=== PATIENT | female | born 1945 | race Caucasian/White ===

== ENCOUNTER → 2019-05-31 09:07 | Outpatient (BNVA) | payer MEDICARE, OTHER, SELFPAY | PROVIDERS: Family Provider Family Medicine; PCP Family Medicine; Visit Provider Internal Medicine Cardiovascular Disease | DX: E87.6 Hypokalemia (principal) | CPT/HCPCS: 80048 ==

== ENCOUNTER 2019-06-04 06:57 | Day surgery (SDC) | payer MEDICARE, OTHER, SELFPAY ==
[2019-06-03 11:52] VITALS: BMI 38.4
[2019-06-04 08:01] VITALS: BP 136/84; PULSE 70; RESP 18; TEMP 36.6; O2SAT 93
[2019-06-04] MEDS: sodium chloride 0.9% 1,000 ML 30 ML IV (08:08)
[2019-06-04] MEDS: ondansetron 2 mg/ML SDV 2 mL 4 MG IVP (08:17)
--- NOTE | 2019-06-04 08:33 | ANES.PREANES ---
Pre-Anesthetic Assessment Pre-Anesthetic Assessment: Height/Weight: Height 1.63 m Weight 101.605 kg Temp Pulse Resp BP Pulse Ox 98 F 70 18 136/84 93 06/04/19 08:01 06/04/19 08:01 06/04/19 08:01 06/04/19 08:01 06/04/19 08:01 Preop Diagnosis: dysphagia Proposed Procedure: Operation Date: 06/04/19 08:00 Proposed Procedures p EGD(Not Applicable) - Dhiraj Driscoll MD Familial anesthetic complications: ONce couldn't breath when she woke up after a hernia (did not require ETT; only supplemental O2) Was Beta Laura taken within 24 hours: Yes Last intake: Intake Last Liquid Date 06/03/19 Last Liquid Time 23:30 Last Solid Date 06/02/19 Last Solid Time 18:00 Social: Social History: No alcohol and No tobacco Exam: Pre-Anes Outpt Exam: alert, oriented x 3, clear to auscultation bilaterally and regular rate & rhythm Airway: Submandibular: Other (receding chin) MP: 4 Dentition: Full Pulmonary: Pulmonary: SOB CV/HEM: CV/HEM: Afib, Angina (Stable), Arrythmia and HTN Comments: MItral and aortic valve replaced : : Chronic renal failuer Hepatic: Hepatic: None reported GI: GI: Hiatus hernia Metabolic: Metabolic: DM, Morbid obesity and Thyroid Musc/skel: Musc/skel: OA/DJD Neuropsych: Neuropsych: TIA Anesthetic Plan: ASA status: IV Anesthesia: MAC Risk of > 500 ml blood loss (7ml/kg in children): No Other Pertinent Information: Took warfarn yesterday Meds/Allergies Current Medications: Current Medications Generic Name Dose Route Start Last Admin Trade Name Freq PRN Reason Stop Dose Admin Sodium Chloride 1,000 mls @ 30 ml s/hr 06/04/19 06:30 06/04/19 08:08 Sodium Chloride 0.9% IV 06/05/19 06:29 30 mls/hr .Q24H JACE Administration Ondansetron HCl 4 mg 06/04/19 06:24 06/04/19 08:17 Zofran IVP 4 mg Q15M PRN Administration Nausea/Vomiting P ACU PHASE II PFSH Anesthesia PFSH: Medical History (Updated 06/03/19 @ 19:25 by Ada Mcnair MD) Atrial fibrillation (Acute) Valvular heart disease (Acute) Social History (Updated 05/29/19 @ 14:46 by Becca Winters LPN) Smoking and tobacco status: never smoked Second hand smoke exposure: No Data Anesthesia Cardiac Studies: No Data to Display
--- NOTE | 2019-06-04 08:33 | PM.HPUD ---
H&P update H&P Update: DATE OF SURGERY/PROCEDURE: 06/04/19 DATE H&P PERFORMED: 05/02/19 H&P UPDATE INFORMATION: H&P completed within last 30 days, No changes to prior documentation and H&P to be scanned into chart PLANNED PROCEDURE: Operation Date: 06/04/19 08:00 Proposed Procedures p EGD(Not Applicable) - Dhiraj Driscoll MD Full H&P Medications/Allergies: Current Medications: Current Medications Generic Name Dose Route Start Last Admin Trade Name Freq PRN Reason Stop Dose Admin Sodium Chloride 1,000 mls @ 30 ml s/hr 06/04/19 06:30 06/04/19 08:08 Sodium Chloride 0.9% IV 06/05/19 06:29 30 mls/hr .Q24H JACE Administration Ondansetron HCl 4 mg 06/04/19 06:24 06/04/19 08:17 Zofran IVP 4 mg Q15M PRN Administration Nausea/Vomiting P ACU PHASE II Perinent History: Medical/Surgical History: Medical History (Updated 06/03/19 @ 19:25 by Ada Mcnair MD) Atrial fibrillation (Acute) Valvular heart disease (Acute) Social History: Social History Smoking and tobacco status: never smoked Second hand smoke exposure: No
[2019-06-04 08:56] VITALS: BP 124/67; PULSE 69; RESP 16; TEMP 36.9; O2SAT 96
--- NOTE | 2019-06-04 08:57 | ANE.PACU ---
 Inpatient post-anesthesia follow up: Airway intact: Yes Vital signs: Temperature 98 F Pulse Rate [Apical ] 70 Respiratory Rate 18 Blood Pressure [Le ft Arm] 136/84 Pulse Oximetry 93 Oxygen Delivery Me thod Oxygen Flow Rate Fraction of Inspir ed Oxygen Hydration adequate: Yes Pain level: 2 Mental status: Baseline
[2019-06-04 08:58] LABS: Glucose Point of Care 135 mg/dL (70-110)
[2019-06-04 09:11] VITALS: BP 130/74; PULSE 69; RESP 18; O2SAT 97
== END 2019-06-04 09:18 | disposition home or self-care (01) ==
PROVIDERS: Family Provider Family Medicine; PCP Family Medicine; Visit Provider Surgery
PROC: 0DJ08ZZ Inspection of Upper Intestinal Tract, Via Natural or Artificial Opening Endoscopic (ICD-10-PCS; CPT 43235; principal; 2019-06-04 08:00)
DX: R11.2 Nausea with vomiting, unspecified (principal); K22.2 Esophageal obstruction; K25.9 Gastric ulcer, unspecified as acute or chronic, without hemorrhage or perforation; K29.30 Chronic superficial gastritis without bleeding; E11.9 Type 2 diabetes mellitus without complications; E66.01 Morbid (severe) obesity due to excess calories; Z68.38 Body mass index [BMI] 38.0-38.9, adult; M19.90 Unspecified osteoarthritis, unspecified site; I48.91 Unspecified atrial fibrillation; Z79.01 Long term (current) use of anticoagulants; E03.9 Hypothyroidism, unspecified; I11.0 Hypertensive heart disease with heart failure; I50.9 Heart failure, unspecified; Z86.73 Personal history of transient ischemic attack (TIA), and cerebral infarction without residual deficits; E78.00 Pure hypercholesterolemia, unspecified; Z82.49 Family history of ischemic heart disease and other diseases of the circulatory system
CPT/HCPCS: 36416; 43239; 82962; 88305; J2405; J2704; J7030

== ENCOUNTER 2019-06-06 20:19 | Inpatient (IN) | payer MEDICARE, OTHER, SELFPAY ==
[2019-06-06] VITALS (10 sets, daily range): BP systolic 100–115; BP diastolic 40–51; PULSE 34–59; RESP 18–22; TEMP 36.7; O2SAT 91–98; BMI 37.7
--- NOTE | 2019-06-06 20:35 | ECG_ITS ---
Measurements Intervals [place] Rate: 74 P: [place]: 0 QRS: 78 QRSD: 85 T: 80 QT: 278 QTc: 310 Sinus bradycardia with first-degree AV block, occasional PACs and occasional junctional premature beats NONSPECIFIC T-WAVE ABNORMALITY ABNORMAL RHYTHM ECG Compared to ECG 05/16/2019 09:58:09 Aberrant conduction of supraventricular beat(s) now present T-wave abnormality now present Sinus rhythm no longer present Electronically Signed On 06-07-2019 14:38:21 [employer] by Roque Driscoll M.D. [id number]
--- NOTE | 2019-06-06 20:35 | XR_ITS ---
WS: [id number] Portable AP upright chest, 06/06/2019 Clinical Data: CHEST PAIN Comparison: Portable chest, 05/14/2019. Findings: The heart is slightly enlarged. The pulmonary vascularity is not increased. No nodules, mas ses or effusions are seen. Midline sternotomy sutures are present in the patient is had cardiac valve replacement. Monitor leads are on the chest wall. No pneumonia or pneumothorax is seen. XR/XR chest 1V portable [id number] Impression: Cardiomegaly and mitral and aortic valve replacement.
--- NOTE | 2019-06-06 20:37 | ED_ITS ---
Entered by Candie Smith, acting as scribe for HPI - Chest Pain General: Chief Complaint: Chest Pain Stated Complaint: LOW HR Time Seen by Provider: 06/06/19 20:34 Source: patient and family Mode of arrival: ambulatory Limitations: no limitations History of Present Illness: HPI narrative: 73 yo female presents to ED with complaints of chest pain. The patient states sick and not feeling well for a while. She said last 2 days pain in shoulders and neck. She said she is short of breath and feels like she has ran miles. She said she has been shaky all over, especially her head, since about 05.31.19. complaint: chest pain and chest discomfort Onset (ago): day(s) (2) Timing of current episode: constant Onset: during rest Pain location: other (neck, shoulders) Pain radiation: back Severity: severe Quality: sharp Relieving factors: nothing Exacerbating factors: nothing Associated symptoms: Reports dyspnea; Deny abdominal pain, diaphoresis, fever(s), nausea, palpitations or vomiting Review of Systems General: Reports: other (negative unless marked) Const: Denies: fever, chills, body aches, fatigue, malaise or diaphoresis Eyes: Denies: change in vision or blurry vision ENMT: Denies: throat pain, painful swallowing, hoarseness, ear pain, ear discharge, Change in hearing or nasal discharge Card: Denies: palpitations, pre-syncope, shortness of breath on exertion or shortness of breath when lying down Resp: Reports: shortness of breath GI: Denies: abdominal pain, nausea, vomiting, vomiting blood, coffee grounds in vomit, diarrhea, constipation, cramping, blood in stool or black tarry stool : Denies: flank pain, painful urination, urinary frequency, urinary urgency, decreased urine ouput, urinary incontinence or blood in urine Musc: Denies: extremity pain, extremity swelling, joint pain, joint swelling, joint warmth or joint stiffness Skin/Breast: Denies: rash, skin tenderness or yellow skin Neuro: Denies: headache, numbness in extremities, weakness in extremities, changes in sensation, lack of coordination, difficulty walking, dizziness, vertigo or confusion Endo: Denies: excessive thirst, tired all the time, cold intolerance, excessive sweating, flushing or hot flashes Bin/Lymph: Denies: easy bruising, easy bleeding, petechiae or enlarged lymph nodes All/Imm: Denies: hives, throat swelling, tongue swelling, facial swelling or acute wheezing PFSH ED PFSH: Statuses (acute, chronic, etc) shown below reflect problem list status as previously entered and may not be historically accurate Medical History Atrial fibrillation (Acute) History of ablation and Maze procedure, on Betapace, follows with Dr. Mcnair Chronic anticoagulation (Acute) Chronic kidney disease, stage IV (severe) (Acute) Congestive heart failure (Acute) Chronic diastolic Diabetes mellitus type 2, noninsulin dependent (Acute) Hypercholesteremia (Acute) Hypertension (Acute) Hypothyroidism (Acute) Valvular heart disease (Acute) Bioprosthetic valve Surgical History H/O esophagogastroduodenoscopy (Acute) 06/17/2019: Gastric erosions, hiatal hernia History of hernia repair (Acute) History of hysterectomy (Acute) Hx of colonoscopy (Acute) Family History Other CAD (coronary artery disease) Social History Smoking and tobacco status: never smoked Second hand smoke exposure: No Alcohol intake: never Substance/Drug Use: never Household members: spouse Marital status: Physical Exam Const: COMMON NORMALS: no apparent distress, oriented x3, no limitations, healthy appearing and well nourished EXAM LIMITATIONS: no altered mental status GENERAL APPEARANCE: cooperative, well kempt and well developed ORIENTATION/CONSCIOUSNESS: Yes awake HENMT: COMMON NORMALS: normocephalic, head/scalp atraumatic, hearing grossly normal bilaterally, external ears normal, EAC's normal, external nose normal and moist oral mucous membranes HEAD & SCALP: normal to inspection, normocephalic and atraumatic FACE & SINUS: normal facial exam and face symmetric NOSE: external nose normal and nares normal EXTERNAL EAR: Yes external ears normal EXTERNAL AUDITORY CANAL: EAC's normal MOUTH: oral and palatal mucosa normal and tongue normal Eye: COMMON NORMALS: PERRL, EOMs intact bilaterally, conjunctivae normal and no scleral icterus GENERAL EYE: normal appearance of both eyes and normal light reflex CONJUNCTIVA: Yes conjunctivae normal SCLERA: sclerae normal CORNEA: Yes corneas normal PUPIL: Yes PERRL DIRECT OPHTHALMOSCOPY: Yes normal light reflex Neck/C-Spine: COMMON NORMALS: full ROM, no lymphadenopathy, supple, no meningeal signs and no JVD GENERAL: Yes normal visual inspection and Yes trachea midline CERVICAL SPINE: Yes cervical ROM normal Chest: COMMONS NORMALS: inspection of chest normal and palpation of chest normal Resp: COMMON NORMALS: normal respiratory effort, no retractions, no use of accessory muscles and clear to auscultation bilaterally EFFORT & INSPECTION: Yes able to speak in complete sentences AUSCULTATION: clear to auscultation bilaterally Cardio: COMMON NORMALS: no JVD, S1 normal heart sound and S2 normal heart sound RATE: bradycardic HEART SOUNDS: S1 normal and S2 normal GI: COMMON NORMALS: soft to palpation, non-tender, no hepatosplenomegaly and no masses INSPECTION: Yes normal to inspection PALPATION: Yes soft and Yes no hepatosplenomegaly : COMMON NORMALS: Yes no CVA tenderness BLADDER/KIDNEY EXAM: Yes no CVA tenderness Back/Pelvis: COMMON NORMALS: no CVA tenderness, thoracic and lumbar spine normal to inspection, no thoracic nor lumbar tenderness and thoraco-lumbar ROM normal Extremity: COMMON NORMALS: normal to inspection, full ROM, normal capillary refill, no joint enlargement, no clubbing, cyanosis or edema and no calf tenderness Neuro: COMMON NORMALS: oriented x3, CN's II-XII intact bilaterally, moves all extremities, no focal motor deficits and no sensory deficits noted MENINGEAL SIGNS: Yes no meningeal signs Psych: COMMON NORMALS: mental status grossly normal, thought process normal, cooperative, affect normal, speech normal and activity/motor behavior normal APPEARANCE: Yes well kempt SPEECH: Yes normal speech THOUGHT PROCESS: normal thought process Skin: COMMON NORMALS: no rashes or lesions noted, skin turgor normal, no jaundice, no petechiae and no mottling GENERAL SKIN EXAM: no rashes or lesions noted and turgor normal Course Vital Signs: Vital signs: Vital Signs Temperature 98.5 F 06/07/19 11:16 Pulse Rate 62 06/07/19 11:16 Respiratory Rate 20 H 06/07/19 11:16 Blood Pressure 115/55 06/07/19 11:16 Pulse Oximetry 93 06/07/19 11:16 MDM - Chest Pain MDM Narrative: Medical decision making narrative: 2054-Case reviewed with Dr. Driscoll, he recommends waiting for potassium creatinine, he says atropine can be tried but does not think it will be effective. He states as long as the patient's blood pressure remained stable he would continue to watch her and check her kidney function. 2299-the patient's potassium is down and her heart rate is better. Her blood pressure is always been stable. I have reviewed the case in full with Dr. Rubin who is agreeable to admission. Lab Data: Labs: Lab Results 06/06/19 06/06/19 06/06/19 Range/Units 20:40 20:40 20:40 WBC 9.4 (4.0-10.0) 10^3/ uL RBC 3.54 L (4.1-5.3) 10^6/u L Hgb 10.8 L (11.5-15.3) g/dL Hct 32.7 L (37.0-47.0) % MCV 92.4 (81-99) fL MCH 30.5 (28.0-34.0) pg MCHC 33.0 (30.0-36.0) g/dL RDW 14.3 (12.1-15.1) % Plt Count 246 (130-400) 10^3/c mm MPV 10.5 H (7.4-10.4) fL Neut % (Auto) 71.4 % Lymph % (Auto) 15.0 % [place] % (Auto) 10.4 % Eos % (Auto) 2.4 % Baso % (Auto) 0.4 % Neut # (Auto) 6.7 (1.8-7.7) 10^3/u L Lymph # (Auto) 1.4 (0.8-4.8) 10^3/u L [place] # (Auto) 1.0 H (0.2-0.9) 10^3/u L Eos # (Auto) 0.2 (0.0-0.8) 10^3/u L Baso # (Auto) 0.0 (0.0-0.1) 10^3/u L Nucleated RBC % (a uto) 0 % Nucleated RBCs # 0.0 /100WBC PT 29.40 H (10.5-13.3) SECO NDS INR 2.67 H (0.8-1.2) APTT 41.8 H (23.9-36.7) SECO NDS Sodium 128 L (136-145) mmol/L Potassium 6.2 H (3.5-5.1) mmol/L Chloride 91 L (98-107) mmol/L Carbon Dioxide 24 (22-29) mmol/L Anion Gap 19.2 H (5-19) BUN 42 H (8-23) mg/dL Creatinine 2.7 H (0.5-0.9) mg/dL Glucose 169 H (74-106) mg/dL Calcium 10.8 H (8.8-10.2) mg/Dl Magnesium (1.7-2.3) mg/dL Total Bilirubin 0.3 (0.15-1.2) mg/dL AST 21 (0-32) U/L ALT 21 (0-33) U/L Alkaline Phosphata se 134 H (35-105) IU/L Troponin T Baselin e (0-10) ng/mL Troponin T 120 Min kake (0-10) ng/mL Delta Troponin T (0-10) ABS# NT-Pro-B Natriuret Pep 1480 H (0-125) pg/mL Total Protein 7.8 (6.6-8.7) g/dL Albumin 4.4 (3.5-5.2) g/dL Globulin 3.4 (1.3-4.6) g/dL Urine Color (Yellow) Urine Appearance (CLEAR) Urine pH (5-7) Ur Specific Gravit y (1.005-1.030) Urine Protein (Negative) Urine Glucose (UA) (Normal) Urine Ketones (Negative) Urine Occult Blood (Negative) Urine Nitrate (Negative) Urine Bilirubin (NEGATIVE) Urine Urobilinogen (Negative) mg/dL Ur Leukocyte Akanksha ase (Negative) Urine Opiates Scre en (Negative) ng/mL Ur Barbiturates Sc reen (Negative) ng/mL Ur Phencyclidine S crn (Negative) ng/mL Ur Amphetamines Sc reen (Negative) ng/mL U Benzodiazepines Scrn (Negative) ng/mL Urine Cocaine Scre en (Negative) ng/mL U Marijuana (THC) Screen (Negative) ng/mL 06/06/19 06/06/19 06/06/19 Range/Units 20:40 20:40 21:15 WBC (4.0-10.0) 10^3/ uL RBC (4.1-5.3) 10^6/u L Hgb (11.5-15.3) g/dL Hct (37.0-47.0) % MCV (81-99) fL MCH (28.0-34.0) pg MCHC (30.0-36.0) g/dL RDW (12.1-15.1) % Plt Count (130-400) 10^3/c mm MPV (7.4-10.4) fL Neut % (Auto) % Lymph % (Auto) % [place] % (Auto) % Eos % (Auto) % Baso % (Auto) % Neut # (Auto) (1.8-7.7) 10^3/u L Lymph # (Auto) (0.8-4.8) 10^3/u L [place] # (Auto) (0.2-0.9) 10^3/u L Eos # (Auto) (0.0-0.8) 10^3/u L Baso # (Auto) (0.0-0.1) 10^3/u L Nucleated RBC % (a uto) % Nucleated RBCs # /100WBC PT (10.5-13.3) SECO NDS INR (0.8-1.2) APTT (23.9-36.7) SECO NDS Sodium (136-145) mmol/L Potassium (3.5-5.1) mmol/L Chloride (98-107) mmol/L Carbon Dioxide (22-29) mmol/L Anion Gap (5-19) BUN (8-23) mg/dL Creatinine (0.5-0.9) mg/dL Glucose (74-106) mg/dL Calcium (8.8-10.2) mg/Dl Magnesium 2.5 H (1.7-2.3) mg/dL Total Bilirubin (0.15-1.2) mg/dL AST (0-32) U/L ALT (0-33) U/L Alkaline Phosphata se (35-105) IU/L Troponin T Baselin e 18 H (0-10) ng/mL Troponin T 120 Min kake (0-10) ng/mL Delta Troponin T (0-10) ABS# NT-Pro-B Natriuret Pep (0-125) pg/mL Total Protein (6.6-8.7) g/dL Albumin (3.5-5.2) g/dL Globulin (1.3-4.6) g/dL Urine Color Yellow (Yellow) Urine Appearance Clear (CLEAR) Urine pH 7 (5-7) Ur Specific Gravit y 1.010 (1.005-1.030) Urine Protein Neg (Negative) Urine Glucose (UA) Norm (Normal) Urine Ketones Negative (Negative) Urine Occult Blood Neg (Negative) Urine Nitrate Negative (Negative) Urine Bilirubin Neg (NEGATIVE) Urine Urobilinogen Norm (Negative) mg/dL Ur Leukocyte Akanksha ase Negative (Negative) Urine Opiates Scre en (Negative) ng/mL Ur Barbiturates Sc reen (Negative) ng/mL Ur Phencyclidine S crn (Negative) ng/mL Ur Amphetamines Sc reen (Negative) ng/mL U Benzodiazepines Scrn (Negative) ng/mL Urine Cocaine Scre en (Negative) ng/mL U Marijuana (THC) Screen (Negative) ng/mL 06/06/19 06/06/19 Range/Units 21:15 22:30 WBC (4.0-10.0) 10^3/ uL RBC (4.1-5.3) 10^6/u L Hgb (11.5-15.3) g/dL Hct (37.0-47.0) % MCV (81-99) fL MCH (28.0-34.0) pg MCHC (30.0-36.0) g/dL RDW (12.1-15.1) % Plt Count (130-400) 10^3/c mm MPV (7.4-10.4) fL Neut % (Auto) % Lymph % (Auto) % [place] % (Auto) % Eos % (Auto) % Baso % (Auto) % Neut # (Auto) (1.8-7.7) 10^3/u L Lymph # (Auto) (0.8-4.8) 10^3/u L [place] # (Auto) (0.2-0.9) 10^3/u L Eos # (Auto) (0.0-0.8) 10^3/u L Baso # (Auto) (0.0-0.1) 10^3/u L Nucleated RBC % (a uto) % Nucleated RBCs # /100WBC PT (10.5-13.3) SECO NDS INR (0.8-1.2) APTT (23.9-36.7) SECO NDS Sodium 133 L (136-145) mmol/L Potassium 5.6 H (3.5-5.1) mmol/L Chloride 94 L (98-107) mmol/L Carbon Dioxide 30 H (22-29) mmol/L Anion Gap 14.6 (5-19) BUN 39 H (8-23) mg/dL Creatinine 2.3 H (0.5-0.9) mg/dL Glucose 276 H (74-106) mg/dL Calcium 9.9 (8.8-10.2) mg/Dl Magnesium (1.7-2.3) mg/dL Total Bilirubin (0.15-1.2) mg/dL AST (0-32) U/L ALT (0-33) U/L Alkaline Phosphata se (35-105) IU/L Troponin T Baselin e (0-10) ng/mL Troponin T 120 Min kake 13.84 H (0-10) ng/mL Delta Troponin T -4.16 L (0-10) ABS# NT-Pro-B Natriuret Pep (0-125) pg/mL Total Protein (6.6-8.7) g/dL Albumin (3.5-5.2) g/dL Globulin (1.3-4.6) g/dL Urine Color (Yellow) Urine Appearance (CLEAR) Urine pH (5-7) Ur Specific Gravit y (1.005-1.030) Urine Protein (Negative) Urine Glucose (UA) (Normal) Urine Ketones (Negative) Urine Occult Blood (Negative) Urine Nitrate (Negative) Urine Bilirubin (NEGATIVE) Urine Urobilinogen (Negative) mg/dL Ur Leukocyte Akanksha ase (Negative) Urine Opiates Scre en Negative (Negative) ng/mL Ur Barbiturates Sc reen Negative (Negative) ng/mL Ur Phencyclidine S crn Negative (Negative) ng/mL Ur Amphetamines Sc reen Negative (Negative) ng/mL U Benzodiazepines Scrn Positive H (Negative) ng/mL Urine Cocaine Scre en Negative (Negative) ng/mL U Marijuana (THC) Screen Negative (Negative) ng/mL Discharge Plan Discharge Patient Disposition: Admitted As Inpatient Admit Provider: Anastasiia Rubin Discharge Date/Time: 06/07/19 00:23 Coding Level of Care Code ED Roller Leveler for g Fwd The documentation recorded by the Luis bernal Valerie R, accurately reflects the service I personally performed and the decisions made by Mark ponce Eli N Jun 06, 2019 20:19
[2019-06-06 20:52] LABS: Basophils % 0.4 %; Eosinophils # 0.2 10^3/uL (0.0-0.8); Eosinophils % 2.4 %; Hematocrit 32.7 % (37.0-47.0); Hemoglobin 10.8 g/dL (11.5-15.3); Lymphocytes # 1.4 10^3/uL (0.8-4.8); Mean Corpuscular Hemoglobin 30.5 pg (28.0-34.0); Mean Corpuscular Volume 92.4 fL (81-99); Mean Platelet Volume 10.5 fL (7.4-10.4); Monocytes % 10.4 %; Neutrophils # 6.7 10^3/uL (1.8-7.7); Neutrophils % 71.4 %; Nucleated Red Blood Cells % 0 %; Platelet Count 246 10^3/cmm (130-400); Red Blood Count 3.54 10^6/uL (4.1-5.3); Red Cell Distribution Width 14.3 % (12.1-15.1); White Blood Count 9.4 10^3/uL (4.0-10.0)
[2019-06-06 21:02] LABS: INR 2.67 (0.8-1.2)
[2019-06-06 21:03] LABS: Partial Thromboplastin Time 41.8 SECONDS (23.9-36.7)
[2019-06-06 21:06] LABS: Magnesium 2.5 mg/dL (1.7-2.3)
[2019-06-06 21:07] LABS: Troponin(5th) Baseline 18 ng/mL (0-10)
[2019-06-06 21:15] LABS: Alanine Aminotransferase 21 U/L (0-33); Albumin Level 4.4 g/dL (3.5-5.2); Alkaline Phosphatase 134 IU/L (35-105); Anion Gap 19.2 (5-19); Aspartate Amino Transferase 21 U/L (0-32); Blood Urea Nitrogen 42 mg/dL (8-23); Calcium 10.8 mg/Dl (8.8-10.2); Carbon Dioxide 24 mmol/L (22-29); Chloride 91 mmol/L (98-107); Globulin 3.4 g/dL (1.3-4.6); Glucose 169 mg/dL (74-106); NT Pro B Type Natriuretic Pept 1480 pg/mL (0-125); Potassium 6.2 mmol/L (3.5-5.1); Sodium 128 mmol/L (136-145); Total Bilirubin 0.3 mg/dL (0.15-1.2); Total Protein 7.8 g/dL (6.6-8.7)
[2019-06-06] MEDS: atropine 0.1 mg/mL Syr 10 mL 2 MG IVP (21:18)
[2019-06-06] MEDS: sodium chloride 0.9% 1,000 ML 999 ML IV (21:19)
[2019-06-06 21:25] LABS: Add Urine Microscopic? NO
[2019-06-06 21:29] LABS: Bilirubin Urine Neg (NEGATIVE); Blood Urine Neg (Negative); Glucose Urine UA Norm (Normal); Ketones Urine Negative (Negative); Leukocyte Esterase Urine Negative (Negative); Nitrate Urine Negative (Negative); Protein Urine Neg (Negative); Urine Appearance Clear (CLEAR); Urine Color Yellow (Yellow); Urobilinogen Urine Norm (Negative); pH Urine 7 (5-7)
[2019-06-06 21:33] LABS: Amphetamines Screen Urine Negative (Negative); Barbiturates Screen Urine Negative (Negative); Benzodiazepines Screen Urine Positive (Negative); Cocaine Screen Urine Negative (Negative); Opiate Screen Urine Negative (Negative); PCP Screen Urine Negative (Negative); THC Screen Urine Negative (Negative)
[2019-06-06] MEDS: morphine 4 mg/mL SDV 1 mL 2 MG IVP (22:17)
[2019-06-06] MEDS: dextrose 50% syringe 50 mL IVP (22:22)
[2019-06-06] MEDS: insulin regular-human 100 units/1 mL 10 UNIT IVP (22:33)
[2019-06-06] MEDS: aspirin 81 mg Chew Tablet 324 MG PO (22:33)
--- NOTE | 2019-06-06 22:35 | ECG_ITS ---
Measurements Intervals [place] Rate: 66 P: 103 TN: 177 QRS: 79 QRSD: 89 T: 73 QT: 429 QTc: 451 SINUS RHYTHM WITH SINUS ARRHYTHMIA NONSPECIFIC T-WAVE ABNORMALITY Compared to ECG 05/16/2019 09:58:09 T-wave abnormality now present Electronically Signed On 06-07-2019 14:43:57 [employer] by Roque Driscoll M.D. [id number]
[2019-06-06] MEDS: sodium bicarbonate 1 mEq/mL SDV 50mL 150 MEQ XX (22:45)
[2019-06-06] MEDS: sodium chloride 0.9% 1,000 ML 150 ML IV (22:58)
[2019-06-06 23:03] LABS: Anion Gap 14.6 (5-19); Blood Urea Nitrogen 39 mg/dL (8-23); Calcium 9.9 mg/Dl (8.8-10.2); Carbon Dioxide 30 mmol/L (22-29); Chloride 94 mmol/L (98-107); Glucose 276 mg/dL (74-106); Potassium 5.6 mmol/L (3.5-5.1); Sodium 133 mmol/L (136-145); Troponin 5 2HR 13.84 ng/mL (0-10)
[2019-06-06 23:06] LABS: Troponin 5 2HR Delta -4.16 ABS# (0-10)
[2019-06-07] VITALS (10 sets, daily range): BP systolic 94–139; BP diastolic 39–67; PULSE 58–77; RESP 15–22; TEMP 36.3–36.9; O2SAT 92–98
--- NOTE | 2019-06-07 01:22 | PC.NURSE ---
0100: Admitted to room 105 from ED with complaints of Chest Pain and Bradycardia. Patient was admitted in April with diagnosis of Bradycardia. Patient states, They say it's my Potassium being too high that's causing this. Assessment completed. Oriented to room. Call light with in reach. Dr. Rubin at nurses' station. This nurse asked if patient could have water and Dr. Rubin stated yes. Water given to patient. Pillow and blanket given to spouse who is at bedside. Denies complaints at this time. Will monitor.
[2019-06-07] MEDS: sodium chloride 0.9% 1,000 ML 100 ML IV (02:13)
--- NOTE | 2019-06-07 02:35 | ECG_ITS ---
Measurements Intervals [place] Rate: 57 P: 87 MS: 185 QRS: 72 QRSD: 90 T: 55 QT: 478 QTc: 466 SINUS BRADYCARDIA PROLONGED QT INTERVAL Compared to ECG 05/16/2019 09:58:09 Prolonged QT interval now present Sinus rhythm no longer present [id number]
[2019-06-07 04:08] LABS: Troponin 5 6HR 12.85 ng/L (0-10)
--- NOTE | 2019-06-07 06:01 | PC.NURSE ---
Monitor continues to show SB with no ectopy noted. Patient and spouse have rested most of night. No s/s of distress noted. Will monitor.
[2019-06-07 06:12] LABS: Troponin 5 6HR Delta -5.15 ng/L (0-12)
--- NOTE | 2019-06-07 06:33 | P.HP_ITS ---
Providers/Chief Complaint Admitting Physician: Anastasiia Rubin MD Primary Care Provider: Pankaj Dela Cruz MD Chief Complaint: LOW HR History of Present Illness Mrs. Sexton is a 73-year-old female who presented to the emergency room with chief complaint of chest discomfort and general malaise. Symptoms have been progressively worsening over the last few days. She has had some palpitations and a feeling of being shaky all over. She has stayed fairly dizzy. She has been short of breath particularly with exertion. Chest pain is located in the upper chest and radiates into her shoulders and occasionally through to her back. Nothing seems to make it better or worse. It comes and goes in severity but to some degree has been constant for the last day or so prompting the ER visit. In the emergency room patient was found to be hyperkalemic with a potassium 6.2. She was also bradycardic into the 30s. She received usual treatment for hyperkalemia and heart rate has improved into the 60s. She is on potassium supplementation in addition to diuretic therapy with both Lasix and Aldactone. She is also on sotalol. Looks like she had a very similar admission in April. She is being admitted for further evaluation and treatment. The only new medications recently is the addition of Protonix and the addition of a medication for anxiety per her. Reading through some old notes, patient has historically had issues with hypokalemia that was very difficult to treat so the recurrent problems with hyperkalemia lately are new for her. Review of Systems Const: Reports: fatigue and malaise; Denies: fever or chills Eyes: Denies: change in vision or blurry vision ENMT: Denies: throat pain or nasal discharge Card: Reports: chest pain, palpitations, lightheadedness and shortness of breath on exertion Resp: Reports: shortness of breath GI: Denies: abdominal pain, nausea, vomiting, blood in stool or black tarry stool : Denies: urinary frequency or urinary urgency Musc: Denies: joint pain or joint swelling Skin/Breast: Denies: rash Neuro: Denies: headache, numbness in extremities or weakness in extremities Endo: Denies: flushing Bin/Lymph: Denies: easy bruising or easy bleeding Medications/Allergies Allergies Allergy/AdvReac Type Severity Reaction Status Date / Time adhesive tape Allergy ALGY-Rash Verified 06/06/19 21:03 Additional Medication Information Additional Medication Information: Home medications have to be further confirmed like to include sotalol, Lasix, Aldactone, potassium supplementation, among others PFSH Acute PFSH: Statuses (acute, chronic, etc) shown below reflect problem list status as previously entered and may not be historically accurate Medical History Atrial fibrillation (Acute) History of ablation and Maze procedure, on Betapace, follows with Dr. Mcnair Chronic anticoagulation (Acute) Chronic kidney disease, stage IV (severe) (Acute) Congestive heart failure (Acute) Chronic diastolic Diabetes mellitus type 2, noninsulin dependent (Acute) Hypercholesteremia (Acute) Hypertension (Acute) Hypothyroidism (Acute) Valvular heart disease (Acute) Bioprosthetic valve Surgical History H/O esophagogastroduodenoscopy (Acute) 06/17/2019: Gastric erosions, hiatal hernia History of hernia repair (Acute) History of hysterectomy (Acute) Hx of colonoscopy (Acute) Family History Other CAD (coronary artery disease) Social History Smoking and tobacco status: never smoked Second hand smoke exposure: No Alcohol intake: never Substance/Drug Use: never Household members: spouse Marital status: Vitals/I&O/Wt Last Vital Signs Temp 98 F 06/07/19 05:00 Pulse 60 06/07/19 05:00 Resp 15 06/07/19 05:00 BP 139/60 06/07/19 05:00 Pulse Ox 98 06/07/19 05:00 06/06/19 06/06/19 06/07/19 14:59 22:59 06:59 Intake Total 1000 / 1000 510 / 1510 Output Total 1000 / 1000 Balance 1000 / 1000 -490 / 510 Weight last 48 hrs Weight 101.605 kg Weight 96.615 kg Physical Exam Const: COMMON NORMALS: oriented x3 and alert GENERAL APPEARANCE: anxious and frail appearing HENMT: COMMON NORMALS: normocephalic, head/scalp atraumatic and moist oral mucous membranes Eye: COMMON NORMALS: PERRL and EOMs intact bilaterally Resp: COMMON NORMALS: no use of accessory muscles and clear to auscultation bilaterally Cardio: COMMON NORMALS: regular rhythm JUGULAR VENOUS DISTENTION: no JVD RATE: bradycardic PERIPHERAL PULSES: pulses 2+ throughout GI: COMMON NORMALS: normal to inspection, nondistended, normoactive bowel sounds, soft to palpation and non-tender Extremity: COMMON NORMALS: normal to inspection and no clubbing, cyanosis or edema Neuro: COMMON NORMALS: oriented x3 and moves all extremities Skin: NARRATIVE SKIN EXAM: Soft tissue fullness left buttock, scattered bruises and hypertrophic nails but no acute wounds or sores noted Urinary Catheter Management^: Bowman: Cath Placed During This Visit: no Data Other Data: Other data: Short CBC 06/06/19 Range/Units 20:40 WBC 9.4 (4.0-10.0) 10^3/ uL Hgb 10.8 L (11.5-15.3) g/dL Hct 32.7 L (37.0-47.0) % Plt Count 246 (130-400) 10^3/c mm BMP 06/06/19 06/06/19 20:40 22:30 Sodium 128 L 133 L Potassium 6.2 H 5.6 H Chloride 91 L 94 L Carbon Dioxide 24 30 H BUN 42 H 39 H Creatinine 2.7 H 2.3 H Glucose 169 H 276 H Calcium 10.8 H 9.9 Liver Function 06/06/19 Range/Units 20:40 Total Bilirubin 0.3 (0.15-1.2) mg/dL AST 21 (0-32) U/L ALT 21 (0-33) U/L Alkaline Phosphata se 134 H (35-105) IU/L Albumin 4.4 (3.5-5.2) g/dL Urine 06/06/19 Range/Units 21:15 Urine Color Yellow (Yellow) Urine Appearance Clear (CLEAR) Urine pH 7 (5-7) Ur Specific Gravit y 1.010 (1.005-1.030) Urine Protein Neg (Negative) Urine Glucose (UA) Norm (Normal) A&P Assessment and plan (1) Bradycardia: Seems to be related to hyperkalemia of which patient may be very sensitive to given this is the second admission in the last month with similar presentation Status: Acute Code(s): R00.1 - Bradycardia, unspecified (2) Hyperkalemia: Multifactorial from potassium supplementation, potassium sparing diuretics and chronic kidney disease Status: Acute Code(s): E87.5 - Hyperkalemia (3) Atrial fibrillation: Status: Acute Qualifiers: Atrial fibrillation type: longstanding persistent Qualified Code(s): I48.11 - Longstanding persistent atrial fibrillation Code(s): I48.91 - Unspecified atrial fibrillation (4) Chronic kidney disease, stage IV (severe): Status: Acute Code(s): N18.4 - Chronic kidney disease, stage 4 (severe) (5) Chronic anticoagulation: Status: Acute Code(s): Z79.01 - [facility]CI (current) use of anticoagulants (6) Diabetes mellitus type 2, noninsulin dependent: Status: Acute Code(s): E11.9 - Type 2 diabetes mellitus without complications Additional A&P Information Additional A&P Information: Observation admission for now IV fluids Serial lab Cardiology consultation Discussed resumption of potassium, Aldactone and sotalol with cardiology Telemetry monitoring Hold Coumadin today restart at a lower dose No medications otherwise do need to be further clarified and resumed as appropriate Corrective dose insulin Current supratherapeutic INR sufficient for DVT prophylaxis Supportive care otherwise Plans discussed with patient and she was given an opportunity to ask questions Attestations Medical Necessity Statement*: Currently anticipated stay less than 2 midnights in a patient with bradycardia related to hyperkalemia which appears to be in part due to medications and worsening renal function over time. Plans are as noted. Coding Level of Care Code Acute Publications Inspector for [facility] Diagnoses Bradycardia R00.1 Hyperkalemia E87.5 Atrial fibrillation I48.11 Atrial fibrillation type: longstanding persistent Chronic kidney disease, stage IV (severe) N18.4 Chronic anticoagulation Z79.01 Diabetes mellitus type 2, noninsulin dependent E11.9
--- NOTE | 2019-06-07 07:02 | ECG_ITS ---
Measurements Intervals [place] Rate: 57 P: 87 WV: 185 QRS: 72 QRSD: 90 T: 55 QT: 478 QTc: 466 SINUS BRADYCARDIA PROLONGED QT INTERVAL Compared to ECG 05/16/2019 09:58:09 Prolonged QT interval now present Sinus rhythm no longer present Electronically Signed On 06-07-2019 14:44:42 [employer] by Roque Driscoll M.D. [email or web address]
[2019-06-07 09:21] LABS: INR 2.72 (0.8-1.2)
[2019-06-07 09:30] LABS: Anion Gap 12.1 (5-19); Blood Urea Nitrogen 33 mg/dL (8-23); Carbon Dioxide 28 mmol/L (22-29); Chloride 96 mmol/L (98-107); Glucose 174 mg/dL (74-106); Potassium 4.1 mmol/L (3.5-5.1); Sodium 132 mmol/L (136-145)
[2019-06-07] MEDS: morphine 4 mg/mL SDV 1 mL 2 MG IVP (09:50)
--- NOTE | 2019-06-07 10:34 | P.CONIM_ITS ---
Providers/Reason For Consult Consulting Physican/Specialty*: Dr ROSIBEL Mcnair/cardiology Reason for Consult*: Patient with atrial fibrillation/bradycardia/hypokalemia Attending Physician: Osmin Fung MD Primary Care Provider: Pankaj Dela Cruz MD History of Present Illness History of Present Illness Lori Sexton is a 73 year old female with a longstanding history of chronic intermittent atrial fibrillation, status post endocardial ablation, epicardial ablation, maze procedure, multiple cardioversions, has been fairly stable with the higher dose of Betapace. She has been taking 160 mg p.o. twice daily. She is known to have chronic renal insufficiency and severe hypokalemia of unknown etiology. She is being followed by a bagger and stock handler helper. Because of the severe hypokalemia, she was placed on high dose of potassium and spironolactone. Patient is admitted to the hospital with complaints of generalized weakness and bradycardia. She had some medication changes recently because of the hypokalemia. He also was started on Protonix and Carafate after recent endoscopy for stomach ulcers. She has not been feeling well for the last 1 month or so. Her appetite has been poor. She denies any unusual chest pain or shortness of breath. Review of Systems Const: Reports: malaise and other (Anorexia, some feeling of weakness); Denies: fever, chills, fatigue or night sweats Eyes: Denies: change in vision, blurry vision or eye discomfort ENMT: Denies: bleeding gums, nose bleeds or other (Spinning Sensation, Trouble Swallowing) Card: Denies: syncope, pre-syncope, shortness of breath when lying down or leg pain with exertion Resp: Denies: productive cough, change in phlegm color or coughing up blood GI: Reports: other (Had some nausea and abdominal discomfort); Denies: vomiting, vomiting blood, bloating, blood in stool or black tarry stool : Reports: other (Known to have chronic kidney disease. She is being followed by nephrology); Denies: blood in urine Musc: Denies: neck pain, extremity pain, extremity swelling, redness, muscle cramps, muscle weakness or other (Neck Pain or Swollen Glands) Skin/Breast: Denies: rash, itching, redness, new lesion, changes in skin color, yellow skin, nail changes or breast mass/lump Neuro: Denies: headache, changes in sensation, lack of coordination, frequent falls, dizziness, vertigo, seizure-like activity or other (TIA, Numbness) Psych: Reports: other (Delusions, Disorientation, or Insomnia); Denies: visual hallucinations, auditory hallucinations or tactile hallucinations Endo: Denies: excessive urination, excessive thirst or other (Abnormal Hair Loss) Bin/Lymph: Denies: easy bruising All/Imm: Denies: hives Meds/Allergies Home Medications and Allergies Home Medications Medication Instructions Recorded Confirmed Type furosemide 40 mg tablet 40 mg PO BID 05/29/19 06/03/19 History levothyroxine 75 mcg capsule 75 mcg PO ONCE 05/29/19 06/04/19 History magnesium 250 mg tablet 250 mg PO BID tab 05/29/19 06/03/19 History montelukast 10 mg tablet 10 mg PO ONCE 05/29/19 06/03/19 History pioglitazone 30 mg tablet 30 mg PO ONCE 05/29/19 06/03/19 History potassium chloride 20 mEq 20 meq PO BID 05/29/19 06/03/19 History tablet,extended release sotalol 160 mg tablet 160 mg PO BID 05/29/19 06/03/19 History spironolactone 50 mg tablet 50 mg PO BID 05/29/19 06/04/19 History warfarin 4 mg tablet See Rx Instructions .ROUTE .COMPLEX 05/29/19 06/04/19 History warfarin 5 mg tablet See Rx Instructions .ROUTE .COMPLEX 05/29/19 06/04/19 History Allergies Allergy/AdvReac Type Severity Reaction Status Date / Time adhesive tape Allergy ALGY-Rash Verified 06/06/19 21:03 Current Medications Current Medications Generic Name Dose Route Start Last Admin Trade Name Freq PRN Reason Stop Dose Admin Sodium Chloride 1,000 mls @ 100 mls/hr 06/07/19 01:53 06/07/19 08:00 Sodium Chloride 0.9% IV 75 mls/hr .Q10H JACE Infusion Morphine Sulfate 2 mg 06/07/19 01:53 06/07/19 09:50 Morphine IVP 2 mg Q4H PRN Administration SEVERE PAIN PFSH Acute PFSH: Statuses (acute, chronic, etc) shown below reflect problem list status as previously entered and may not be historically accurate Medical History Atrial fibrillation (Acute) History of ablation and Maze procedure, on Betapace, follows with Dr. Mcnair Chronic anticoagulation (Acute) Chronic kidney disease, stage IV (severe) (Acute) Congestive heart failure (Acute) Chronic diastolic Diabetes mellitus type 2, noninsulin dependent (Acute) Hypercholesteremia (Acute) Hypertension (Acute) Hypothyroidism (Acute) Valvular heart disease (Acute) Bioprosthetic valve Surgical History H/O esophagogastroduodenoscopy (Acute) 06/17/2019: Gastric erosions, hiatal hernia History of hernia repair (Acute) History of hysterectomy (Acute) Hx of colonoscopy (Acute) Family History Other CAD (coronary artery disease) Social History Smoking and tobacco status: never smoked Second hand smoke exposure: No Alcohol intake: never Substance/Drug Use: never Household members: spouse Marital status: Vitals/I&O/Wt Last Vital Signs Temp 97.6 F 06/07/19 08:00 Pulse 58 L 06/07/19 08:00 Resp 17 06/07/19 09:50 BP 108/53 06/07/19 08:00 Pulse Ox 96 06/07/19 08:00 06/06/19 06/07/19 06/07/19 22:59 06:59 14:59 Intake Total 1000 / 1000 510 / 1510 818.333 / 818.333 Output Total 1000 / 1000 Balance 1000 / 1000 -490 / 510 818.333 / 818.333 Weight last 48 hrs Weight 224 lb Weight 213 lb Physical Exam Const: COMMON NORMALS: oriented x3, alert and well nourished GENERAL APPEARANCE: cooperative, well developed and well hydrated; not in distress HENMT: MOUTH: lip normal; no other (ulcers or bleeding) TEETH & GINGIVA: no other (bleeding observed and inflammation present) Eye: COMMON NORMALS: conjunctivae normal CONJUNCTIVA: Yes conjunctivae normal SCLERA: sclerae normal Neck/C-Spine: COMMON NORMALS: thyroid normal THYROID: thyroid normal CAROTIDS: Yes normal carotid upstroke (and runoff) Chest: COMMONS NORMALS: inspection of chest normal Resp: COMMON NORMALS: clear to auscultation bilaterally EFFORT & INSPECTION: Yes symmetric chest movement and No uses accessory muscles AUSCULTATION: clear to auscultation bilaterally, no crackles and no wheezes Cardio: COMMON NORMALS: regular rate, regular rhythm, S1 normal heart sound and S2 normal heart sound PALPATION: no heave, no palpable S3 and no thrill RATE: regular rate RHYTHM: regular rhythm HEART SOUNDS: S1 normal, S2 normal and murmur (Short systolic murmur in the left sternal border. No diastolic murmurs. No pericardial rub.) BRUITS: no abdominal aortic bruits PERIPHERAL PULSES: femoral pulses present positive bilateral (Normal), posterior tibial pulses present positive bilateral (Normal) and dorsalis pedis pulses present positive bilateral (Normal) GI: AUSCULTATION: Yes normoactive bowel sounds and No abdominal bruit PALPATION: No tender, No hepatomegaly, No splenomegaly and No mass Back/Pelvis: GENERAL BACK: No swelling and No other (joint deformities) THORACIC SPINE/UPPER BACK: No kyphosis present LUMBAR SPINE/LOWER BACK: No lumbar scoliosis present Extremity: COMMON NORMALS: negative for no clubbing, cyanosis or edema and negative for no pedal edema GENERAL: No cyanosis Neuro: COMMON NORMALS: oriented x3; negative for no focal motor deficits SENSORIUM/ORIENTATION: Yes alert MOTOR EXAM: No tremor Psych: MOOD & AFFECT: Yes other (Normal mood and affect) Skin: COMMON NORMALS: skin turgor normal; negative for no petechiae GENERAL SKIN EXAM: turgor normal, skin not dry and no erythema RASHES: rash noted NAILS: normal, no clubbing, not discolored and no other (cyanosis) Urinary Catheter Management^: Bowman: Cath Placed During This Visit: no Data Labs: Other Labs: Laboratory Tests 05/31/19 06/06/19 06/06/19 12:30 20:40 22:30 Sodium Potassium 3.4 L 6.2 H 5.6 H 06/07/19 08:47 Sodium 132 L Potassium 4.1 The telemetry shows regular rhythm, appears to be sinus with a rate of 60 bpm At the time of admission, the EKG showed sinus bradycardia with a rate of around 34 bpm. She had occasional PVCs. No acute ST-T changes. The chest x-ray revealed borderline cardiac silhouette with no lung infiltrate. A&P Assessment and plan (1) Hyperkalemia: Patient apparently has been having severe hypokalemia prior to this. We had a difficult time in maintaining her potassium level. One time, she was taking almost 200 mEq of potassium a day. Nephrology started her on spironolactone 50 mg p.o. twice daily. Following this, she was admitted to the hospital with hyperkalemia. Subsequently her dose of potassium was cut back. As an outpatient, her potassium dose was gradually increased because of the hypokalemia. Most recently, she was taking 100 mg of potassium. We may need to be more careful with her potassium dose adjustment. Today her potassium level is 4.1. She may be started on potassium 20 mEq p.o. twice daily, starting this evening. We will be closely watching her levels. She may continue the other medications as it is. Status: Acute Code(s): E87.5 - Hyperkalemia (2) Bradycardia: Patient was bradycardic at the time of admission with a potassium of 6.2. According to the , her heart rate was around 38 at home. But it seems to be staying in the 50s and 60s here in the hospital now. Since potassium level is normal, it may be appropriate to put her back on the previous dose of the Betapace Status: Acute Code(s): R00.1 - Bradycardia, unspecified (3) Chronic kidney disease, stage IV (severe): Her kidney function seems to be stable. May continue on the current measures. She is being followed by the nephrology. Status: Acute Code(s): N18.4 - Chronic kidney disease, stage 4 (severe) (4) Atrial fibrillation: Since the patient is heart rhythm has been remaining stable, in normal sinus for the last several years, with the current dose of Betapace, I may continue the same dose. Status: Acute Qualifiers: Atrial fibrillation type: longstanding persistent Qualified Code(s): I48.11 - Longstanding persistent atrial fibrillation Code(s): I48.91 - Unspecified atrial fibrillation (5) Valvular heart disease: Since the valve function appears to be appropriate, I patient may continue on the current management. She has mild pulmonary hypertension by echocardiogram. The most recent PA pressure was 40 mmHg in July 2018 by the echocardiogram. Status: Acute Code(s): I38 - Endocarditis, valve unspecified Consult Attestations Medical Necessity Statement: Patient needs to be closely monitored for the next 24 hours with the rhythm and the potassium levels. If she continues to remain stable, may be discharged home tomorrow. Coding Level of Care Code Acute Light Industrial Supervisor for [facility] Fwd Diagnoses Hyperkalemia E87.5 Bradycardia R00.1 Chronic kidney disease, stage IV (severe) N18.4 Atrial fibrillation I48.11 Atrial fibrillation type: longstanding persistent Valvular heart disease I38
[2019-06-07 11:26] LABS: Glucose Point of Care 125 mg/dL (70-110)
[2019-06-07] MEDS: FUROsemide 40 mg Tablet PO (15:38)
--- NOTE | 2019-06-07 16:13 | PC.CHAP ---
Pastoral Care Encounter/Spiritual Assessment Type of Contact [] Declined adjunct psychology instructor visit [x] Patient/Family/Request visit [] Outpatient visit [] Follow-up visit [] Physician referral [] Code/Alert [] Routine visit [] Staff referral [] Actively dying [] Patient sleeping [] Family support [] [] Out of room [] Palliative care [] [] Receiving care in room [] Pre-surgical visit [] Trauma [] Long length of stay [] ICU visit [] Other: Relational/Emotional Strength [x] Patient feels connected with others/family/visitors/staff [] Distress [] Loneliness/isolation [] Abandonment Spirituality of Patient [x] Person of Danielle [x] Attends Hindu of their Danielle [x] Believes in Prayer [x] Reads Bible or Nondenominational materials [] There are Spiritual issues to be addressed Bulk Plant Supervisor Interventions [x] Prayer [x] Active listening [x] Non-anxious presence [x] Spiritual/emotional support [x] Crisis/trauma care [x] Spiritual counseling [] Bereavement support [] Provided bereavement packet [] Provided Bible/devotional materials [] Provided toy/stuffed animal, coloring book to patient or family member [x] Completed spiritual assessment [] Provided Communion [] Anointing/[place] [] Salvation [] Other: Impact on Illness or Injury [] Angry [] Fearful [] Anxious [] Often cries [] Exhaustion [] Unable to work [] Unable to attend yarsanism [] Unable to walk/stand [] Unable to read [] Unable to drive [] Unable to eat/drink [] Unable to sleep [] Unable to be with family [x] Other: In hospital often. Summary Patient was awake when Bulk Plant Supervisor enter room. Patient was tried and had just sent her home to get rest. Patient is hopeful of going home tomorrow, but is somewhat concerned about the weather. Patient did express that she is tried of being in and out of the hospital, and is praying the doctors can find out what is going on. Patient is not fearful of , just of been sick. Time spent with patient 15 min
--- NOTE | 2019-06-07 16:18 | PC.CHAP ---
Pastoral Care Encounter/Spiritual Assessment Type of Contact [] Declined apprentice lineman third step visit [] Patient/Family/Request visit [] Outpatient visit [] Follow-up visit [] Physician referral [] Code/Alert [] Routine visit [] Staff referral [] Actively dying [] Patient sleeping [] Family support [] [] Out of room [] Palliative care [] [x] Receiving care in room [] Pre-surgical visit [] Trauma [] Long length of stay [x] ICU visit [] Other: Relational/Emotional Strength [] Patient feels connected with others/family/visitors/staff [] Distress [] Loneliness/isolation [] Abandonment Spirituality of Patient [] Person of Danielle [] Attends Mosque of their Danielle [] Believes in Prayer [] Reads Bible or Pentecostal materials [] There are Spiritual issues to be addressed Research Contracts Supervisor Interventions [] Prayer [] Active listening [] Non-anxious presence [] Spiritual/emotional support [] Crisis/trauma care [] Spiritual counseling [] Bereavement support [] Provided bereavement packet [] Provided Bible/devotional materials [] Provided toy/stuffed animal, coloring book to patient or family member [] Completed spiritual assessment [] Provided Communion [] Anointing/[place] [] Salvation [] Other: Impact on Illness or Injury [] Angry [] Fearful [] Anxious [] Often cries [] Exhaustion [] Unable to work [] Unable to attend temple [] Unable to walk/stand [] Unable to read [] Unable to drive [] Unable to eat/drink [] Unable to sleep [] Unable to be with family [] Other: Summary patient was being seen by Doctor Time spent with patient
[2019-06-07 16:20] LABS: Glucose Point of Care 134 mg/dL (70-110)
[2019-06-07] MEDS: spironolactone 25 mg Tablet 50 MG PO (17:04)
--- NOTE | 2019-06-07 19:49 | P.PN_ITS ---
Subjective Subjective: Interval history: Morning patient states that she is doing a bit better, denies chest pain, palpitations, nausea, vomiting, lightheadedness, dizziness, no fevers, no chills Vitals/I&O/Wt Last Vital Signs Temp 98.2 F 06/07/19 16:01 Pulse 65 06/07/19 16:01 Resp 18 06/07/19 16:01 BP 109/53 06/07/19 16:01 Pulse Ox 98 06/07/19 16:01 06/07/19 06/07/19 06/07/19 06:59 14:59 22:59 Intake Total 510 / 1510 1428.333 / 1428.333 360 / 1788.333 Output Total 1000 / 1000 750 / 750 Balance -490 / 510 1428.333 / 1428.333 -390 / 1038.333 Weight last 48 hrs Weight 101.605 kg Weight 96.615 kg Physical Exam Const: COMMON NORMALS: no apparent distress and oriented x3 HENMT: COMMON NORMALS: normocephalic HEAD & SCALP: normocephalic Neck/C-Spine: COMMON NORMALS: no JVD Lymph: LYMPHATIC: no lymphadenopathy noted Resp: COMMON NORMALS: normal respiratory effort, no retractions, no use of accessory muscles and clear to auscultation bilaterally AUSCULTATION: clear to auscultation bilaterally Cardio: COMMON NORMALS: no JVD, regular rate, regular rhythm, S1 normal heart sound and S2 normal heart sound RATE: regular rate RHYTHM: regular rhythm HEART SOUNDS: S1 normal and S2 normal GI: COMMON NORMALS: normal to inspection, nondistended, normoactive bowel sounds and soft to palpation PALPATION: Yes soft : COMMON NORMALS: Yes no CVA tenderness BLADDER/KIDNEY EXAM: Yes no CVA tenderness Back/Pelvis: COMMON NORMALS: no CVA tenderness Extremity: COMMON NORMALS: normal to inspection, full ROM and normal capillary refill Neuro: COMMON NORMALS: oriented x3 and CN's II-XII intact bilaterally Psych: COMMON NORMALS: mental status grossly normal Urinary Catheter Management^: Bowman: Cath Placed During This Visit: no A&P Assessment and plan (1) Bradycardia: -Symptomatic Recurrent bradycardia, heart rate as low as 30s -On sotalol, cardiology on consult Status: Acute Code(s): R00.1 - Bradycardia, unspecified (2) Hyperkalemia: Potassium down to 4.1 Continue to monitor Currently on spironolactone 50 mg p.o. 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, will continue Status: Acute Code(s): E87.5 - Hyperkalemia (3) Atrial fibrillation: Cardiology on consult Status: Acute Qualifiers: Atrial fibrillation type: longstanding persistent Qualified Code(s): I48.11 - Longstanding persistent atrial fibrillation Code(s): I48.91 - Unspecified atrial fibrillation (4) Chronic kidney disease, stage IV (severe): Creatinine today 2.2, which is above baseline for Status: Acute Code(s): N18.4 - Chronic kidney disease, stage 4 (severe) (5) Chronic anticoagulation: Continue anticoagulation, pharmacy dosing Status: Acute Code(s): Z79.01 - [facility] (current) use of anticoagulants (6) Diabetes mellitus type 2, noninsulin dependent: Continue sliding scale Status: Acute Code(s): E11.9 - Type 2 diabetes mellitus without complications Attestations Medical Necessity Statement*: Patient cards continued hospitalization due to hyperkalemia, bradycardia Coding Level of Care Code Acute [employer] Positioner for [facility] Diagnoses Bradycardia R00.1 Hyperkalemia E87.5 Atrial fibrillation I48.11 Atrial fibrillation type: longstanding persistent Chronic kidney disease, stage IV (severe) N18.4 Chronic anticoagulation Z79.01 Diabetes mellitus type 2, noninsulin dependent E11.9
[2019-06-07] MEDS: acetaminophen 325 mg Tablet 650 MG PO (21:24)
[2019-06-07] MEDS: sotalol 80 mg Tablet 120 MG PO (21:25)
[2019-06-07 21:34] LABS: Glucose Point of Care 176 mg/dL (70-110)
[2019-06-07 23:35] LABS: Anion Gap 13.1 (5-19); Blood Urea Nitrogen 28 mg/dL (8-23); Calcium 9.6 mg/Dl (8.8-10.2); Carbon Dioxide 28 mmol/L (22-29); Chloride 90 mmol/L (98-107); Glucose 107 mg/dL (74-106); Potassium 4.1 mmol/L (3.5-5.1); Sodium 127 mmol/L (136-145)
[2019-06-08] VITALS (8 sets, daily range): BP systolic 110–123; BP diastolic 54–62; PULSE 59–86; RESP 19–27; TEMP 36.6–37.5; O2SAT 90–97
--- NOTE | 2019-06-08 00:18 | PC.NURSE ---
about 2129 Jessy BOB was doing vitals and patients oxygen sat was 86%. Patients oxygen cannula was not turned on at the wall. Flow meter was turned on to 2L and patients saturations came up to 92%. Patient states she does not wear oxygen at home. will continue to [facility].
[2019-06-08] MEDS: sodium chloride 0.9% 1,000 ML 75 ML IV (01:44)
[2019-06-08 04:08] LABS: Basophils % 0.2 %; Eosinophils # 0.4 10^3/uL (0.0-0.8); Eosinophils % 4.4 %; Hematocrit 26.9 % (37.0-47.0); Hemoglobin 8.4 g/dL (11.5-15.3); Lymphocytes # 1.2 10^3/uL (0.8-4.8); Lymphocytes % 15.3 %; Mean Corpuscular HGB Conc 31.2 g/dL (30.0-36.0); Mean Corpuscular Volume 99.3 fL (81-99); Mean Platelet Volume 10.3 fL (7.4-10.4); Monocytes # 0.8 10^3/uL (0.2-0.9); Monocytes % 9.3 %; Neutrophils # 5.7 10^3/uL (1.8-7.7); Neutrophils % 70.6 %; Nucleated Red Blood Cells % 0 %; Platelet Count 205 10^3/cmm (130-400); Red Blood Count 2.71 10^6/uL (4.1-5.3); Red Cell Distribution Width 14.6 % (12.1-15.1)
[2019-06-08 04:28] LABS: Anion Gap 12.7 (5-19); Blood Urea Nitrogen 25 mg/dL (8-23); Calcium 9.5 mg/Dl (8.8-10.2); Carbon Dioxide 28 mmol/L (22-29); Chloride 92 mmol/L (98-107); Glucose 99 mg/dL (74-106); Phosphorus 2.6 mg/dL (2.5-4.5); Potassium 3.7 mmol/L (3.5-5.1); Sodium 129 mmol/L (136-145)
[2019-06-08 04:31] LABS: INR 2.07 (0.8-1.2)
[2019-06-08 08:00] LABS: Glucose Point of Care 109 mg/dL (70-110)
[2019-06-08] MEDS: spironolactone 25 mg Tablet 50 MG PO ×2 (08:31→18:21)
[2019-06-08] MEDS: sotalol 80 mg Tablet 120 MG PO ×2 (08:32→21:07)
[2019-06-08] MEDS: levothyroxine 150 mcg Tablet 75 MCG PO (08:32)
[2019-06-08] MEDS: FUROsemide 40 mg Tablet PO (08:32)
--- NOTE | 2019-06-08 09:25 | USCV_ITS ---
Carlie Lori Age: 73 Gender: F : 1945 Exam Date: 06/08/2019 11:15 Ordering Phys: Osmin Fung MD Technologist: Lexii Geller Exam Location: [facility] [place] Indication: Bilateral calf pain HISTORY: Lower extremity pain. PROCEDURES: Comparison: none available. Venous duplex imaging was performed in bilateral lower extremities. The following venous structures were evaluated: common femoral vein, profunda vein, proximal portion of the greater saphenous vein, superficial femoral vein, and the popliteal vein. In addition, the posterior tibial and peroneal trunk were evaluated. Serial compression, augmentation maneuvers, and spectral Doppler flow evaluation were performed. FINDINGS: No evidence of DVT seen in any vessel visualized at this time. Left mid calf veins not well seen. The veins were found to be easily compressible with spontaneous blood flow. Non pulsatile flow pattern. CONCLUSIONS No evidence of DVT in the above-mentioned identifiable veins. Dr Ada Mcnair MD [facility] (Electronically Signed) Final Date: 08 June 2019 14:37 S
--- NOTE | 2019-06-08 10:13 | PM.PN ---
Subjective Subjective: Interval history: Patient felt very short of breath as she was trying to get up and move around today. Her potassium is 3.7 today. Denies any chest pain or palpitation. No fever or chills. No cough. She has the back pain which is chronic. No other specific complaints. Medications: Medication Review Details: She is on Lasix 40 mainly grams twice daily and potassium 20 mg p.o. twice daily. Vitals/I&O/Wt Last Vital Signs Temp 99.5 F 06/08/19 07:19 Pulse 86 06/08/19 09:09 Resp 19 H 06/08/19 07:19 BP 117/58 06/08/19 07:19 Pulse Ox 91 06/08/19 09:09 06/07/19 06/08/19 06/08/19 22:59 06:59 14:59 Intake Total 990 / 2418.333 370 / 2788.333 506.25 / 506.25 Output Total 750 / 750 1800 / 2550 650 / 650 Balance 240 / 1668.333 -1430 / 238.333 -143.75 / -143.75 she is on a positive fluid balance of 1084 mL. The intake output is not strictly charted Weight last 48 hrs Weight 226 lb Weight 224 lb Weight 213 lb Physical Exam Const: COMMON NORMALS: oriented x3, alert and well nourished GENERAL APPEARANCE: cooperative, well developed, anxious (Feels somewhat uncomfortable) and well hydrated HENMT: MOUTH: lip normal; no other (ulcers or bleeding) TEETH & GINGIVA: no other (bleeding observed and inflammation present) Eye: COMMON NORMALS: conjunctivae normal CONJUNCTIVA: Yes conjunctivae normal SCLERA: sclerae normal Neck/C-Spine: COMMON NORMALS: thyroid normal THYROID: thyroid normal CAROTIDS: Yes normal carotid upstroke (and runoff) Chest: COMMONS NORMALS: inspection of chest normal Resp: COMMON NORMALS: clear to auscultation bilaterally EFFORT & INSPECTION: Yes symmetric chest movement and No uses accessory muscles AUSCULTATION: clear to auscultation bilaterally, no crackles and no wheezes Cardio: COMMON NORMALS: regular rate, regular rhythm, S1 normal heart sound and S2 normal heart sound PALPATION: no heave, no palpable S3 and no thrill RATE: regular rate RHYTHM: regular rhythm HEART SOUNDS: S1 normal, S2 normal and murmur (Short systolic murmur in the left sternal border. No diastolic murmurs. No pericardial rub.) BRUITS: no abdominal aortic bruits PERIPHERAL PULSES: femoral pulses present positive bilateral (Normal), posterior tibial pulses present positive bilateral (Normal) and dorsalis pedis pulses present positive bilateral (Normal) GI: AUSCULTATION: Yes normoactive bowel sounds and No abdominal bruit PALPATION: No tender, No hepatomegaly, No splenomegaly and No mass Back/Pelvis: GENERAL BACK: No swelling and No other (joint deformities) THORACIC SPINE/UPPER BACK: No kyphosis present LUMBAR SPINE/LOWER BACK: No lumbar scoliosis present Extremity: COMMON NORMALS: negative for no clubbing, cyanosis or edema and negative for no pedal edema GENERAL: No cyanosis Neuro: COMMON NORMALS: oriented x3; negative for no focal motor deficits SENSORIUM/ORIENTATION: Yes alert MOTOR EXAM: No tremor Psych: MOOD & AFFECT: Yes other (Normal mood and affect) Skin: COMMON NORMALS: skin turgor normal; negative for no petechiae GENERAL SKIN EXAM: turgor normal, skin not dry and no erythema RASHES: rash noted NAILS: normal, no clubbing, not discolored and no other (cyanosis) Urinary Catheter Management^: Bowman: Cath Placed During This Visit: no A&P Assessment and plan (1) Acute on chronic diastolic heart failure: Patient may be carefully treated with diuretics. I may stop the p.o. Lasix and try IV Lasix. Also will increase the dose of potassium to 20 mEq p.o. every 8 hours Status: Acute Code(s): I50.33 - Acute on chronic diastolic (congestive) heart failure (2) Hyperkalemia: Patient apparently has been having severe hypokalemia prior to this. We had a difficult time in maintaining her potassium level. One time, she was taking almost 200 mEq of potassium a day. Nephrology started her on spironolactone 50 mg p.o. twice daily. Following this, she was admitted to the hospital with hyperkalemia. Subsequently her dose of potassium was cut back. As an outpatient, her potassium dose was gradually increased because of the hypokalemia. Most recently, she was taking 100 mg of potassium. Her potassium level is normal. However she is somewhat hyponatremic and also anemic. She has some features of congestive heart failure. I may give her some IV Lasix total of 3 doses. Also may need to consider blood transfusion, if the hemoglobin level drops below 8 .0 Status: Acute Code(s): E87.5 - Hyperkalemia (3) Bradycardia: Patient was bradycardic at the time of admission with a potassium of 6.2. According to the , her heart rate was around 38 at home. But it seems to be staying in the 50s and 60s here in the hospital now. Since potassium level is normal, it may be appropriate to put her back on the previous dose of the Betapace Status: Acute Code(s): R00.1 - Bradycardia, unspecified (4) Chronic kidney disease, stage IV (severe): Her kidney function seems to be stable. May continue on the current measures. She is being followed by the nephrology. The BUN is very low may be because of the fluid overload Status: Acute Code(s): N18.4 - Chronic kidney disease, stage 4 (severe) (5) Atrial fibrillation: Since the patient is heart rhythm has been remaining stable, in normal sinus for the last several years, with the current dose of Betapace, I may continue the same dose. Status: Acute Qualifiers: Atrial fibrillation type: longstanding persistent Qualified Code(s): I48.11 - Longstanding persistent atrial fibrillation Code(s): I48.91 - Unspecified atrial fibrillation (6) Valvular heart disease: Since the valve function appears to be appropriate, I patient may continue on the current management. She has mild pulmonary hypertension by echocardiogram. The most recent PA pressure was 40 mmHg in July 2018 by the echocardiogram. Status: Acute Code(s): I38 - Endocarditis, valve unspecified (7) Anemia: There is a significant drop in the hemoglobin. Etiology is not clear. Patient has a history of gastric ulcers. Need to do stool for occult blood. Also will be closely monitoring H&H Status: Acute Code(s): D64.9 - Anemia, unspecified Attestations Medical Necessity Statement*: Patient requires continued hospital stay for close monitoring and further management Coding Level of Care Code Acute Surveillance Agent for [facility] Fwd Exam Problem Focused Diagnoses Acute on chronic diastolic heart failure I50.33 Hyperkalemia E87.5 Bradycardia R00.1 Chronic kidney disease, stage IV (severe) N18.4 Atrial fibrillation I48.11 Atrial fibrillation type: longstanding persistent Valvular heart disease I38 Anemia D64.9
[2019-06-08 11:51] LABS: Glucose Point of Care 119 mg/dL (70-110)
[2019-06-08] MEDS: warfarin 2 mg Tablet 4 MG PO (14:10)
[2019-06-08] MEDS: FUROsemide 10 mg/mL SDV 4mL 40 MG IVP ×2 (14:16→21:15)
[2019-06-08 15:54] LABS: Glucose Point of Care 140 mg/dL (70-110)
--- NOTE | 2019-06-08 17:22 | PM.PN ---
Subjective Subjective: Interval history: Patient has no complaints this morning, still feeling slightly weak, would like her Bowman catheter removed, no lightheadedness, no dizziness, no chest pain, no palpitations Vitals/I&O/Wt Last Vital Signs Temp 98.9 F 06/08/19 15:42 Pulse 63 06/08/19 15:42 Resp 20 H 06/08/19 15:42 BP 123/59 06/08/19 15:42 Pulse Ox 94 06/08/19 15:42 06/08/19 06/08/19 06/08/19 06:59 14:59 22:59 Intake Total 370 / 2788.333 986.25 / 986.25 Output Total 1800 / 2550 650 / 650 800 / 1450 Balance -1430 / 238.333 336.25 / 336.25 -800 / -463.75 Weight last 48 hrs Weight 102.512 kg Weight 101.605 kg Weight 96.615 kg Physical Exam Const: COMMON NORMALS: no apparent distress and oriented x3 HENMT: COMMON NORMALS: normocephalic HEAD & SCALP: normocephalic Neck/C-Spine: COMMON NORMALS: no JVD Lymph: LYMPHATIC: no lymphadenopathy noted Resp: COMMON NORMALS: normal respiratory effort, no retractions, no use of accessory muscles and clear to auscultation bilaterally AUSCULTATION: clear to auscultation bilaterally Cardio: COMMON NORMALS: no JVD, regular rate, regular rhythm, S1 normal heart sound and S2 normal heart sound RATE: regular rate RHYTHM: regular rhythm HEART SOUNDS: S1 normal and S2 normal GI: COMMON NORMALS: normal to inspection, nondistended, normoactive bowel sounds and soft to palpation PALPATION: Yes soft Neuro: COMMON NORMALS: oriented x3 Urinary Catheter Management^: Bowman: Cath Placed During This Visit: no A&P Assessment and plan (1) Bradycardia: -Symptomatic Recurrent bradycardia, heart rate as low as 30s -Had a couple of bradycardia episodes overnight, asymptomatic -On sotalol, cardiology on consult Status: Acute Code(s): R00.1 - Bradycardia, unspecified (2) Hyperkalemia: Potassium down to 3.7 Continue to monitor Currently on spironolactone 50 mg p.o. 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, will continue Status: Acute Code(s): E87.5 - Hyperkalemia (3) Atrial fibrillation: Cardiology on consult Status: Acute Qualifiers: Atrial fibrillation type: longstanding persistent Qualified Code(s): I48.11 - Longstanding persistent atrial fibrillation Code(s): I48.91 - Unspecified atrial fibrillation (4) Chronic kidney disease, stage IV (severe): Creatinine today 1.8, she is about baseline for her Status: Acute Code(s): N18.4 - Chronic kidney disease, stage 4 (severe) (5) Chronic anticoagulation: Continue anticoagulation, pharmacy dosing Status: Acute Code(s): Z79.01 - [facility] ([facility]) use of anticoagulants (6) Diabetes mellitus type 2, noninsulin dependent: Continue sliding scale Status: Acute Code(s): E11.9 - Type 2 diabetes mellitus without complications Attestations Medical Necessity Statement*: She requires continued hospitalization due to hyperkalemia, bradycardia Coding Level of Care Code Acute 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
[2019-06-08 20:49] LABS: Glucose Point of Care 123 mg/dL (70-110)
[2019-06-09] VITALS (13 sets, daily range): BP systolic 103–141; BP diastolic 50–73; PULSE 58–77; RESP 17–25; TEMP 36.8–37.6; O2SAT 90–97; BMI 40.0
--- NOTE | 2019-06-09 00:08 | PC.NURSE ---
while doing vitals patients oxygen saturation on room air was 85% and maintaining. Patient was placed on 2L via nasal cannula and oxygen saturation came up to 92%. Will continue to monitor.
[2019-06-09 04:20] LABS: Basophils % 0.4 %; Eosinophils # 0.4 10^3/uL (0.0-0.8); Eosinophils % 4.6 %; Hematocrit 23.8 % (37.0-47.0); Hemoglobin 7.6 g/dL (11.5-15.3); Lymphocytes # 1.2 10^3/uL (0.8-4.8); Lymphocytes % 14.9 %; Mean Corpuscular HGB Conc 31.9 g/dL (30.0-36.0); Mean Corpuscular Hemoglobin 30.3 pg (28.0-34.0); Mean Corpuscular Volume 94.8 fL (81-99); Mean Platelet Volume 10.2 fL (7.4-10.4); Monocytes # 0.9 10^3/uL (0.2-0.9); Neutrophils # 5.3 10^3/uL (1.8-7.7); Neutrophils % 67.7 %; Nucleated Red Blood Cells % 0 %; Platelet Count 234 10^3/cmm (130-400); Red Blood Count 2.51 10^6/uL (4.1-5.3); Red Cell Distribution Width 14.5 % (12.1-15.1); White Blood Count 7.8 10^3/uL (4.0-10.0)
[2019-06-09 04:43] LABS: Magnesium 1.7 mg/dL (1.7-2.3); Phosphorus 2.5 mg/dL (2.5-4.5)
--- NOTE | 2019-06-09 05:52 | PC.NURSE ---
Call placed to Dr. Mcnair regarding 3rd dose lasix. Orders to give 3rd dose of lasix as scheduled and orders to Order a BMP Now. Read back verbal order.
[2019-06-09] MEDS: FUROsemide 10 mg/mL SDV 4mL 40 MG IVP ×3 (06:14→18:32)
[2019-06-09 06:48] LABS: Anion Gap 15.6 (5-19); Blood Urea Nitrogen 22 mg/dL (8-23); Calcium 9.9 mg/Dl (8.8-10.2); Carbon Dioxide 26 mmol/L (22-29); Chloride 94 mmol/L (98-107); Glucose 105 mg/dL (74-106); Potassium 3.6 mmol/L (3.5-5.1); Sodium 132 mmol/L (136-145)
[2019-06-09 07:35] LABS: Glucose Point of Care 112 mg/dL (70-110)
[2019-06-09] MEDS: pantoprazole 40 mg SDV IVP ×2 (08:50→21:34)
[2019-06-09] MEDS: levothyroxine 150 mcg Tablet 75 MCG PO (08:51)
[2019-06-09] MEDS: sotalol 80 mg Tablet 120 MG PO (08:51)
[2019-06-09] MEDS: montelukast sodium 10 mg Tablet PO (08:51)
[2019-06-09] MEDS: spironolactone 25 mg Tablet 50 MG PO ×2 (08:51→17:40)
[2019-06-09 09:13] LABS: INR 1.54 (0.8-1.2)
[2019-06-09 09:25] LABS: Ferritin 139 ng/mL (15-150)
[2019-06-09 09:42] LABS: Vitamin B12 260 pg/mL (232-1245)
[2019-06-09 09:49] LABS: Folate Level 11.3 ng/mL (4.8-37.3)
[2019-06-09 11:21] LABS: Glucose Point of Care 136 mg/dL (70-110)
--- NOTE | 2019-06-09 13:35 | PM.PN ---
Subjective Subjective: Interval history: Patient is feeling better today in terms of shortness of breath. She has some stomach discomfort and nausea. She was found to have features of GI bleed. Her hemoglobin dropped further to 7.6. Medications: Reviewed: Yes Vitals/I&O/Wt Last Vital Signs Temp 98.7 F 06/09/19 13:23 Pulse 68 06/09/19 13:23 Resp 23 H 06/09/19 13:23 BP 141/54 06/09/19 13:23 Pulse Ox 91 06/09/19 13:23 06/08/19 06/09/19 06/09/19 22:59 06:59 14:59 Intake Total 240 / 1226.25 250 / 1476.25 590 / 590 Output Total 1400 / 2050 1900 / 3950 200 / 200 Balance -1160 / -823.75 -1650 / -2473.75 390 / 390 Weight last 48 hrs Weight 226 lb Weight 226 lb Physical Exam Const: COMMON NORMALS: oriented x3, alert and well nourished GENERAL APPEARANCE: cooperative, well developed, anxious (Feels somewhat uncomfortable) and well hydrated HENMT: MOUTH: lip normal; no other (ulcers or bleeding) TEETH & GINGIVA: no other (bleeding observed and inflammation present) Eye: COMMON NORMALS: conjunctivae normal CONJUNCTIVA: Yes conjunctivae normal SCLERA: sclerae normal Neck/C-Spine: COMMON NORMALS: thyroid normal THYROID: thyroid normal CAROTIDS: Yes normal carotid upstroke (and runoff) Chest: COMMONS NORMALS: inspection of chest normal Resp: COMMON NORMALS: clear to auscultation bilaterally EFFORT & INSPECTION: Yes symmetric chest movement and No uses accessory muscles AUSCULTATION: clear to auscultation bilaterally, no crackles and no wheezes Cardio: COMMON NORMALS: regular rate, regular rhythm, S1 normal heart sound and S2 normal heart sound PALPATION: no heave, no palpable S3 and no thrill RATE: regular rate RHYTHM: regular rhythm HEART SOUNDS: S1 normal, S2 normal and murmur (Short systolic murmur in the left sternal border. No diastolic murmurs. No pericardial rub.) BRUITS: no abdominal aortic bruits PERIPHERAL PULSES: femoral pulses present positive bilateral (Normal), posterior tibial pulses present positive bilateral (Normal) and dorsalis pedis pulses present positive bilateral (Normal) GI: AUSCULTATION: Yes normoactive bowel sounds and No abdominal bruit PALPATION: No tender, No hepatomegaly, No splenomegaly and No mass Back/Pelvis: GENERAL BACK: No swelling and No other (joint deformities) THORACIC SPINE/UPPER BACK: No kyphosis present LUMBAR SPINE/LOWER BACK: No lumbar scoliosis present Extremity: COMMON NORMALS: negative for no clubbing, cyanosis or edema and negative for no pedal edema GENERAL: No cyanosis Neuro: COMMON NORMALS: oriented x3; negative for no focal motor deficits SENSORIUM/ORIENTATION: Yes alert MOTOR EXAM: No tremor Psych: MOOD & AFFECT: Yes other (Normal mood and affect) Skin: COMMON NORMALS: skin turgor normal; negative for no petechiae GENERAL SKIN EXAM: turgor normal, skin not dry and no erythema RASHES: rash noted NAILS: normal, no clubbing, not discolored and no other (cyanosis) Urinary Catheter Management^: Bowman: Cath Placed During This Visit: no Data Labs: Other Labs: The BUN went up to 57 on 05/31/2019. It gradually came down to 22, today Micro: Micro: Microbiology 06/09/19 09:16 Occult Blood (FIT) - Final Stool A&P Assessment and plan (1) Acute on chronic diastolic heart failure: I may cut back on the dose of Lasix to 40 mg IV every 12 hours. Continue the potassium 20 mg p.o. every 8 hours. Repeat BMP in the morning. Status: Acute Code(s): I50.33 - Acute on chronic diastolic (congestive) heart failure (2) Hyperkalemia: The potassium is staying in the normal range. We will continue on the current dose of potassium. Status: Acute Code(s): E87.5 - Hyperkalemia (3) Bradycardia: Patient was bradycardic at the time of admission with a potassium of 6.2. According to the , her heart rate was around 38 at home. But it seems to be staying in the 50s and 60s here in the hospital now. Since potassium level is normal, it may be appropriate to put her back on the previous dose of the Betapace Status: Acute Code(s): R00.1 - Bradycardia, unspecified (4) Chronic kidney disease, stage IV (severe): Her kidney function seems to be stable. May continue on the current measures. She is being followed by the nephrology. The BUN is back to normal today Status: Acute Code(s): N18.4 - Chronic kidney disease, stage 4 (severe) (5) Atrial fibrillation: Since the patient is heart rhythm has been remaining stable, in normal sinus for the last several years, with the current dose of Betapace, I may continue the same dose. Status: Acute Qualifiers: Atrial fibrillation type: longstanding persistent Qualified Code(s): I48.11 - Longstanding persistent atrial fibrillation Code(s): I48.91 - Unspecified atrial fibrillation (6) Valvular heart disease: Since the valve function appears to be appropriate, I patient may continue on the current management. She has mild pulmonary hypertension by echocardiogram. The most recent PA pressure was 40 mmHg in July 2018 by the echocardiogram. 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 Patient had some tarry stools today. She is going to have blood transfusion. Management as per the primary. I may hold off on the Coumadin for the time being. Status: Acute Code(s): D64.9 - Anemia, unspecified Attestations Medical Necessity Statement*: Patient requires continued hospital stay for close monitoring and further management Coding Level of Care Code Acute Wellness Guide for [facility] Fwd Exam Problem Focused Diagnoses Acute on chronic diastolic heart failure I50.33 Hyperkalemia E87.5 Bradycardia R00.1 Chronic kidney disease, stage IV (severe) N18.4 Atrial fibrillation I48.11 Atrial fibrillation type: longstanding persistent Valvular heart disease I38 Anemia D64.9
--- NOTE | 2019-06-09 15:26 | PM.PN ---
Subjective Subjective: Interval history: Patient states that she feels a bit weak today, with a bit weak with ambulation, had a black tarry stool this morning Vitals/I&O/Wt Last Vital Signs Temp 99.4 F 06/09/19 14:54 Pulse 63 06/09/19 14:54 Resp 23 H 06/09/19 14:54 BP 122/63 06/09/19 14:54 Pulse Ox 94 06/09/19 14:54 06/09/19 06/09/19 06/09/19 06:59 14:59 22:59 Intake Total 250 / 1476.25 590 / 590 Output Total 1900 / 3950 200 / 200 Balance -1650 / -2473.75 390 / 390 Weight last 48 hrs Weight 102.512 kg Weight 102.512 kg Physical Exam Const: COMMON NORMALS: no apparent distress and oriented x3 HENMT: COMMON NORMALS: normocephalic HEAD & SCALP: normocephalic Neck/C-Spine: COMMON NORMALS: no JVD Lymph: LYMPHATIC: no lymphadenopathy noted Resp: COMMON NORMALS: normal respiratory effort, no retractions, no use of accessory muscles and clear to auscultation bilaterally AUSCULTATION: clear to auscultation bilaterally Cardio: COMMON NORMALS: no JVD, regular rate, regular rhythm, S1 normal heart sound and S2 normal heart sound RATE: regular rate RHYTHM: regular rhythm HEART SOUNDS: S1 normal and S2 normal GI: COMMON NORMALS: normal to inspection, nondistended, normoactive bowel sounds and soft to palpation PALPATION: Yes soft : COMMON NORMALS: Yes no CVA tenderness BLADDER/KIDNEY EXAM: Yes no CVA tenderness Back/Pelvis: COMMON NORMALS: no CVA tenderness Extremity: COMMON NORMALS: normal to inspection, full ROM and normal capillary refill Neuro: COMMON NORMALS: oriented x3 Urinary Catheter Management^: Bowman: Cath Placed During This Visit: no Data Micro: Micro: Microbiology 06/09/19 09:16 Occult Blood (FIT) - Final Stool A&P Assessment and plan (1) Bradycardia: -Symptomatic Recurrent bradycardia, heart rate as low as 30s -Had a couple of bradycardia episodes overnight, asymptomatic -On sotalol, cardiology on consult Status: Acute Code(s): R00.1 - Bradycardia, unspecified (2) Hyperkalemia: Potassium down to 3.6 Continue to monitor Currently on spironolactone 50 mg p.o. 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, will continue Status: Acute Code(s): E87.5 - Hyperkalemia (3) Atrial fibrillation: Cardiology on consult Status: Acute Qualifiers: Atrial fibrillation type: longstanding persistent Qualified Code(s): I48.11 - Longstanding persistent atrial fibrillation Code(s): I48.91 - Unspecified atrial fibrillation (4) Chronic kidney disease, stage IV (severe): Creatinine today 1.6, she is about baseline for her Status: Acute Code(s): N18.4 - Chronic kidney disease, stage 4 (severe) (5) Chronic anticoagulation: Hold Coumadin as above Status: Acute Code(s): Z79.01 - senior living (current) use of anticoagulants (6) Diabetes mellitus type 2, noninsulin dependent: Continue sliding scale Status: Acute Code(s): E11.9 - Type 2 diabetes mellitus without complications (7) GI bleed: -This morning patient had black tarry stool, hemoglobin dropped to 7.6, no hemodynamic compromise -Patient had an EGD a few days ago which showed gastritis, she had a colonoscopy this year which was unremarkable -Patient is on Coumadin for A. fib -INR 1.54 Plan: -After an extensive discussion about the risks and benefits of Coumadin, risk of continued including life-threatening bleeding, risk of holding stroke. Currently I advised patient that her risk of life-threatening bleeding is more significant, but she still has a risk of stroke. Patient voiced understanding, all questions answered, patient is agrees to hold Coumadin -After shared decision-making, patient fevers to hold Coumadin as outpatient, possibly starting a baby aspirin, however this is a shared decision making with Dr. Mcnair, I will also let Dr. Mcnair weigh-in -Continue Protonix, continue Carafate -We will transfuse 1 unit PRBC -Monitor hemoglobin Status: Acute Code(s): K92.2 - Gastrointestinal hemorrhage, unspecified Additional A&P Information Additional A&P Information: Observation admission for now IV fluids Serial lab Cardiology consultation Discussed resumption of potassium, Aldactone and sotalol with cardiology Telemetry monitoring Hold Coumadin today restart at a lower dose No medications otherwise do need to be further clarified and resumed as appropriate Corrective dose insulin Current supratherapeutic INR sufficient for DVT prophylaxis Supportive care otherwise Plans discussed with patient and she was given an opportunity to ask questions Attestations Medical Necessity Statement*: Patient requires continued hospitalization, atrial fibrillation, GI bleed Coding Level of Care Code Acute 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
[2019-06-09 16:45] LABS: Glucose Point of Care 106 mg/dL (70-110)
[2019-06-09] MEDS: sucralfate 1 gm Tablet PO (17:40)
--- NOTE | 2019-06-09 18:40 | PC.NURSE ---
PATIENT RECEIVED 1 UNIT PRBC, PATIENT TOLERATED WELL. TEMPERATURE NOTED TO BE MILDY ELEVATED, BUT STABLE DURING TRANSFUSION (SEE TAR DOCUMENTATION) TWO HOURS POST TRANSFUSION, PATIENT NOTED TO BE INCREASINGLY SHORT OF BREATH. UPON AUSCULTATION, BILATERAL UPPER LOBES AND RIGHT MIDDLE LOBE NOTED TO HAVE FINE CRACKLES UPON INSPIRATION. DR. AVILA NOTIFIED. ORDERED TO GIVE 2230 DOSE OF LASIX NOW AND ORDER A ONE TIME ALBUTEROL NEBULIZED TREATMENT. DO NOT GIVE LASIX IV LATER AT SCHEDULED TIME. WILL CONTINUE TO ASSESS AND MONITOR PATIENT. OXYGEN SATURATIONS STILL NOTED TO BE 92-94% ON ROOM AIR.
[2019-06-09 20:30] LABS: Glucose Point of Care 173 mg/dL (70-110)
[2019-06-09] MEDS: sotalol 80 mg Tablet 160 MG PO (21:34)
[2019-06-10] VITALS: BP 114/57; PULSE 71; RESP 20; TEMP 37.6; O2SAT 90
[2019-06-10 03:33] LABS: Basophils # 0.1 10^3/uL (0.0-0.1); Basophils % 0.5 %; Eosinophils # 0.4 10^3/uL (0.0-0.8); Eosinophils % 4.5 %; Hematocrit 26.7 % (37.0-47.0); Hemoglobin 8.7 g/dL (11.5-15.3); Lymphocytes # 1.2 10^3/uL (0.8-4.8); Lymphocytes % 12.5 %; Mean Corpuscular HGB Conc 32.6 g/dL (30.0-36.0); Mean Corpuscular Hemoglobin 30.3 pg (28.0-34.0); Mean Platelet Volume 10.2 fL (7.4-10.4); Monocytes # 1.1 10^3/uL (0.2-0.9); Monocytes % 12.3 %; Neutrophils # 6.4 10^3/uL (1.8-7.7); Neutrophils % 69.7 %; Nucleated Red Blood Cells % 0 %; Platelet Count 237 10^3/cmm (130-400); Red Blood Count 2.87 10^6/uL (4.1-5.3); Red Cell Distribution Width 15.2 % (12.1-15.1); White Blood Count 9.2 10^3/uL (4.0-10.0)
[2019-06-10 04:00] VITALS: BP 123/48; PULSE 73; RESP 18; TEMP 37; O2SAT 93
[2019-06-10 04:06] LABS: Alanine Aminotransferase 14 U/L (0-33); Albumin Level 3.2 g/dL (3.5-5.2); Alkaline Phosphatase 92 IU/L (35-105); Anion Gap 15.8 (5-19); Aspartate Amino Transferase 13 U/L (0-32); Blood Urea Nitrogen 21 mg/dL (8-23); Calcium 10.1 mg/Dl (8.8-10.2); Carbon Dioxide 25 mmol/L (22-29); Chloride 94 mmol/L (98-107); Globulin 2.8 g/dL (1.3-4.6); Glucose 114 mg/dL (74-106); Magnesium 1.7 mg/dL (1.7-2.3); Phosphorus 2.5 mg/dL (2.5-4.5); Potassium 3.8 mmol/L (3.5-5.1); Sodium 131 mmol/L (136-145); Total Bilirubin 0.9 mg/dL (0.15-1.2)
[2019-06-10] MEDS: sucralfate 1 gm Tablet PO (06:13)
[2019-06-10 07:32] VITALS: BP 104/53; PULSE 59; RESP 20; TEMP 36.9; O2SAT 92
[2019-06-10 07:46] LABS: Glucose Point of Care 116 mg/dL (70-110)
[2019-06-10] MEDS: levothyroxine 150 mcg Tablet 75 MCG PO (08:23)
[2019-06-10] MEDS: spironolactone 25 mg Tablet 50 MG PO (08:24)
[2019-06-10] MEDS: pantoprazole 40 mg SDV IVP (08:24)
[2019-06-10] MEDS: montelukast sodium 10 mg Tablet PO (08:24)
[2019-06-10] MEDS: sotalol 80 mg Tablet 160 MG PO (08:31)
[2019-06-10 11:17] VITALS: BP 126/55; PULSE 59; RESP 23; TEMP 36.7; O2SAT 91
[2019-06-10 11:29] LABS: Glucose Point of Care 128 mg/dL (70-110)
--- NOTE | 2019-06-10 13:03 | PM.PN ---
Subjective Subjective: Interval history: Patient is feeling okay. She had some nosebleed this morning. She also had oxygen saturation dropping in the night into the 80s. She was placed on oxygen at that time. She is wondering whether she can have oxygen at home. Medications: Reviewed: Yes Medication Review Details: She is on Lasix 40 mainly grams twice daily and potassium 20 mg p.o. twice daily. Vitals/I&O/Wt Last Vital Signs Temp 98.1 F 06/10/19 11:17 Pulse 59 L 06/10/19 11:17 Resp 23 H 06/10/19 11:17 BP 126/55 06/10/19 11:17 Pulse Ox 91 06/10/19 11:17 06/09/19 06/10/19 06/10/19 22:59 06:59 14:59 Intake Total 590 / 1180 360 / 1540 600 / 600 Output Total 1000 / 1200 700 / 1900 Balance -410 / -20 -340 / -360 599 / 599 Weight last 48 hrs Weight 227 lb Weight 227 lb Weight 226 lb Physical Exam Const: COMMON NORMALS: oriented x3, alert and well nourished GENERAL APPEARANCE: cooperative, well developed and well hydrated; not in distress HENMT: MOUTH: lip normal; no other (ulcers or bleeding) TEETH & GINGIVA: no other (bleeding observed and inflammation present) Eye: COMMON NORMALS: conjunctivae normal CONJUNCTIVA: Yes conjunctivae normal SCLERA: sclerae normal Neck/C-Spine: COMMON NORMALS: thyroid normal THYROID: thyroid normal CAROTIDS: Yes normal carotid upstroke (and runoff) Chest: COMMONS NORMALS: inspection of chest normal Resp: COMMON NORMALS: clear to auscultation bilaterally EFFORT & INSPECTION: Yes symmetric chest movement and No uses accessory muscles AUSCULTATION: clear to auscultation bilaterally, no crackles and no wheezes Cardio: COMMON NORMALS: regular rate, regular rhythm, S1 normal heart sound and S2 normal heart sound PALPATION: no heave, no palpable S3 and no thrill RATE: regular rate RHYTHM: regular rhythm HEART SOUNDS: S1 normal, S2 normal and murmur (Short systolic murmur in the left sternal border. No diastolic murmurs. No pericardial rub.) BRUITS: no abdominal aortic bruits PERIPHERAL PULSES: femoral pulses present positive bilateral (Normal), posterior tibial pulses present positive bilateral (Normal) and dorsalis pedis pulses present positive bilateral (Normal) GI: AUSCULTATION: Yes normoactive bowel sounds and No abdominal bruit PALPATION: No tender, No hepatomegaly, No splenomegaly and No mass Back/Pelvis: GENERAL BACK: No swelling and No other (joint deformities) THORACIC SPINE/UPPER BACK: No kyphosis present LUMBAR SPINE/LOWER BACK: No lumbar scoliosis present Extremity: COMMON NORMALS: negative for no clubbing, cyanosis or edema and negative for no pedal edema GENERAL: No cyanosis Neuro: COMMON NORMALS: oriented x3; negative for no focal motor deficits SENSORIUM/ORIENTATION: Yes alert MOTOR EXAM: No tremor Psych: MOOD & AFFECT: Yes other (Normal mood and affect) Skin: COMMON NORMALS: skin turgor normal; negative for no petechiae GENERAL SKIN EXAM: turgor normal, skin not dry and no erythema RASHES: rash noted NAILS: normal, no clubbing, not discolored and no other (cyanosis) Urinary Catheter Management^: Bowman: Cath Placed During This Visit: no Data : 06/10/19 02:58 06/10/19 02:58 Micro: Microbiology 06/09/19 09:16 Occult Blood (FIT) - Final Stool A&P Assessment and plan (1) Acute on chronic diastolic heart failure: I may cut back on the dose of Lasix to 40 mg IV every 12 hours. Continue the potassium 20 mg p.o. every 8 hours. Repeat BMP in the morning. Status: Acute Code(s): I50.33 - Acute on chronic diastolic (congestive) heart failure (2) Hyperkalemia: The potassium is staying in the normal range. We will continue on the current dose of potassium. Status: Acute Code(s): E87.5 - Hyperkalemia (3) Bradycardia: Patient was bradycardic at the time of admission with a potassium of 6.2. According to the , her heart rate was around 38 at home. But it seems to be staying in the 50s and 60s here in the hospital now. Since potassium level is normal, it may be appropriate to put her back on the previous dose of the Betapace Status: Acute Code(s): R00.1 - Bradycardia, unspecified (4) Chronic kidney disease, stage IV (severe): Her kidney function seems to be stable. May continue on the current measures. She is being followed by the nephrology. The BUN is back to normal today Status: Acute Code(s): N18.4 - Chronic kidney disease, stage 4 (severe) (5) Atrial fibrillation: Since the patient is heart rhythm has been remaining stable, in normal sinus for the last several years, with the current dose of Betapace, I may continue the same dose. Patient may stay off the Coumadin possibly for a month and then restart? Status: Acute Qualifiers: Atrial fibrillation type: longstanding persistent Qualified Code(s): I48.11 - Longstanding persistent atrial fibrillation Code(s): I48.91 - Unspecified atrial fibrillation (6) Valvular heart disease: Since the valve function appears to be appropriate, I patient may continue on the current management. She has mild pulmonary hypertension by echocardiogram. The most recent PA pressure was 40 mmHg in July 2018 by the echocardiogram. Status: Acute Code(s): I38 - Endocarditis, valve unspecified (7) Anemia: Hemoglobin seems to be stable. May need to have follow-up evaluation with the primary care. Consider starting her on hematinics Status: Acute Code(s): D64.9 - Anemia, unspecified Additional A&P Information Additional A&P Information: Because of the nighttime hypoxia, patient may benefit from sleep study. But the patient is vehemently opposed to use any kind of mask because of the difficulty in wearing it. She is willing to use oxygen by nasal cannula. 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
--- NOTE | 2019-06-10 13:27 | PC.NURSE ---
Patient walking in [address] with family at this time. Patient is steady with walker in place. Patient reports she is ready to go home.
--- NOTE | 2019-06-10 14:57 | P.DS_ITS ---
Discharge Providers Date of Admission: 06/08/19 15:50 Date of Discharge: 06/10/19 Attending Provider at Admission: Anastasiia Rubin MD Attending Provider at Discharge: Keshav Quintero MD Primary Care Provider: Pankaj Dela Cruz MD Diagnoses at Discharge Discharge Diagnosis (1) Acute on chronic diastolic heart failure: Status: Acute Problem details: Improved compensation (2) Hyperkalemia: Status: Acute Problem details: Stable currently (3) Bradycardia: Status: Acute Problem details: Heart rate controlled (4) Chronic kidney disease, stage IV (severe): Status: Acute Problem details: Stable (5) Atrial fibrillation: Status: Acute Problem details: History of ablation and Maze procedure, on Betapace, follows with Dr. Mcnair. 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 The most recent echocardiogram was done in July 2018. The results are as follows. Normal left ventricular size and systolic function, EF 58 %. Abnormal (paradoxical) septal motion consistent with postoperative status. The bioprosthetic valve the aortic and mitral position appears to be well-seated with possibly normal leaflet motion. Biatrial enlargement, left worse than the right. [id number] tricuspid valve regurgitation. Moderate pulmonary hypertension with an estimated pulmonary artery mean pressure of 40 mmHg. The bioprosthetic valve the aortic and mitral position appears to be well-seated with no significant stenosis. There is no pericardial effusion. There are no intracardiac masses. (7) Anemia: Status: Acute Problem details: Concern of GI bleeding. Protonix 40 mg twice daily. Received 1 unit of blood. Repeat CBC as an outpatient. Stop Coumadin. Consider initiation of low-dose aspirin, on follow-up with primary Reason for Visit Reason for Visit: Reason For Visit: LOW HR Hospital Course Hospital Course: Patient initially presented to the hospital with low heart rate. She was found to be hyperkalemic. She was initially hydrated. While in the hospital there was some concern she might have GI bleed although stool was heme-negative. Her Coumadin was stopped. She was given 1 unit of blood secondary to low hemoglobin. Potassium eventually became normal and was 3.8 at discharge after being restarted on her home dose. This will need to be monitored closely as no overall changes to her regimen were made other than Actos been discontinued secondary to some fluid overload noted on admission as well. Physical Exam Narrative: EXAM NARRATIVE: No apparent distress Cardiovascular irregular, irregular Lungs clear Extremities no cyanosis clubbing or edema Urinary Catheter Management^: Bowman: Cath Placed During This Visit: no Discharge Data Data Completed and Pending: Completed Studies During Hospitalization Category Date Time Status XR chest 1V ramana ble [id number] Stat Exams 06/06/19 20:35 [place] [id number] Routin e Ultrasound 06/08/19 09:25 Completed Pending at discharge Category Date Time Status Comprehensive Met abolic Panel AM [place] BS Lab 06/11/19 04:00 Ordered Comprehensive Met abolic Panel AM [place] BS Lab 06/12/19 04:00 Ordered Labs from last 24 hours 06/10/19 06/10/19 06/10/19 11:15 07:30 02:58 WBC RBC Hgb Hct MCV MCH MCHC RDW Plt Count MPV Neut % (Auto) Lymph % (Auto) [place] % (Auto) Eos % (Auto) Baso % (Auto) Neut # (Auto) Lymph # (Auto) Hamilton # (Auto) Eos # (Auto) Baso # (Auto) Nucleated RBC % (a uto) Nucleated RBCs # Sodium 131 L Potassium 3.8 Chloride 94 L Carbon Dioxide 25 Anion Gap 15.8 BUN 21 Creatinine 1.6 H Glucose 114 H POC Glucose 128 116 Calcium 10.1 Phosphorus 2.5 Magnesium 1.7 Total Bilirubin 0.9 AST 13 ALT 14 Alkaline Phosphata se 92 Total Protein 6.0 L Albumin 3.2 L Globulin 2.8 Crossmatch 06/10/19 06/09/19 06/09/19 02:58 20:19 16:38 WBC 9.2 RBC 2.87 L Hgb 8.7 L Hct 26.7 L MCV 93.0 MCH 30.3 MCHC 32.6 RDW 15.2 H Plt Count 237 MPV 10.2 Neut % (Auto) 69.7 Lymph % (Auto) 12.5 Hamilton % (Auto) 12.3 Eos % (Auto) 4.5 Baso % (Auto) 0.5 Neut # (Auto) 6.4 Lymph # (Auto) 1.2 Hamilton # (Auto) 1.1 H Eos # (Auto) 0.4 Baso # (Auto) 0.1 Nucleated RBC % (a uto) 0 Nucleated RBCs # 0.0 Sodium Potassium Chloride Carbon Dioxide Anion Gap BUN Creatinine Glucose POC Glucose 173 106 Calcium Phosphorus Magnesium Total Bilirubin AST ALT Alkaline Phosphata se Total Protein Albumin Globulin Crossmatch 06/09/19 08:46 WBC RBC Hgb Hct MCV MCH MCHC RDW Plt Count MPV Neut % (Auto) Lymph % (Auto) Hamilton % (Auto) Eos % (Auto) Baso % (Auto) Neut # (Auto) Lymph # (Auto) Hamilton # (Auto) Eos # (Auto) Baso # (Auto) Nucleated RBC % (a uto) Nucleated RBCs # Sodium Potassium Chloride Carbon Dioxide Anion Gap BUN Creatinine Glucose POC Glucose Calcium Phosphorus Magnesium Total Bilirubin AST ALT Alkaline Phosphata se Total Protein Albumin Globulin Crossmatch See Detail Vitals: Last Vital Signs Temp 98.1 F 06/10/19 11:17 Pulse 59 L 06/10/19 11:17 Resp 23 H 06/10/19 11:17 BP 126/55 06/10/19 11:17 Pulse Ox 91 06/10/19 11:17 Discharge Plan Discharge Patient Disposition: Home, Self-Care Condition: Stable Prescriptions: Continued sotalol 160 mg tablet 160 mg PO BID RF: 0 montelukast [Singulair] 10 mg tablet 10 mg PO DAILY RF: 0 magnesium 250 mg tablet 250 mg PO BID RF: 0 levothyroxine 75 mcg capsule 75 mcg PO DAILY RF: 0 spironolactone 50 mg tablet 50 mg PO BID RF: 0 furosemide 40 mg tablet 40 mg PO BID RF: 0 potassium chloride 20 mEq tablet extended release 20 meq PO BID RF: 0 sucralfate [Carafate] 1 gram tablet 1 gm PO Q6H 28 Days Qty: 112 RF: 0 pantoprazole [Protonix] 40 mg tablet,delayed release (DR/EC) 40 mg PO BID Qty: 60 RF: 0 Discontinued warfarin 5 mg tablet See Rx Instructions .ROUTE .COMPLEX RF: 0 warfarin 4 mg tablet See Rx Instructions .ROUTE .COMPLEX RF: 0 pioglitazone [Actos] 30 mg tablet 30 mg PO DAILY RF: 0 Referrals: Ada Mcnair MD [Physician] - 1 week Pankaj Dela Cruz MD [Primary Care Provider] - 1-3 days Discharge Diet: Diabetic Discharge Activity: Increase activity as tolerated Activity Restrictions/Additional Instructions: Take all medicine as prescribed. Hold Coumadin until further evaluation by Dr. Dela Cruz. Will need CBC and BMP on follow-up with Dr. Dela Cruz. This should occur in 3 to 4 days. 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
[2019-06-10 15:47] VITALS: BP 126/56; PULSE 77; RESP 23; TEMP 36.7; O2SAT 91
== END 2019-06-10 16:18 | disposition home or self-care (01) | DRG 291 ==
LOC: ER 20:59 → CSU 06-07 00:21
PROVIDERS: Family Medicine; Internal Medicine Cardiovascular Disease; Admitting Provider Hospitalist; Emergency Provider Emergency Medicine; Family Provider Family Medicine; PCP Family Medicine; Visit Provider Internal Medicine
DX: I13.0 Hypertensive heart and chronic kidney disease with heart failure and stage 1 through stage 4 chronic kidney disease, or unspecified chronic kidney disease (principal); I50.33 Acute on chronic diastolic (congestive) heart failure; N18.4 Chronic kidney disease, stage 4 (severe); I48.11 Longstanding persistent atrial fibrillation; D64.9 Anemia, unspecified; E03.9 Hypothyroidism, unspecified; E11.22 Type 2 diabetes mellitus with diabetic chronic kidney disease; E87.5 Hyperkalemia; R00.1 Bradycardia, unspecified; Z79.01 Long term (current) use of anticoagulants; Z95.2 Presence of prosthetic heart valve
CPT/HCPCS: 12345; 36415; 36416; 36430; 51702; 71045; 80048; 80053; 80307; 81003; 82274; 82607; 82728; 82746; 82962; 83735; 83880; 84100; 84484; 85025; 85610; 85730; 86850; 86900; 93005; 93970; 94640; 96360; 96372; 96374; 96375; 97110; 97116; 97161; 97165; 97530; 97535; 99283; C9113; G0378; J0461; J0610; J1815; J1940; J2270; J7030; J7611; P9016

== ENCOUNTER → 2019-06-25 10:14 | Outpatient (BNVA) | payer MEDICARE, OTHER, SELFPAY | PROVIDERS: Family Provider Family Medicine; PCP Family Medicine; Visit Provider Internal Medicine Cardiovascular Disease | DX: I13.0 Hypertensive heart and chronic kidney disease with heart failure and stage 1 through stage 4 chronic kidney disease, or unspecified chronic kidney disease (principal); N18.4 Chronic kidney disease, stage 4 (severe); I50.33 Acute on chronic diastolic (congestive) heart failure; R00.1 Bradycardia, unspecified; E87.5 Hyperkalemia; I48.11 Longstanding persistent atrial fibrillation; D50.8 Other iron deficiency anemias; I38 Endocarditis, valve unspecified | CPT/HCPCS: 80048 ==

== ENCOUNTER 2019-07-05 11:06 | Outpatient (CLI) | payer MEDICARE, OTHER, SELFPAY ==
--- NOTE | 2019-07-05 | XR_ITS ---
WS: [id number] Left foot, 3 views, 07/05/2019 Clinical Data: FOOT PAIN LEFT Comparison: Left foot, 11/11/2013. Findings: No fractures or dislocations are seen. No bone destruction or erosion is noted. The joint spaces and soft tissues are normal. There is a small Achilles spur. XR/XR foot LT min 3V* [id number] Impression: Negative left foot.
== END 2019-07-05 11:07 | disposition home or self-care (01) ==
LOC: RADOUTREAD 12:35
PROVIDERS: Family Provider Family Medicine; PCP Family Medicine; Visit Provider Nurse Practitioner Family
DX: Z76.89 Persons encountering health services in other specified circumstances (principal)

== ENCOUNTER → 2019-07-25 12:11 | Outpatient (BNVA) | payer MEDICARE, OTHER, SELFPAY | PROVIDERS: Family Provider Family Medicine; PCP Family Medicine; Visit Provider Internal Medicine Cardiovascular Disease | DX: E87.5 Hyperkalemia (principal); Z79.01 Long term (current) use of anticoagulants; R06.02 Shortness of breath; I13.0 Hypertensive heart and chronic kidney disease with heart failure and stage 1 through stage 4 chronic kidney disease, or unspecified chronic kidney disease; I50.33 Acute on chronic diastolic (congestive) heart failure; N18.4 Chronic kidney disease, stage 4 (severe); R00.1 Bradycardia, unspecified; D50.8 Other iron deficiency anemias; I48.11 Longstanding persistent atrial fibrillation | CPT/HCPCS: 80048; 85025 ==

== ENCOUNTER 2019-08-15 09:15 | Outpatient (CLI) | payer MEDICARE, OTHER, SELFPAY ==
--- NOTE | 2019-08-15 | US_ITS ---
WS: [id number] Left Lower extremity venous Doppler, 08/15/2019 Clinical Data: EDEMA OF LEFT FOOT Comparison: None. Findings: The veins of the left lower extremity were examined. The veins examined where the posterior tibial vein, popliteal vein, superficial femoral vein, common femoral vein and greater saphenous vein. There was normal venous flow throughout. There is no evidence of deep venous thrombosis or obstructio n. Normal augmentation and compression occurred. US/ROR venous duplex LE Impression: Negative left lower extremity venous Doppler ultrasound.
== END 2019-08-15 09:16 | disposition home or self-care (01) ==
LOC: RADOUTREAD 14:59
PROVIDERS: Family Provider Family Medicine; PCP Family Medicine; Visit Provider Family Medicine
DX: Z01.89 Encounter for other specified special examinations (principal)

== ENCOUNTER → 2020-02-04 13:45 | Outpatient (BNVA) | payer MEDICARE, OTHER, SELFPAY | PROVIDERS: Family Provider Family Medicine; PCP Family Medicine; Visit Provider Orthopaedic Surgery | DX: M25.511 Pain in right shoulder (principal) | CPT/HCPCS: 73030 ==

== ENCOUNTER 2020-02-05 14:45 | Outpatient (CLI) | payer MEDICARE, OTHER, SELFPAY ==
--- NOTE | 2020-02-05 15:00 | USCV_ITS ---
Lori Sexton Age: 74 Gender: F : 1945 Exam Date: 02/05/2020 14:47 Ordering Phys: Ada Mcnair MD ([email or web address]) Technologist: Trevin Mixon Exam Location: [facility] [place] Indication: BILATERAL CAROTID STENOSIS Risk Factors: Previous Vascular Surgery: Right Brachial BP: / Left Brachial BP: / Right Left Velocity (cm/s) Spectral Plaque Velocity (cm/s) Spectral Plaque Syst/Diast Broadening Syst/Diast Broadening 92.60/ 11.00 Prox CCA 99.10 / 19.70 78.30/ 8.80 Mid CCA 68.40 / 14.50 71.70/ 12.10 Distal CCA 67.60 / 13.20 132.30/16.50 Prox ICA 68.40 / 16.30 111.40/11.00 Mid ICA 94.00 / 25.60 77.90/ 19.60 Distal ICA 98.70 / 24.10 101.70 ECA 123.50 1.42 ICA/CCA 1.37 Antegrade Vertebral Antegrade 48.50/ 11.00 cm/s 38.10/ 10.10 cm/s Tri Subclavian Tri 101.8 140.0 0 0 CONCLUSIONS Right ICA stenosis 50-69%. Moderate atheromatous plaque right carotid bulb/ICA. Left ICA stenosis <50%. Mild atheromatous plaque left carotid bulb/ICA. Normal antegrade Doppler flow noted in the right vertebral artery. Normal antegrade Doppler flow noted in the left vertebral artery. Multinodular thyroid goiter with increased vascularity is incidentally visualized. Giuseppe Oliveira MD (Electronically Signed) Final Date: 05 February 2020 17:12 S
== END 2020-02-05 14:46 | disposition home or self-care (01) ==
LOC: RAD 14:48
PROVIDERS: PCP Family Medicine; Visit Provider Internal Medicine Cardiovascular Disease
DX: I65.23 Occlusion and stenosis of bilateral carotid arteries (principal)
CPT/HCPCS: 93880

== ENCOUNTER → 2020-09-24 10:39 | Outpatient (BNVA) | payer MEDICARE, SELFPAY | PROVIDERS: PCP Family Medicine; Visit Provider Internal Medicine Cardiovascular Disease | DX: I48.11 Longstanding persistent atrial fibrillation (principal) | CPT/HCPCS: 85610 ==

== ENCOUNTER → 2021-01-13 10:58 | Outpatient (BNVA) | payer MEDICARE, SELFPAY | PROVIDERS: PCP Family Medicine; Visit Provider Internal Medicine Cardiovascular Disease | DX: I13.0 Hypertensive heart and chronic kidney disease with heart failure and stage 1 through stage 4 chronic kidney disease, or unspecified chronic kidney disease (principal); I50.33 Acute on chronic diastolic (congestive) heart failure; E78.5 Hyperlipidemia, unspecified; E78.00 Pure hypercholesterolemia, unspecified; R06.02 Shortness of breath; R07.9 Chest pain, unspecified; I48.11 Longstanding persistent atrial fibrillation; Z79.899 Other long term (current) drug therapy; I38 Endocarditis, valve unspecified; R00.1 Bradycardia, unspecified; E11.9 Type 2 diabetes mellitus without complications; N18.4 Chronic kidney disease, stage 4 (severe); E03.9 Hypothyroidism, unspecified; Z79.01 Long term (current) use of anticoagulants | CPT/HCPCS: 80048; 80061; 83880 ==

== ENCOUNTER → 2021-05-25 11:35 | Outpatient (BNVA) | payer MEDICARE, SELFPAY | PROVIDERS: PCP Family Medicine; Visit Provider Orthopaedic Surgery | DX: S52.122D Displaced fracture of head of left radius, subsequent encounter for closed fracture with routine healing; X58.XXXD Exposure to other specified factors, subsequent encounter | CPT/HCPCS: 73080 ==

== ENCOUNTER 2021-06-16 20:01 | Emergency (ER) | payer MEDICARE, SELFPAY ==
--- NOTE | 2021-06-16 | CTR_ITS ---
[facility] Final Radiology Report Call: [phone] assistance Online chat: [email or web address] Name: AAMIR BUSH Age: 75Years F Date: 06/16/2021 SSN: -- : 1945 Study: CT HEAD WO Requesting Physician: ABHIJEET FISHER Images: 194 Add?l Studies: Provided Clinical History: Page 1 of 2 PROCEDURE INFORMATION: Exam: CT Head Without Contrast Exam date and time: 06/16/2021 9:28 PM Age: 75 years old Clinical indication: Injury or trauma; Blunt trauma (contusions or hematomas); Patient HX: Fall on blood thinners TECHNIQUE: Imaging protocol: Computed tomography of the head without contrast. Radiation optimization: All CT scans at this facility use at least one of these dose optimization techniques: automated exposure control; mA and/or kV adjustment per patient size (includes targeted exams where dose is matched to clinical indication); or iterative reconstruction. COMPARISON: MR head wo con* [id number] 09/09/2015 9:21 AM RADIATION DOSE METRICS: Total DLP (mGy-cm): 766.72 FINDINGS: Brain: No hemorrhage. Mild diffuse cerebral atrophy. No significant white matter disease. No mass effect. Cerebral ventricles: No ventriculomegaly. Paranasal sinuses: Visualized sinuses are unremarkable. No fluid levels. Mastoid air cells: Visualized mastoid air cells are well aerated. Bones/joints: Unremarkable. No acute fracture. Soft tissues: Unremarkable. IMPRESSION: No acute intracranial abnormality. Thank you for allowing us to participate in the care of your patient. Dictated and Authenticated by: Jasen Curtis DO 06/16/2021 9:47 PM Central Time ([place] & [place]) [facility]
--- NOTE | 2021-06-16 | XRR_ITS ---
[facility] Final Radiology Report Call: [phone] assistance Online chat: [email or web address] Name: AAMIR BUSH Age: 75Years F Date: 06/16/2021 SSN: -- : 1945 Study: XR KNEE 3 VIEWS Requesting Physician: ABHIJEET FISHER Images: 3 Add?l Studies: Provided Clinical History: PROCEDURE INFORMATION: Exam: XR Right Knee Exam date and time: 06/16/2021 8:30 PM Age: 75 years old Clinical indication: Injury or trauma; Blunt trauma; Injury details: Fall. Swelling and bruising to right knee. TECHNIQUE: Imaging protocol: XR Right knee. Views: 3 views. COMPARISON: No relevant prior studies available. FINDINGS: Bones/joints: Osseous structures are intact. Negative for fracture. Mild joint space narrowing of the medial compartment. Soft tissues: Normal. IMPRESSION: No acute findings. Thank you for allowing us to participate in the care of your patient. Dictated and Authenticated by: Jasen Curtis DO 06/16/2021 9:15 PM Central Time ([place] & [place]) [facility]
--- NOTE | 2021-06-16 | CTR_ITS ---
[facility] Final Radiology Report Call: [phone] assistance Online chat: [email or web address] Name: AAMIR BUSH Age: 75Years F Date: 06/16/2021 SSN: -- : 1945 Study: CT EXTREMITY LOWER WO Requesting Physician: ABHIJEET FISHER Images: [id number] Add?l Studies: Provided Clinical History: CONFIDENTIALITY STATEMENT This report is intended only for use by the referring physician, and only in accordance with law. If you received this in error, call [phone]. PROCEDURE INFORMATION: Exam: CT Right Lower Extremity Without Contrast, Hip Exam date and time: 06/16/2021 9:31 PM Age: 75 years old Clinical indication: Injury or trauma; Fall; Blunt trauma; Hip; Right TECHNIQUE: Imaging protocol: CT of the Right lower extremity without contrast was performed. Exam focused on the hip. Radiation optimization: All CT scans at this facility use at least one of these dose optimization techniques: automated exposure control; mA and/or kV adjustment per patient size (includes targeted exams where dose is matched to clinical indication); or iterative reconstruction. COMPARISON: CR XR hip BI m 5V wo/w pel* [id number] 10/07/2020 4:07 PM RADIATION DOSE METRICS: Total DLP (mGy-cm): 2441.4 FINDINGS: Bones/joints: No acute fracture or dislocation of the right hip. Soft tissues: Normal. IMPRESSION: No acute findings. Thank you for allowing us to participate in the care of your patient. Dictated and Authenticated by: Jasen Curtis DO 06/16/2021 9:54 PM Central Time ([place] & [place]) [facility]ENTER[facility]
--- NOTE | 2021-06-16 | CTR_ITS ---
[facility] Final Radiology Report Call: [phone] assistance Online chat: [email or web address] Name: AAMIR BUSH Age: 75Years F Date: 06/16/2021 SSN: -- : 1945 Study: CT EXTREMITY LOWER WO Requesting Physician: ABHIJEET FISHER Images: [id number] Add?l Studies: Provided Clinical History: Page 1 of 2 PROCEDURE INFORMATION: Exam: CT Right Lower Extremity Without Contrast, Knee Exam date and time: 06/16/2021 9:34 PM Age: 75 years old Clinical indication: Pain and injury or trauma; Fall; Blunt trauma; Knee; Right TECHNIQUE: Imaging protocol: CT of the Right lower extremity without contrast was performed. Exam focused on the knee. Radiation optimization: All CT scans at this facility use at least one of these dose optimization techniques: automated exposure control; mA and/or kV adjustment per patient size (includes targeted exams where dose is matched to clinical indication); or iterative reconstruction. COMPARISON: CT LowExtremit wo RIGHT* [id number] 06/16/2021 9:31 PM RADIATION DOSE METRICS: Total DLP (mGy-cm): 1125.49 FINDINGS: Bones/joints: No acute fracture or dislocation. Soft tissues: Hematoma along the anterior knee which measures 10.3 x 5.4 x 11.5 cm series 3 image 133 and series 401, image 68. IMPRESSION: 1. No acute osseous abnormalities of the right knee. 2. 10.3 x 5.4 x 11.5 cm hematoma along the anterior knee. Thank you for allowing us to participate in the care of your patient. Dictated and Authenticated by: Jasen Curtis DO 06/16/2021 10:04 PM Central Time ([place] & [place]) [facility]
[2021-06-16 20:15] VITALS: BP 131/56; PULSE 57; RESP 16; TEMP 36.4; O2SAT 93; BMI 40.7
[2021-06-16 20:20] VITALS: BP 131/56; PULSE 57; RESP 18; O2SAT 92
--- NOTE | 2021-06-16 20:30 | PC.NURSE ---
pt arrives via ems. pt states she tripped over shoes and feel to the ground. pt states is on blood thinners. does not remember hitting head. bruise to top of nose. pt c/o right knee pain. bruising and swelling to right knee. GCS is 15.
--- NOTE | 2021-06-16 20:33 | W.ED.FALL ---
HPI - Fall General: Chief Complaint: Fall Stated Complaint: RIGHT KNEE PAIN Time Seen by Provider: 06/16/21 20:14 Source: patient and EMS Mode of arrival: EMS Limitations: no limitations History of Present Illness: HPI Narrative: 75-year-old female states she fell today roughly 1 she states she tripped inside her house and fell on her right side states she fell onto her right knee and right hip states she was able to ambulate a little earlier but is no longer able to ambulate due to severe pain in her right knee. She does have bruising and swelling to her knee. States pains in 5 out of 10 much worse with movement improved with rest denies any other injuries from her fall besides some slight hip pain denies any back chest or abdominal pain. she states she also hit her head when she fell Associated symptoms-after fall: Denies abdominal pain, chest pain or headache(s) Review of Systems Const: Denies: fever(s), chills, body aches or change in appetite Eyes: Denies: blurry vision or eye discomfort ENMT: Denies: throat pain or dental pain Card: Denies: chest pain Resp: Denies: dyspnea GI: Denies: abdominal pain, nausea, vomiting or diarrhea : Denies: dysuria Musc: Reports: extremity pain Skin/Breast: Denies: rash Neuro: Denies: headache(s) Psych: Denies: depression Bin/Lymph: Denies: easy bruising All/Imm: Denies: urticaria [facility] PFSH: Medical History Acute on chronic diastolic heart failure Improved compensation Anemia Concern of GI bleeding. Protonix 40 mg twice daily. Received 1 unit of blood. Repeat CBC as an outpatient. Stop Coumadin. Consider initiation of low-dose aspirin, on follow-up with primary Atrial fibrillation History of ablation and Maze procedure, on Betapace, follows with Dr. Mcnair. 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 The most recent echocardiogram was done in July 2018. The results are as follows.Normal left ventricular size and systolic function, EF 58 %. Abnormal (paradoxical) septal motion consistent with postoperative status. The bioprosthetic valve the aortic and mitral position appears to be well-seated with possibly normal leaflet motion. Biatrial enlargement, left worse than the right. [id number] tricuspid valve regurgitation. Moderate pulmonary hypertension with an estimated pulmonary artery mean pressure of 40 mmHg. The bioprosthetic valve the aortic and mitral position appears to be well-seated with no significant stenosis. There is no pericardial effusion. There are no intracardiac masses. Surgical History H/O esophagogastroduodenoscopy 06/17/2019: Gastric erosions, hiatal hernia H/O prior ablation treatment History of hernia repair History of hysterectomy History of open heart surgery Hx of cholecystectomy Hx of colonoscopy Family History Father CAD (coronary artery disease) Brother CAD (coronary artery disease) Diabetes Mother Dementia Family/Other Lung disease Denies family history of Clotting disorder Chronic kidney disease (CKD) Suicide Anesthesia complication Bleeding disorder Cancer Stroke Social History Second hand smoke exposure: No Alcohol intake: never Adopted: No Caregiver/support person: Yes Lives independently: Yes Household members: spouse Housing: House Marital status: Highest education level completed: High School Graduate service: No Current occupational status: retired Current occupational exposures/hazards: No Pets and animals: No History of recent travel: No Sexually active: No Current gender identity: Female Danielle/Sabianist: Jehovah'S Witness Special danielle needs: No Agree to transfusion: No Financial difficulty paying for basics: Decline to Answer Physical Exam Const: COMMON NORMALS: no acute distress, patient oriented x3 and healthy appearing HENMT: COMMON NORMALS: normocephalic; head/scalp not atraumatic (contusion to foreahead) HEAD & SCALP: normocephalic; not atraumatic (contusion to foreahead) Eye: COMMON NORMALS: Equal, round and reactive pupils present and EOMs intact bilaterally PUPIL: Yes Equal, round and reactive pupils present Neck/C-Spine: COMMON NORMALS: full ROM and supple Chest: COMMONS NORMALS: normal inspection of the chest and normal palpation of entire chest wall Resp: COMMON NORMALS: normal respiratory effort, No retractions, No use of accessory muscles and clear to auscultation bilaterally AUSCULTATION: clear to auscultation bilaterally Cardio: COMMON NORMALS: regular rate, regular rhythm and No murmurs present (Cardio) RATE: regular rate RHYTHM: regular rhythm GI: COMMON NORMALS: Normal to inspection, nondistended, normoactive bowel sounds present, Soft to palpation, non-tender and no masses PALPATION: Yes Soft to palpation Extremity: NARRATIVE EXTREMITY EXAM: Large contusion over right knee with tenderness to touch distal pulses intact some pain to right hip as well Neuro: COMMON NORMALS: patient oriented x3, moves all extremities and no focal motor deficits Psych: COMMON NORMALS: mental status grossly normal, Normal thought process present and cooperative THOUGHT PROCESS: Normal thought process present Skin: COMMON NORMALS: no rashes or lesions noted and no wounds GENERAL SKIN EXAM: no rashes or lesions noted Course Vital Signs: Vital signs: Vital Signs Temperature 97.5 F L 06/16/21 20:15 Pulse Rate 67 06/16/21 22:44 Respiratory Rate 18 06/16/21 22:44 Blood Pressure 133/62 06/16/21 22:44 Pulse Oximetry 95 06/16/21 22:44 MDM - Fall MDM Narrative: Medical decision making narrative: Patient presents here with knee pain after a fall also hip pain CT scans here are negative no fractures patient stable for discharge is to ice we will place an Temo wrap she is to follow-up with PCP and return if worsening. Discharge Plan Discharge Patient Disposition: Home Clinical Impression: Fall Qualifiers: Encounter type: initial encounter Qualified Code(s): W19.XXXA - Unspecified fall, initial encounter Contusion of knee, right Qualifiers: Encounter type: initial encounter Qualified Code(s): S80.01XA - Contusion of right knee, initial encounter Condition: Stable Prescriptions: New Naprosyn 500 mg tablet 500 mg PO BID PRN (Reason: pain) Qty: 20 RF: 0 hydrocodone-acetaminophen 5-325 mg tablet 1 tab PO Q6H PRN (Reason: pain) Qty: 14 RF: 0 No Action nystatin 100,000 unit/gram powder 1 applic TOPICAL QDAY Qty: 60 RF: 0 triamcinolone acetonide 0.1 % cream 1 applic TOPICAL BID Qty: 80 RF: 1 metolazone 2.5 mg tablet 2.5 mg PO DAILY PRNRF: 0 montelukast [Singulair] 10 mg tablet 10 mg PO DAILY RF: 0 magnesium 250 mg tablet 250 mg PO BID RF: 0 levothyroxine 75 mcg capsule 75 mcg PO DAILY RF: 0 furosemide 40 mg tablet 40 mg PO BID RF: 0 citalopram 10 mg tablet 10 mg PO QDAY RF: 0 betamethasone acet,sod phos [Celestone Soluspan] 6 mg/mL suspension 6 mg INTRA-HASEEB ONCE Qty: 1 RF: 0 bupivacaine (PF) 0.5 % (5 mg/mL) solution 5 mg INTRA-HASEEB ONCE Qty: 2 RF: 0 lidocaine (PF) 10 mg/mL (1 %) solution 10 mg INTRA-HASEEB ONCE Qty: 2 RF: 0 pantoprazole [Protonix] 40 mg tablet,delayed release (DR/EC) 40 mg PO DAILY RF: 0 sotalol 160 mg tablet 160 mg PO QAM Qty: 90 RF: 3 sotalol 120 mg tablet 120 mg PO .qpm Qty: 90 RF: 3 warfarin 3 mg tablet 3 mg PO .Holding RF: 0 warfarin 1 mg tablet 1 mg PO DIRECTED RF: 0 warfarin 4 mg tablet 4 mg PO DAILY Qty: 90 RF: 3 spironolactone 50 mg tablet See Rx Instructions .ROUTE .COMPLEX Qty: 90 RF: 3 atorvastatin 40 mg tablet See Rx Instructions .ROUTE .COMPLEX Qty: 90 RF: 3 warfarin 5 mg tablet See Rx Instructions mg .ROUTE .COMPLEX Qty: 90 RF: 3 potassium chloride 20 mEq tablet extended release 20 meq PO BID Qty: 180 RF: 3 Discharge Orders: Discharge ED (Routine); Ordered 06/16/21 Ordered By: Conor Finnegan Referrals: Pankaj Dela Cruz MD [Primary Care Provider] - 1-3 days Discharge Diet: Advance as tolerated Discharge Activity: Resume usual activity Patient Instructions: Contusion in Adults (ED), Fall Prevention (ED) Coding Level of Care Code ED Optical Scientist for Chema Fwd Exam Comprehensive
[2021-06-16 21:15] VITALS: RESP 18
[2021-06-16] MEDS: morphine 4 mg/mL SDV 1 mL (21:15)
[2021-06-16] MEDS: ondansetron 2 mg/ML SDV 2 mL 4 MG (21:15)
[2021-06-16 22:44] VITALS: BP 133/62; PULSE 67; RESP 18; O2SAT 95
== END 2021-06-16 22:47 | disposition home or self-care (01) ==
PROVIDERS: Emergency Provider Family Medicine; PCP Family Medicine
DX: S80.01XA Contusion of right knee, initial encounter (principal); W01.0XXA Fall on same level from slipping, tripping and stumbling without subsequent striking against object, initial encounter; Y92.019 Unspecified place in single-family (private) house as the place of occurrence of the external cause; E11.22 Type 2 diabetes mellitus with diabetic chronic kidney disease; I13.0 Hypertensive heart and chronic kidney disease with heart failure and stage 1 through stage 4 chronic kidney disease, or unspecified chronic kidney disease; I50.32 Chronic diastolic (congestive) heart failure; N18.4 Chronic kidney disease, stage 4 (severe); E78.00 Pure hypercholesterolemia, unspecified; E03.9 Hypothyroidism, unspecified; Z95.2 Presence of prosthetic heart valve; Z79.01 Long term (current) use of anticoagulants
CPT/HCPCS: 70450; 73562; 73700; 96374; 96375; 99284; J2270; J2405

== ENCOUNTER → 2021-06-21 12:15 | Outpatient (BNVA) | payer MEDICARE, SELFPAY | PROVIDERS: PCP Family Medicine; Visit Provider Internal Medicine Cardiovascular Disease | DX: I48.11 Longstanding persistent atrial fibrillation (principal) | CPT/HCPCS: 85610 ==

== ENCOUNTER → 2021-06-22 10:40 | Outpatient (BNVA) | payer MEDICARE, SELFPAY | PROVIDERS: PCP Family Medicine; Visit Provider Orthopaedic Surgery | DX: S52.122A Displaced fracture of head of left radius, initial encounter for closed fracture (principal); X58.XXXA Exposure to other specified factors, initial encounter | CPT/HCPCS: 73080 ==

== ENCOUNTER → 2021-08-06 08:51 | Outpatient (BNVA) | payer MEDICARE, SELFPAY | PROVIDERS: PCP Family Medicine; Visit Provider Internal Medicine Cardiovascular Disease | DX: I48.11 Longstanding persistent atrial fibrillation (principal); Z79.01 Long term (current) use of anticoagulants ==

== ENCOUNTER → 2021-08-10 16:27 | Outpatient (BNVA) | payer MEDICARE, SELFPAY | PROVIDERS: PCP Family Medicine; Visit Provider Internal Medicine Cardiovascular Disease | DX: Z79.01 Long term (current) use of anticoagulants (principal) ==

== ENCOUNTER → 2021-08-18 14:43 | Outpatient (BNVA) | payer MEDICARE, SELFPAY | PROVIDERS: PCP Family Medicine; Visit Provider Internal Medicine Cardiovascular Disease | DX: Z79.01 Long term (current) use of anticoagulants (principal) ==

== ENCOUNTER → 2021-08-24 09:23 | Outpatient (BNVA) | payer MEDICARE, SELFPAY | PROVIDERS: PCP Family Medicine; Visit Provider Internal Medicine Cardiovascular Disease | DX: Z79.01 Long term (current) use of anticoagulants (principal) ==

== ENCOUNTER 2021-08-31 14:36 | Outpatient (CLI) | payer MEDICARE, SELFPAY ==
--- NOTE | 2021-08-31 14:44 | XR_ITS ---
WS: [id number] SCREENING DEXA SCAN [employer] CLINICAL INFORMATION: POSTMENOPAUSAL COMPARISON: None. FINDINGS: The L1-L4 bone mineral density measures 1.098 g/cm2. This corresponds to a T score score of -0.7 and Z score of -0.1. Left femoral neck bone mineral density measures 0.763 g/cm2. This corresponds to a T score of -1.9 an d Z score of -1.0. Right femoral neck bone mineral density measures 0.809 g/cm2. This corresponds to a T score -1.6of an d Z score of -0.7. Mean femoral neck bone mineral density measures 0.786 g/cm2. This corresponds to a T score of -1.8 an d Z score of -0.9. XR/XR DEXA axial skeleton* [id number] IMPRESSION: Normal bone mineralization lumbar spine. Osteopenia femoral necks Patient's FRAX calculated 10 year probability for major osteoporotic fracture i s 18.9 % and osteoporotic hip fracture is 4.6%.
== END 2021-08-31 14:37 | disposition home or self-care (01) ==
LOC: RAD 14:39
PROVIDERS: PCP Family Medicine; Visit Provider Nurse Practitioner
DX: Z78.0 Asymptomatic menopausal state (principal)
CPT/HCPCS: 77080

== ENCOUNTER → 2021-09-03 08:32 | Outpatient (BNVA) | payer MEDICARE, SELFPAY | PROVIDERS: PCP Family Medicine; Visit Provider Internal Medicine Cardiovascular Disease | DX: Z79.01 Long term (current) use of anticoagulants (principal) ==

== ENCOUNTER → 2021-09-13 16:00 | Outpatient (BNVA) | payer MEDICARE, SELFPAY | PROVIDERS: PCP Family Medicine; Visit Provider Internal Medicine Cardiovascular Disease | DX: Z79.01 Long term (current) use of anticoagulants (principal) ==

== ENCOUNTER → 2021-09-22 08:47 | Outpatient (BNVA) | payer MEDICARE, SELFPAY | PROVIDERS: PCP Family Medicine; Visit Provider Internal Medicine Cardiovascular Disease | DX: Z79.01 Long term (current) use of anticoagulants (principal) ==

== ENCOUNTER → 2021-09-29 08:33 | Outpatient (BNVA) | payer MEDICARE, SELFPAY | PROVIDERS: PCP Family Medicine; Visit Provider Internal Medicine Cardiovascular Disease | DX: Z79.01 Long term (current) use of anticoagulants (principal) ==

== ENCOUNTER → 2021-10-07 09:59 | Outpatient (BNVA) | payer MEDICARE, SELFPAY | PROVIDERS: PCP Family Medicine; Visit Provider Internal Medicine Cardiovascular Disease | DX: I13.0 Hypertensive heart and chronic kidney disease with heart failure and stage 1 through stage 4 chronic kidney disease, or unspecified chronic kidney disease (principal); E11.22 Type 2 diabetes mellitus with diabetic chronic kidney disease; N18.4 Chronic kidney disease, stage 4 (severe); I50.32 Chronic diastolic (congestive) heart failure; I48.11 Longstanding persistent atrial fibrillation; I38 Endocarditis, valve unspecified; E78.00 Pure hypercholesterolemia, unspecified; Z79.01 Long term (current) use of anticoagulants | CPT/HCPCS: 99214 ==

== ENCOUNTER → 2021-10-08 13:13 | Outpatient (BNVA) | payer MEDICARE, SELFPAY | PROVIDERS: PCP Family Medicine; Visit Provider Internal Medicine Cardiovascular Disease | DX: Z79.01 Long term (current) use of anticoagulants (principal) ==

== ENCOUNTER → 2021-10-12 12:43 | Outpatient (BNVA) | payer MEDICARE, SELFPAY | PROVIDERS: PCP Family Medicine; Visit Provider Internal Medicine Cardiovascular Disease | DX: Z79.01 Long term (current) use of anticoagulants (principal) ==

== ENCOUNTER → 2021-10-21 09:46 | Outpatient (BNVA) | payer MEDICARE, SELFPAY | PROVIDERS: PCP Family Medicine; Visit Provider Internal Medicine Cardiovascular Disease | DX: Z79.01 Long term (current) use of anticoagulants (principal) ==

== ENCOUNTER → 2021-10-29 10:20 | Outpatient (BNVA) | payer MEDICARE, SELFPAY | PROVIDERS: PCP Family Medicine; Visit Provider Internal Medicine Cardiovascular Disease | DX: Z79.01 Long term (current) use of anticoagulants (principal) ==

== ENCOUNTER → 2021-11-03 08:08 | Outpatient (BNVA) | payer MEDICARE, SELFPAY | PROVIDERS: PCP Family Medicine; Visit Provider Internal Medicine Cardiovascular Disease | DX: Z79.01 Long term (current) use of anticoagulants (principal) ==

== ENCOUNTER → 2021-11-10 09:37 | Outpatient (BNVA) | payer MEDICARE, SELFPAY | PROVIDERS: PCP Family Medicine; Visit Provider Internal Medicine Cardiovascular Disease | DX: Z79.01 Long term (current) use of anticoagulants (principal) ==

== ENCOUNTER → 2021-11-17 16:30 | Outpatient (BNVA) | payer MEDICARE, SELFPAY | PROVIDERS: PCP Family Medicine; Visit Provider Internal Medicine Cardiovascular Disease | DX: Z79.01 Long term (current) use of anticoagulants (principal) ==

== ENCOUNTER → 2021-11-25 10:37 | Outpatient (BNVA) | payer MEDICARE, SELFPAY | PROVIDERS: PCP Family Medicine; Visit Provider Internal Medicine Cardiovascular Disease | DX: Z79.01 Long term (current) use of anticoagulants (principal) ==

== ENCOUNTER → 2021-12-03 10:38 | Outpatient (BNVA) | payer MEDICARE, SELFPAY | PROVIDERS: PCP Family Medicine; Visit Provider Internal Medicine Cardiovascular Disease | DX: Z79.01 Long term (current) use of anticoagulants (principal) ==

== ENCOUNTER → 2021-12-08 08:53 | Outpatient (BNVA) | payer MEDICARE, SELFPAY | PROVIDERS: PCP Family Medicine; Visit Provider Internal Medicine Cardiovascular Disease | DX: Z79.01 Long term (current) use of anticoagulants (principal) ==

== ENCOUNTER → 2021-12-15 09:54 | Outpatient (BNVA) | payer MEDICARE, SELFPAY | PROVIDERS: PCP Family Medicine; Visit Provider Internal Medicine Cardiovascular Disease | DX: Z79.01 Long term (current) use of anticoagulants (principal) ==

== ENCOUNTER → 2021-12-21 10:18 | Outpatient (BNVA) | payer MEDICARE, SELFPAY | PROVIDERS: PCP Family Medicine; Visit Provider Internal Medicine Cardiovascular Disease | DX: Z79.01 Long term (current) use of anticoagulants (principal) ==

== ENCOUNTER → 2022-03-28 14:05 | Outpatient (BNVA) | payer MEDICARE, SELFPAY | PROVIDERS: PCP Family Medicine; Visit Provider Podiatrist Foot & Ankle Surgery | DX: E11.9 Type 2 diabetes mellitus without complications (principal); M19.172 Post-traumatic osteoarthritis, left ankle and foot; S93.305A Unspecified dislocation of left foot, initial encounter; W19.XXXA Unspecified fall, initial encounter | CPT/HCPCS: 73610 ==

== ENCOUNTER 2022-03-28 14:58 | Outpatient (CLI) | payer MEDICARE, SELFPAY | END 2022-03-28 14:59 | disposition home or self-care (01) | LOC: SPT 15:00 | PROVIDERS: PCP Family Medicine; Visit Provider Podiatrist Foot & Ankle Surgery | DX: Z46.89 Encounter for fitting and adjustment of other specified devices (principal); M25.572 Pain in left ankle and joints of left foot | CPT/HCPCS: 97760; 99204; L1902 ==

== ENCOUNTER → 2022-04-05 15:17 | Outpatient (BNVA) | payer MEDICARE, SELFPAY | PROVIDERS: PCP Family Medicine; Visit Provider Internal Medicine Cardiovascular Disease | DX: I48.11 Longstanding persistent atrial fibrillation (principal); Z79.01 Long term (current) use of anticoagulants; I38 Endocarditis, valve unspecified; I65.23 Occlusion and stenosis of bilateral carotid arteries; I13.0 Hypertensive heart and chronic kidney disease with heart failure and stage 1 through stage 4 chronic kidney disease, or unspecified chronic kidney disease; E11.22 Type 2 diabetes mellitus with diabetic chronic kidney disease; N18.4 Chronic kidney disease, stage 4 (severe); I50.32 Chronic diastolic (congestive) heart failure | CPT/HCPCS: 99214 ==

== ENCOUNTER 2022-05-04 13:31 | Outpatient (CLI) | payer MEDICARE, SELFPAY ==
--- NOTE | 2022-05-04 13:45 | MR_ITS ---
WS: [id number] MRI LEFT ANKLE NONCONTRAST TECHNIQUE: Sagittal proton density, sagittal STIR, axial proton density, axial T1, axial T2 fat sat, coronal proton density, coronal proton density fat sat, coronal T2 fat sat. CLINICAL INFORMATION: Left ankle pain COMPARISON: None. FINDINGS: Soft tissue edema about the LEFT ankle. Pes planus. Enthesophyte at the Achilles insertion. Hypertrop hic spurring at the talonavicular articulation. Normal ankle mortise. Normal medial and lateral malle olus. Diffuse patchy areas of bone marrow edema involving the talus, calcaneus, cuboid, and tarsal aimee maximino likely due to degenerative changes and osteopenia. No evidence of avascular necrosis in the talar dome. Normal bone marrow signal in the lateral malleolus. Distal Achilles appears normal. Peroneal longus and brevis appears intact. Tendinopathy with evidence of chronic appearing tear involving the tibialis posterior. Diffuse irregularity and tenosynovitis i nvolving the tibialis posterior at the level of the talus. Extensor compartment tendons are normal in appearance. Tibiofibular ligaments appear intact. ATF appears intact. Fluid involving the anterolate ral gutter. Small ankle joint effusion. MR/MR ankle LT wo con* [id number] IMPRESSION: 1. High-grade tear and tendinopathy involving the tibialis posterior with diff use irregularity and surrounding soft tissue edema worse at the level of the ta jeremy. Associated tenosynovitis. Clinical correlation tibialis posterior tear. 2. Normal peroneus longus and brevis. 3. Tibiofibular ligaments and anterior talofibular ligaments appear intact. Fl uid in the anterolateral gutter with a small joint effusion. 4. Diffuse patchy bone marrow edema involving the talus, calcaneus and tarsal bones likely due to degenerative changes and osteoporosis 5. Diffuse soft tissue edema about the ankle. No acute fractures.
== END 2022-05-04 13:32 | disposition home or self-care (01) ==
PROVIDERS: PCP Family Medicine; Visit Provider Podiatrist Foot & Ankle Surgery
DX: M25.572 Pain in left ankle and joints of left foot (principal); R60.0 Localized edema; M76.821 Posterior tibial tendinitis, right leg
CPT/HCPCS: 73721

== ENCOUNTER → 2022-05-06 08:09 | Outpatient (BNVA) | payer MEDICARE, SELFPAY | PROVIDERS: PCP Family Medicine; Visit Provider Podiatrist Foot & Ankle Surgery | DX: E11.9 Type 2 diabetes mellitus without complications (principal); M19.179 Post-traumatic osteoarthritis, unspecified ankle and foot; S93.305A Unspecified dislocation of left foot, initial encounter; X58.XXXA Exposure to other specified factors, initial encounter | CPT/HCPCS: 99214 ==

== ENCOUNTER 2022-05-13 08:33 | Outpatient (CLI) | payer MEDICARE, SELFPAY ==
--- NOTE | 2022-05-13 08:45 | USCV_ITS ---
Sexton, Lori Age: 76 Gender: F : 1945 Exam Date: 05/13/2022 08:41 Ordering Phys: Ada Mcnair MD ([email or web address]) Technologist: CT [place] [facility] [place]ication: STENOSIS Risk Factors: Previous Vascular Surgery: Right Brachial BP: / Left Brachial BP: / Right Left Velocity (cm/s) Spectral Plaque Velocity (cm/s) Spectral Plaque Syst/Diast Broadening Syst/Diast Broadening 80.70/ 14.40 Prox CCA 97.30 / 26.30 86.50/ 13.50 Mid CCA 113.10/ 27.60 71.40/ 12.60 Distal CCA 73.70 / 22.40 67.40/ 29.10 Prox ICA 63.20 / 18.00 120.00/29.10 Mid ICA 77.00 / 26.00 111.60/20.60 Distal ICA 94.00 / 23.30 61.20 ECA 70.50 1.39 ICA/CCA 0.83 Antegrade Vertebral Antegrade 47.00/ 12.00 cm/s 58.40/ 14.30 cm/s Bi Subclavian Bi 114.4 114.7 0 0 FINDINGS no stenosis identified There is minimal thickening and minimal plaques at the left bifurcation and proximal ICA Thickening in the right internal carotid and common carotid artery Good flow in the vertebral arteries bilaterally Normal Doppler flow velocities in the external carotid, subclavian and vertebral arteries bilaterally Elevated velocity in the mid and distal ICA on the right side. Mid and distal ICA were found to be extremely tortuous CONCLUSIONS Normal plaques at the left bifurcation and proximal internal carotid artery, suggesting less than 50% stenosis Extremely tortuous internal carotid artery artery on the right side Elevated velocities in the mid and distal internal carotid artery on the right side, most likely secondary to tortuosity. Compared to the study from 02/05/2020, there may not be a significant change Dr Ada Mcnair MD [facility] (Electronically Signed) Final Date: 13 May 2022 21:52 S
--- NOTE | 2022-05-13 09:30 | USCV_ITS ---
Lori Sexton Age: 76 Gender: F : 1945 Exam Date: 05/13/2022 09:06 Ordering Phys: Ada Mcnair MD ([email or web address]) Technologist: Minerva Davis [place] [facility] [place]: Mitral valve and Aortic valve replaced AVR BP: 130 / 62 HR: 60 Rhythm: Other Technical Quality: Adequate MEASUREMENTS (Male / Female) Normal Values 2D ECHO LV Diastolic Diameter PLAX 4.4 cm 4.2 - 5.9 / 3.9 - 5.3 cm LV Systolic Diameter PLAX 2.3 cm LV Chamber Size 4.1 cm IVS Diastolic Thickness 1.3 cm 0.6 - 1.0 / 0.6 - 0.9 cm IVS Systolic Thickness 1.9 cm LVPW Diastolic Thickness 1.5 cm 0.6 - 1.0 / 0.6 - 0.9 cm LVPW Systolic Thickness 1.6 cm RV Chamber Size 3.8 cm LVOT Diameter 2.0 cm LV Ejection Fraction 2D Teich 79.5 % LV Ejection Fraction MOD 2C 61.0 % LV Ejection Fraction 2C AL 62.0 % LA Diameter 4.4 cm LA Width 3.0 cm LA Height 4.0 cm RA Width 4.3 cm RA Height 4.4 cm Aorta at Sinotubular Diameter 2.3 cm IVC Diameter 1.2 cm M-MODE Aortic Annulus Diameter 3.5 cm LA Ao Ratio MM 1.5 MV E Point Septal Separation 0.8 cm DOPPLER AV Peak Velocity 256.0 cm/s LVOT Peak Velocity 111.0 cm/s AV Area Cont Eq vti 1.5 cm squared AV Area Cont Eq pk 1.4 cm squared MV Peak Velocity 223.0 cm/s MV E' Velocity 7.0 cm/s TR Peak Velocity 367.0 cm/s TR Peak Gradient 53.9 mmHg TR Mean Velocity 250.8 cm/s TR Mean Gradient 27.6 mmHg TR Velocity Time Integral 123.3 cm TV Peak E Velocity 99.0 cm/s Right Atrial Pressure 3.0 mmHg Pulmonary Artery Systolic Pressu 56.9 mmHg RV Acceleration Time 0.1 s RV Ejection Time 0.4 s RV AcT/ET 0.2 FINDINGS Left Ventricle Moderate concentric left ventricular hypertrophy. Normal LV ejection fraction of 62%. No gross wall motion normalities noted Right Ventricle Normal size and ejection fraction Right Atrium Moderately increased right atrial size. Left Atrium Moderately increased left atrial size. Mitral Valve Bioprosthetic valve in the mitral position appears to be well- seated with normal disc motion. No evidence of mitral stenosis Aortic Valve Bioprosthetic valve the aortic position appears to be well- seated. The aortic leaflets appear to be slightly thickened. The peak velocity aortic valve was 2.56 m/s with a peak gradient of 26 and a mean gradient of 12 mmHg. The aortic valve area was calculated to be 1.5 cm2 Tricuspid Valve Moderate tricuspid valve regurgitation. Pulmonic Valve Trace pulmonary valve regurgitation. Moderate pulmonary hypertension with estimated pulmonary artery peak systolic pressure of 57 and a mean pressure of 37 mmHg Pericardium Normal pericardium without effusion. Aorta Normal ascending aorta dimension. IVC Normal IVC dimension with <50% respiratory change of the inferior vena cava. CONCLUSIONS Normal LV ejection fraction of 62%. No gross wall motion normalities noted. Moderate concentric left ventricular hypertrophy. Bioprosthetic valve in the mitral position appears to be well- seated with normal disc motion. No evidence of mitral stenosis. Moderate biatrial enlargement Bioprosthetic valve the aortic position appears to be well- seated. The peak gradient across the valve is 26 mmHg with a mean gradient of 12. Moderate tricuspid valve regurgitation. Moderate pulmonary hypertension with an estimated pulmonary artery peak systolic pressure of 57 and a mean pressure of 37 mmHg. There is no pericardial effusion. There are no intracardiac masses. Compared to the study from 08/03/2018, there may not be a significant change Dr Ada Mcnair MD [facility] (Electronically Signed) Final Date: 13 May 2022 21:20 S
== END 2022-05-13 08:34 | disposition home or self-care (01) ==
LOC: RAD 08:34
PROVIDERS: PCP Family Medicine; Visit Provider Internal Medicine Cardiovascular Disease
DX: I38 Endocarditis, valve unspecified (principal); I65.23 Occlusion and stenosis of bilateral carotid arteries; I77.9 Disorder of arteries and arterioles, unspecified; R06.09 Other forms of dyspnea
CPT/HCPCS: 93306; 93880

== ENCOUNTER → 2022-06-06 13:45 | Outpatient (BNVA) | payer MEDICARE, SELFPAY | PROVIDERS: PCP Family Medicine; Visit Provider Podiatrist Foot & Ankle Surgery | DX: E11.9 Type 2 diabetes mellitus without complications (principal); M19.172 Post-traumatic osteoarthritis, left ankle and foot; M76.822 Posterior tibial tendinitis, left leg | CPT/HCPCS: 99213 ==

== ENCOUNTER → 2023-02-01 16:14 | Outpatient (BNVA) | payer MEDICARE, SELFPAY | PROVIDERS: PCP Family Medicine; Visit Provider Internal Medicine Cardiovascular Disease | DX: R07.9 Chest pain, unspecified (principal); R06.02 Shortness of breath; I65.23 Occlusion and stenosis of bilateral carotid arteries; I48.11 Longstanding persistent atrial fibrillation; I38 Endocarditis, valve unspecified; E78.00 Pure hypercholesterolemia, unspecified; I13.0 Hypertensive heart and chronic kidney disease with heart failure and stage 1 through stage 4 chronic kidney disease, or unspecified chronic kidney disease; I50.32 Chronic diastolic (congestive) heart failure; E03.9 Hypothyroidism, unspecified; N18.4 Chronic kidney disease, stage 4 (severe) | CPT/HCPCS: 36415; 80048; 83880; 93005; 99214 ==

== ENCOUNTER → 2023-08-16 12:52 | Outpatient (BNVA) | payer MEDICARE, SELFPAY | PROVIDERS: PCP Family Medicine; Visit Provider Internal Medicine Cardiovascular Disease | DX: R06.02 Shortness of breath (principal); I10 Essential (primary) hypertension | CPT/HCPCS: 36415; 80048; 83880; 99214 ==

== ENCOUNTER 2023-08-24 11:18 | Outpatient (CLI) | payer MEDICARE, SELFPAY ==
--- NOTE | 2023-08-24 12:00 | USCV_ITS ---
Lori Sexton Age: 78 Gender: F : 1945 Exam Date: 08/24/2023 11:38 Ordering Phys: Ada Mcnair MD ([email or web address]) Technologist: Franklyn Coleman [place] [facility] [place]ication: mv and av prost BP: 120 / 70 HR: 61 Rhythm: Sinus Technical Quality: Adequate MEASUREMENTS (Male / Female) Normal Values 2D ECHO LV Diastolic Diameter PLAX 3.6 cm 4.2 - 5.9 / 3.9 - 5.3 cm IVS Diastolic Thickness 1.5 cm 0.6 - 1.0 / 0.6 - 0.9 cm IVS Systolic Thickness 1.7 cm LVPW Diastolic Thickness 1.4 cm 0.6 - 1.0 / 0.6 - 0.9 cm LVPW Systolic Thickness 1.5 cm LVOT Diameter 2.0 cm LV Ejection Fraction 2D Teich 66.6 % LV Ejection Fraction MOD 2C 70.1 % LV Ejection Fraction 2C AL 72.7 % LA Diameter 4.3 cm RA Systolic Volume 4C AL 54.0 ml RA Systolic Volume 4C MOD 52.2 ml Aorta at Sinotubular Diameter 2.6 cm IVC Diameter 2.0 cm M-MODE LA Ao Ratio MM 1.4 AV Cusp Separation MM 2.7 cm DOPPLER AV Peak Velocity 205.0 cm/s LVOT Peak Velocity 131.0 cm/s AV Area Cont Eq vti 2.4 cm squared AV Area Cont Eq pk 2.0 cm squared MV Peak Velocity 263.0 cm/s MV Area PHT 2.1 cm squared TV Peak Velocity 203.0 cm/s TR Peak Velocity 225.0 cm/s TR Peak Gradient 20.3 mmHg TV Peak E Velocity 183.0 cm/s Right Atrial Pressure 3.0 mmHg Pulmonary Artery Systolic Pressu 23.3 mmHg PV Peak Velocity 117.0 cm/s FINDINGS Left Ventricle Normal left ventricular size and systolic function, EF 70%. Moderate concentric left ventricular hypertrophy.Grade III/IV diastolic dysfunction (restrictive filling pattern), severely elevated filling pressures. Right Ventricle Normal size ejection fraction Right Atrium Mildly dilated Left Atrium Moderately increased left atrial size. Mitral Valve The bioprosthetic valve the mitral position appears to be well- seated. Mitral leaflets appear to be thickened. Mean gradient across the valve was 7.4 mmHg with a peak velocity of 2.6 cm/s. The valve area was calculated to be 2.1 cm squared by pressure half- time Aortic Valve The bioprosthetic valve at the aortic position appears to be well-seated. Peak velocity was 2.05 m/s. The valve area is calculated to be 2.0 cm squared Tricuspid Valve Mild tricuspid regurgitation. Moderate pulm hypertension with estimated pulmonary artery peak systolic pressure of 55 mmHg with a mean pressure of 32 mmHg Pulmonic Valve Trace pulmonary valve regurgitation. Pericardium No pericardial effusion. Aorta Normal aortic annulus size. IVC Normal inferior vena cava. CONCLUSIONS Normal left ventricular size and systolic function, EF 70%. Moderate concentric left ventricular hypertrophy.Grade III/IV diastolic dysfunction (restrictive filling pattern), severely elevated filling pressures. The bioprosthetic valve the mitral position appears to be well- seated. Mitral leaflets appear to be thickened. Mean gradient across the valve was 7.4 mmHg with a peak velocity of 2.6 cm/s. The valve area was calculated to be 2.1 cm squared by pressure half- time. The tissue valve at the aortic position appears to be well- seated. Peak velocity was 2.05 m/s. The valve area is calculated to be 2.0 cm squared. Mild tricuspid regurgitation. Moderate pulm hypertension with estimated pulmonary artery peak systolic pressure of 55 mmHg with a mean pressure of 32 mmHg. Moderately increased left atrial size. Mildly dilated right atrium Trace pulmonary valve regurgitation. There is no pericardial effusion. Compared to the study from 08/03/2018, there may not be significant change Dr Ada Mcnair MD [facility] (Electronically Signed) Final Date: 01 September 2023 09:13 S
== END 2023-08-24 11:19 | disposition home or self-care (01) ==
LOC: RAD 11:19
PROVIDERS: PCP Family Medicine; Visit Provider Internal Medicine Cardiovascular Disease
DX: R06.09 Other forms of dyspnea (principal)
CPT/HCPCS: 93306

== ENCOUNTER 2024-01-10 09:25 | Emergency (ER) | payer MEDICARE, SELFPAY ==
--- NOTE | 2024-01-10 09:31 | ECG_ITS ---
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 Measurements Intervals [place] Rate: 69 P: 0 UT: 0 QRS: 81 QRSD: 93 T: 79 QT: 430 QTc: 461 Interpretive Statements SUPRAVENTRICULAR RHYTHM Compared to ECG 02/01/2023 16:21:09 Early repolarization no longer present Electronically Signed On 01-10-2024 11:19:12 CDT by Kodi Colmenares M.D. [id number]
[2024-01-10 09:34] VITALS: BP 154/90; PULSE 70; RESP 18; TEMP 36.7; O2SAT 95; BMI 42.1
--- NOTE | 2024-01-10 10:12 | XR_ITS ---
WS: [id number] Examination: XR chest 1V portable [id number] Reason for Exam: chest pain Date: January 10, 2024 Comparison: June 06, 2019 Findings: The heart is enlarged. Sternal wires are in place. Valve replacements are noted. There is mild pulmonary venous hypertension without overt failure. No large effusion is identified. T here is no dense consolidation. XR/XR chest 1V portable [id number] Impression: There is cardiomegaly and pulmonary venous hypertension noted.
--- NOTE | 2024-01-10 10:26 | ED_ITS ---
HPI - Chest Pain 2 General: Chief Complaint: Chest Pain Stated Complaint: Chest Pains Time Seen by Provider: 01/10/24 10:09 History of Present Illness: 78-year-old female presents emergency ro om with complaint of chest pain and epigastric discomfort. Radiates into the left side of her chest and into her back. He had no associated nausea vomiting it woke her from sleep. She took 1 nitro pain is relieved. She has not previously had any stents or bypass. She has had bioprosthetic valve replacements on the aortic and mitral valves she is on Coumadin due to her valvular induced atrial fibrillation. She has not recently changed or reduced her medication. She did not have any chest pain or discomfort at this time. Associated symptoms: Deny abdominal pain, dyspnea or fever(s) Related Data Home Medications Medication Instructions Recorded Confirmed furosemide 40 mg tablet 40 mg PO BID 05/29/19 01/10/24 levothyroxine 75 mcg capsule 75 mcg PO DAILY 05/29/19 01/10/24 magnesium 250 mg tablet 250 mg PO BID 05/29/19 01/10/24 montelukast 10 mg tablet 10 mg PO DAILY 05/29/19 01/10/24 (Singulair) warfarin 1 mg tablet 1 mg PO DIRECTED 08/15/19 01/10/24 pantoprazole 40 mg tablet,delayed 40 mg PO DAILY 01/13/21 01/10/24 release (Protonix) donepezil 5 mg tablet 5 mg PO DAILY 04/05/22 01/10/24 memantine 5 mg tablet 5 mg PO BID 02/01/23 01/10/24 prednisone 5 mg tablet 5 mg PO DAILY 02/01/23 01/10/24 atorvastatin 40 mg tablet 40 mg PO DAILY 01/10/24 01/10/24 citalopram 20 mg tablet 20 mg PO DAILY 01/10/24 01/10/24 loratadine 10 mg tablet 10 mg PO DAILY 01/10/24 01/10/24 losartan 25 mg tablet 25 mg PO DAILY 01/10/24 01/10/24 metolazone 5 mg tablet 5 mg PO DAILY PRN Edema 01/10/24 01/10/24 potassium chloride 20 mEq 20 meq PO BID 01/10/24 01/10/24 tablet,extended release(part/cryst) sotalol 120 mg tablet (Sotalol AF) 120 mg PO QPM 01/10/24 01/10/24 sotalol 160 mg tablet (Sotalol AF) 160 mg PO QAM 01/10/24 01/10/24 spironolactone 50 mg tablet 50 mg PO DAILY 01/10/24 01/10/24 warfarin 3 mg tablet See Rx Instructions .Route .COMPLEX 01/10/24 01/10/24 warfarin 4 mg tablet See Rx Instructions .Route .COMPLEX 01/10/24 01/10/24 Previous Rx's Medication Instructions Recorded warfarin 5 mg tablet See Rx Instructions .Route 03/01/21 .COMPLEX #90 tabs ASO brace #1 ea 03/28/22 Left [place] AFO brace #1 ea 06/06/22 pantoprazole 40 mg tablet,delayed 40 mg PO BID 10 days #40 tabs 01/10/24 release (Protonix) Allergies Allergy/AdvReac Type Severity Reaction Status Date / Time adhesive tape Allergy ALGY-Rash Verified 08/16/23 11:48 Review of Systems 2 Const: Denies: fever(s) or chills Card: Reports: chest pain Resp: Denies: dyspnea GI: Denies: abdominal pain : Denies: dysuria, urinary frequency or urinary urgency Musc: Denies: neck pain or back pain Skin/Breast: Denies: rash PFSH ED 2 PFSH: Medical History (Updated 01/10/24 @ 13:40 by Shaun Juarez DO) Carotid occlusion, bilateral GI bleed Anemia Concern of GI bleeding. Protonix 40 mg twice daily. Received 1 unit of blood. Repeat CBC as an outpatient. Stop Coumadin. Consider initiation of low-dose aspirin, on follow-up with primary Acute on chronic diastolic heart failure Improved compensation Diabetes mellitus type 2, noninsulin dependent Chronic kidney disease, stage IV (severe) Stable Hypothyroidism Congestive heart failure Chronic diastolic Hypertension Chronic anticoagulation Hypercholesteremia Valvular heart disease Atrial fibrillation History of endocardial and epicardial ablation, AV ervin ablation, maze procedure . Currently on Betapace 160 mg p.o. twice daily Surgical History (Updated 01/10/24 @ 10:36 by Shaun Juarez DO) S/P aortic valve replacement with bioprosthetic valve S/P mitral valve replacement with bioprosthetic valve History of open heart surgery Hx of cholecystectomy H/O prior ablation treatment History of hernia repair History of hysterectomy H/O esophagogastroduodenoscopy 06/17/2019: Gastric erosions, hiatal hernia Hx of colonoscopy Family History Father CAD (coronary artery disease) Brother CAD (coronary artery disease) Diabetes Mother Dementia Family/Other Lung disease Denies family history of Clotting disorder Chronic kidney disease (CKD) Suicide Anesthesia complication Bleeding disorder Cancer Stroke Social History Smoking and tobacco/nicotine status: never used tobacco/nicotine Second hand smoke exposure: No Alcohol intake: never Substance/Drug Use: never Adopted: No Caregiver/support person: Yes Lives independently: Yes Household members: spouse Housing: House Marital status: Highest education level completed: High School Graduate service: No Current occupational status: retired Current occupational exposures/hazards: No Pets and animals: No Sexually active: No Do you think of yourself as: Straight/Heterosexual Current gender identity: Female Danielle/Mormon: Congregation Special danielle needs: No Agree to transfusion: No Physical Exam 2 Const: GENERAL APPEARANCE: cooperative ORIENTATION/CONSCIOUSNESS: Yes awake, Yes oriented to person, Yes oriented to place and Yes oriented to time HENMT: COMMON NORMALS: normocephalic, atraumatic and hearing grossly normal bilaterally HEAD & SCALP: normocephalic and atraumatic Resp: COMMON NORMALS: normal respiratory effort, No retractions, No use of accessory muscles and clear to auscultation bilaterally AUSCULTATION: clear to auscultation bilaterally Cardio: COMMON NORMALS: regular rate and regular rhythm RATE: regular rate RHYTHM: regular rhythm GI: COMMON NORMALS: Soft to palpation and No hepatosplenomegaly present A USCULTATION: Yes normoactive bowel sounds PALPATION: Yes Soft to palpation, No Tenderness to palpation present (GI), No Guarding due to palpation present (GI) and Yes No hepatosplenomegaly present Extremity: COMMON NORMALS: normal to inspection, capillary refill normal, no clubbing, cyanosis or edema, no calf tenderness and no pedal edema Neuro: SENSORIUM/ORIENTATION: Yes oriented to person, Yes oriented to place and Yes oriented to time Skin: COMMON NORMALS: no rashes or lesions noted GENERAL SKIN EXAM: no rashes or lesions noted Course 2 Vital Signs: Vital signs: Vital Signs Temperature 98.1 F 01/10/24 09:34 Pulse Rate 64 01/10/24 14:05 Respiratory Rate 18 01/10/24 09:34 Blood Pressure 169/74 01/10/24 14:05 Pulse Oximetry 93 01/10/24 14:05 Oxygen Delivery Me thod Room Air 01/10/24 09:34 MDM - Chest Pain Medical Decision Making EKG does not show any acute changes. Patient has junctional rhythms had this previously. Cardiac enzymes trended negative. She did have significant improvement with complete resolution of her symptoms with a GI cocktail. Will discharge patient home increase her Protonix to 40 twice daily for 10 days then 40 daily. Set her up for an outpatient Lexiscan sestamibi stress test Medical Records I reviewed the patient's medical records. Lab Data I reviewed the patient's lab results. 01/10/24 09:32 01/10/24 09:32 Radiology Impressions Chest X-Ray 01/10/24 10:12 Impression: There is cardiomegaly and pulmonary venous hypertension noted. Laboratory Results WBC 10.48 10^3/uL (3.29-11.43) 01/10/24 09:32 RBC 4.46 10^6/uL (3.85-5.65) 01/10/24 09:32 Hgb 12.80 g/dL (11.27-16.99) 01/10/24 09:32 Hct 40.6 % (36-47) 01/10/24 09:32 MCV 91.0 fl (85-98) 01/10/24 09:32 MCH 28.7 pg (27-33) 01/10/24 09:32 MCHC 31.5 g/dL (30-55) 01/10/24 09:32 RDW 15.1 % (12.1-15.1) 01/10/24 09:32 Plt Count 227 10^3/cmm (157-399) 01/10/24 09:32 MPV 11.2 fL (7.4-10.4) H 01/10/24 09:32 Neut % (Auto) 64.5 % 01/10/24 09:32 Lymph % (Auto) 16.5 % 01/10/24 09:32 [place] % (Auto) 16.7 % 01/10/24 09:32 Eos % (Auto) 1.3 % 01/10/24 09:32 Baso % (Auto) 0.4 % 01/10/24 09:32 Neut # (Auto) 6.76 10^3/uL (1.8-7.7) 01/10/24 09:32 Lymph # (Auto) 1.7 10^3/uL (0.8-4.8) 01/10/24 09:32 [place] # (Auto) 1.8 10^3/uL (0.2-0.9) H 01/10/24 09:32 Eos # (Auto) 0.1 10^3/uL (0.0-0.8) 01/10/24 09:32 Baso # (Auto) 0.0 10^3/uL (0.0-0.1) 01/10/24 09:32 Nucleated RBC % (auto) 0 % 01/10/24 09:32 Nucleated RBCs # 0.0 /100WBC 01/10/24 09:32 PT 19.80 SECONDS (12.1-14.9) H 01/10/24 09:32 INR 1.62 (0.8-1.2) H 01/10/24 09:32 APTT 28.9 SECONDS (23.9-36.7) 01/10/24 09:32 Sodium 137 mmol/L (136-145) 01/10/24 09:32 Potassium 4.0 mmol/L (3.5-5.1) 01/10/24 09:32 Chloride 95 mmol/L (98-107) L 01/10/24 09:32 Carbon Dioxide 30 mmol/L (22-29) H 01/10/24 09:32 Anion Gap 16.0 (5-19) 01/10/24 09:32 BUN 17 mg/dL (8-23) 01/10/24 09:32 Creatinine 1.5 mg/dL (0.5-0.9) H 01/10/24 09:32 GFR Calculation Not Reportable 01/10/24 09:32 Glucose 264 mg/dL (65-115) H 01/10/24 09:32 Calculated Osmolality 295 mOsm/kg (285-295) 01/10/24 09:32 Calcium 10.1 mg/dL (8.5-10.5) 01/10/24 09:32 Total Bilirubin 0.8 mg/dL (0.15-1.2) 01/10/24 09:32 AST 19 U/L (0-32) 01/10/24 09:32 ALT 25 U/L (0-33) 01/10/24 09:32 Alkaline Phosphatase 132 U/L (35-105) H 01/10/24 09:32 Troponin T Baseline 17 ng/L (0-10) H 01/10/24 09:32 Troponin T 120 Minute 16.17 ng/L (0-10) H 01/10/24 11:35 Delta Troponin T -0.83 ABS# (0-10) L 01/10/24 11:35 Total Protein 7.2 g/dL (6.6-8.7) 01/10/24 09:32 Albumin 4.4 g/dL (3.5-5.2) 01/10/24 09:32 Globulin 2.8 g/dL (1.3-4.6) 01/10/24 09:32 All radiology interpretation(s) finalized by discharge Discharge Plan Discharge Patient Disposition: Home Clinical Impression: Atypical chest pain Condition: Stable Prescriptions: New Protonix 40 mg tablet,delayed release (DR/EC) 40 mg PO BID 10 Days Qty: 40 0RF Rx Instructions: 1 p.o. twice daily for 10 days then 1 p.o. daily No Action montelukast [Singulair] 10 mg tablet 10 mg PO DAILY magnesium 250 mg tablet 250 mg PO BID levothyroxine 75 mcg capsule 75 mcg PO DAILY furosemide 40 mg tablet 40 mg PO BID pantoprazole [Protonix] 40 mg tablet,delayed release (DR/EC) 40 mg PO DAILY donepezil 5 mg tablet 5 mg PO DAILY (DME) ASO brace 9 See Rx Instructions .Route .MEDSUPPLY Qty: 1 0RF Rx Instructions: As directed (DME) [facility] See Rx Instructions .Route .MEDSUPPLY Qty: 1 0RF Rx Instructions: As directed prednisone 5 mg tablet 5 mg PO DAILY memantine 5 mg tablet 5 mg PO BID warfarin 1 mg tablet 1 mg PO DIRECTED Protocol: Dose Management Condition: Monday Dose/Route: 4 mg Instruction: 1 x 4 mg tablet Condition: Monday Dose/Route: 3 mg Instruction: 1 x 3 mg tablet Condition: Monday Dose/Route: 4 mg Instruction: 1 x 4 mg tablet Condition: Monday Dose/Route: 3 mg Instruction: 1 x 3 mg tablet Condition: Dose/Route: 4 mg Instruction: 1 x 4 mg tablet Condition: Monday Dose/Route: 3 mg Instruction: 1 x 3 mg tablet Condition: Monday Dose/Route: 4 mg Instruction: 1 x 4 mg tablet Protocol Text: Adjustment Start Date: Monday01/09/24 INR Value: 2.2 INR Date: 01/08/24 Recheck Date: 01/16/24 warfarin 5 mg tablet See Rx Instructions .ROUTE .COMPLEX Qty: 90 3RF Protocol: Dose Management Condition: Monday Dose/Route: 4 mg Instruction: 1 x 4 mg tablet Condition: Monday Dose/Route: 3 mg Instruction: 1 x 3 mg tablet Condition: Monday Dose/Route: 4 mg Instruction: 1 x 4 mg tablet Condition: Monday Dose/Route: 3 mg Instruction: 1 x 3 mg tablet Condition: Dose/Route: 4 mg Instruction: 1 x 4 mg tablet Condition: Monday Dose/Route: 3 mg Instruction: 1 x 3 mg tablet Condition: Monday Dose/Route: 4 mg Instruction: 1 x 4 mg tablet Protocol Text: Adjustment Start Date: Monday01/09/24 INR Value: 2.2 INR Date: 01/08/24 Recheck Date: 01/16/24 Dose Instruction: TAKE 1 TABLET EVERY DAY DIRECTED Rx Instructions: TAKE 1 TABLET EVERY DAY DIRECTED metolazone 5 mg tablet 5 mg PO DAILY PRN (Reason: Edema) citalopram 20 mg tablet 20 mg PO DAILY loratadine 10 mg tablet 10 mg PO DAILY Sotalol AF 160 mg tablet 160 mg PO QAM atorvastatin 40 mg tablet 40 mg PO DAILY Sotalol AF 120 mg tablet 120 mg PO QPM warfarin 4 mg tablet See Rx Instructions .ROUTE .COMPLEX Protocol: Dose Management Condition: Monday Dose/Route: 4 mg Instruction: 1 x 4 mg tablet Condition: Monday Dose/Route: 3 mg Instruction: 1 x 3 mg tablet Condition: Monday Dose/Route: 4 mg Instruction: 1 x 4 mg tablet Condition: Monday Dose/Route: 3 mg Instruction: 1 x 3 mg tablet Condition: Dose/Route: 4 mg Instruction: 1 x 4 mg tablet Condition: Monday Dose/Route: 3 mg Instruction: 1 x 3 mg tablet Condition: Monday Dose/Route: 4 mg Instruction: 1 x 4 mg tablet Protocol Text: Adjustment Start Date: Monday01/09/24 INR Value: 2.2 INR Date: 01/08/24 Recheck Date: 01/16/24 Rx Instructions: TAKE 1 TABLET BY MOUTH ON MONDAY, MONDAY, MONDAY, AND MONDAY. warfarin 3 mg tablet See Rx Instructions .ROUTE .COMPLEX Protocol: Dose Management Condition: Monday Dose/Route: 4 mg Instruction: 1 x 4 mg tablet Condition: Monday Dose/Route: 3 mg Instruction: 1 x 3 mg tablet Condition: Monday Dose/Route: 4 mg Instruction: 1 x 4 mg tablet Condition: Monday Dose/Route: 3 mg Instruction: 1 x 3 mg tablet Condition: Dose/Route: 4 mg Instruction: 1 x 4 mg tablet Condition: Monday Dose/Route: 3 mg Instruction: 1 x 3 mg tablet Condition: Monday Dose/Route: 4 mg Instruction: 1 x 4 mg tablet Protocol Text: Adjustment Start Date: Monday01/09/24 INR Value: 2.2 INR Date: 01/08/24 Recheck Date: 01/16/24 Rx Instructions: TAKE 1 TABLET BY MOUTH ON , MONDAY, AND MONDAY. potassium chloride 20 mEq tablet,ER particles/crystals 20 meq PO BID losartan 25 mg tablet 25 mg PO DAILY spironolactone 50 mg tablet 50 mg PO DAILY Discharge Orders: Discharge ED (Routine); Ordered 01/10/24 Ordered By: Shaun Juarez Referrals: Pankaj Dela Cruz MD [Primary Care Provider] - Discharge Diet: Usual diet Discharge Activity: Increase activity as tolerated Patient Instructions: Opioid Safety, Pain Management Activity Restrictions/Additional Instructions: Thank you for choosing [facility] for your healthcare needs today. It is very important that you follow up as instructed or that you return to the Emergency Department should you have concerns or if your condition changes or worsens in any way. You were seen in the emergency room with complaint of chest discomfort your EKG and chest x-ray were normal. Suspect that this is GI related pain. Your symptoms did improve with a GI cocktail. Will discharge you home increase your pantoprazole to 1 tablet twice a day for 10 days then once daily. software program manager will make arrangements for you to have an outpatient graded exercise stress test Coding Level of Care Code ED Science Job Titles for Chema Yost
[2024-01-10] MEDS: aspirin 81 mg Chew Tablet 324 MG PO (10:27)
[2024-01-10 10:35] LABS: Basophils % 0.4 %; Eosinophils # 0.1 10^3/uL (0.0-0.8); Eosinophils % 1.3 %; Hematocrit 40.6 % (36-47); Lymphocytes # 1.7 10^3/uL (0.8-4.8); Lymphocytes % 16.5 %; Mean Corpuscular HGB Conc 31.5 g/dL (30-55); Mean Corpuscular Hemoglobin 28.7 pg (27-33); Mean Platelet Volume 11.2 fL (7.4-10.4); Monocytes # 1.8 10^3/uL (0.2-0.9); Monocytes % 16.7 %; Neutrophils # 6.76 10^3/uL (1.8-7.7); Neutrophils % 64.5 %; Nucleated Red Blood Cells % 0 %; Platelet Count 227 10^3/cmm (157-399); Red Blood Count 4.46 10^6/uL (3.85-5.65); Red Cell Distribution Width 15.1 % (12.1-15.1); White Blood Count 10.48 10^3/uL (3.29-11.43)
[2024-01-10 10:44] LABS: INR 1.62 (0.8-1.2); Partial Thromboplastin Time 28.9 SECONDS (23.9-36.7)
[2024-01-10 10:47] LABS: Alanine Aminotransferase 25 U/L (0-33); Albumin Level 4.4 g/dL (3.5-5.2); Alkaline Phosphatase 132 U/L (35-105); Aspartate Amino Transferase 19 U/L (0-32); Blood Urea Nitrogen 17 mg/dL (8-23); Calcium 10.1 mg/dL (8.5-10.5); Carbon Dioxide 30 mmol/L (22-29); Chloride 95 mmol/L (98-107); Creatinine Clr Calc Pharmacy 37.0001; Globulin 2.8 g/dL (1.3-4.6); Glucose 264 mg/dL (65-115); Osmolality Calculated 295 mOsm/kg (285-295); Sodium 137 mmol/L (136-145); Total Bilirubin 0.8 mg/dL (0.15-1.2); Total Protein 7.2 g/dL (6.6-8.7)
[2024-01-10 10:49] LABS: Troponin(5th) Baseline 17 ng/L (0-10)
[2024-01-10 11:14] VITALS: BP 142/95; PULSE 67; O2SAT 92
--- NOTE | 2024-01-10 12:02 | ECG_ITS ---
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 Measurements Intervals [place] Rate: 63 P: 0 [place]: 0 QRS: 79 QRSD: 87 T: 79 QT: 474 QTc: 486 Interpretive Statements SUPRAVENTRICULAR RHYTHM WITH PVC PROLONGED QT INTERVAL Compared to ECG 01/10/2024 09:31:15 Ventricular premature complex(es) now present Aberrant conduction of supraventricular beat(s) now present Electronically Signed On 01-10-2024 13:19:29 CDT by Kodi Colmenares M.D. [id number]
[2024-01-10 12:03] LABS: Troponin 5 2HR 16.17 ng/L (0-10); Troponin 5 2HR Delta -0.83 ABS# (0-10)
[2024-01-10] MEDS: lidocaine 2% viscous 15 ML, aluminum-mag hydrox-simethicon 30 ML, sucralfate oral liq 1 GM PO (12:25)
[2024-01-10 14:05] VITALS: BP 169/74; PULSE 64; O2SAT 93
--- NOTE | 2024-01-10 18:13 | DCPLANNER ---
faxed outpoatient order to scheduling for er f/u (lexiscan)
== END 2024-01-10 14:09 | disposition home or self-care (01) ==
PROVIDERS: Emergency Provider Family Medicine; PCP Family Medicine
DX: R07.89 Other chest pain (principal); Z79.01 Long term (current) use of anticoagulants; E11.22 Type 2 diabetes mellitus with diabetic chronic kidney disease; I13.0 Hypertensive heart and chronic kidney disease with heart failure and stage 1 through stage 4 chronic kidney disease, or unspecified chronic kidney disease; N18.4 Chronic kidney disease, stage 4 (severe); I50.9 Heart failure, unspecified; Z95.2 Presence of prosthetic heart valve
CPT/HCPCS: 36415; 71045; 80053; 84484; 85025; 85610; 85730; 93005; 99285

== ENCOUNTER → 2024-02-22 13:38 | Outpatient (BNVA) | payer MEDICARE, SELFPAY | PROVIDERS: PCP Family Medicine; Visit Provider Internal Medicine Cardiovascular Disease | DX: I48.11 Longstanding persistent atrial fibrillation (principal); I38 Endocarditis, valve unspecified; E78.00 Pure hypercholesterolemia, unspecified; Z79.01 Long term (current) use of anticoagulants; I10 Essential (primary) hypertension; I50.32 Chronic diastolic (congestive) heart failure | CPT/HCPCS: 99214 ==

== ENCOUNTER 2024-04-21 10:00 | Emergency (ER) | payer MEDICARE, SELFPAY ==
[2024-04-21 10:10] VITALS: BP 154/78; PULSE 65; RESP 20; TEMP 36.5; O2SAT 94; BMI 40.1
--- NOTE | 2024-04-21 10:15 | ECG_ITS ---
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
--- NOTE | 2024-04-21 10:24 | XRR_ITS ---
PROCEDURE INFORMATION: Exam: XR Chest Exam date and time: 04/21/2024 10:31 AM Age: 78 years old Clinical indication: Cough and dyspnea; Prior surgery; Surgery date: 6+ months; Surgery type: Aortic & mitral valves replaced 2010; Patient HX: PT here via pov with C/O heart quivering . PT states she feels as if her heart jiggles. PT reports shakiness, fatigue, diarrhea, and abd pain. PT states symptoms started 3 days ago. ; Additional info: Dyspnea/cough TECHNIQUE: Imaging protocol: Radiologic exam of the chest. Views: 1 view. COMPARISON: CR XR chest 1V portable [id number] 01/10/2024 10:28 AM FINDINGS: Lungs: Unremarkable. No consolidation or mass. Pleural spaces: Unremarkable. No pleural effusion. No pneumothorax. Heart/Mediastinum: There is evidence of a prosthetic heart valve. Mild cardiomegaly is noted. A hiatal hernia is noted in the lower mediastinum. Bones/joints: Sternal sutures are noted. XR/XR chest 1V portable [id number] IMPRESSION: No acute findings. Stable cardiomegaly
[2024-04-21 10:37] LABS: Basophils % 0.4 %; Eosinophils # 0.1 10^3/uL (0.0-0.8); Hematocrit 37.2 % (36-47); Lymphocytes # 1.5 10^3/uL (0.8-4.8); Lymphocytes % 17.1 %; Mean Corpuscular HGB Conc 31.7 g/dL (30-55); Mean Corpuscular Hemoglobin 29.4 pg (27-33); Mean Corpuscular Volume 92.5 fl (85-98); Mean Platelet Volume 10.9 fL (7.4-10.4); Monocytes # 1.4 10^3/uL (0.2-0.9); Monocytes % 15.4 %; Neutrophils # 5.92 10^3/uL (1.8-7.7); Neutrophils % 65.7 %; Nucleated Red Blood Cells % 0 %; Platelet Count 193 10^3/cmm (157-399); Red Blood Count 4.02 10^6/uL (3.85-5.65); White Blood Count 9.02 10^3/uL (3.29-11.43)
[2024-04-21 10:46] VITALS: PULSE 63; O2SAT 96
[2024-04-21 11:04] LABS: Troponin(5th) Baseline 14 ng/L (0-10)
[2024-04-21 11:08] LABS: Alanine Aminotransferase 23 U/L (0-33); Albumin Level 4.1 g/dL (3.5-5.2); Alkaline Phosphatase 109 U/L (35-105); Anion Gap 15.7 (5-19); Aspartate Amino Transferase 19 U/L (0-32); Blood Urea Nitrogen 24 mg/dL (8-23); Calcium 10.5 mg/dL (8.5-10.5); Carbon Dioxide 29 mmol/L (22-29); Chloride 96 mmol/L (98-107); Creatinine Clr Calc Pharmacy 34.0128; Globulin 2.5 g/dL (1.3-4.6); Glucose 289 mg/dL (65-115); Magnesium 1.9 mg/dL (1.7-2.3); Osmolality Calculated 299 mOsm/kg (285-295); Potassium 3.7 mmol/L (3.5-5.1); Sodium 137 mmol/L (136-145); Total Bilirubin 0.5 mg/dL (0.15-1.2); Total Protein 6.6 g/dL (6.6-8.7)
[2024-04-21 11:16] VITALS: BP 150/67; PULSE 63; O2SAT 92
[2024-04-21 11:21] LABS: Bilirubin Urine Negative (Negative); Blood Urine Negative (Negative); Glucose Urine UA 2+ (Normal); Ketones Urine Negative (Negative); Leukocyte Esterase Urine Trace (Negative); Nitrate Urine Negative (Negative); Protein Urine Negative (Negative); Specific Gravity, Urine 1.009 (1.005-1.030); Urine Appearance Clear (CLEAR); Urine Color Yellow (Yellow); Urobilinogen Urine 0.2 mg/dL (Negative); pH Urine 6.5 (5-7)
[2024-04-21 11:24] LABS: Add Urine Microscopic? YES; Bacteria Urine None Seen /hpf; Hyaline Casts Urine 1.21 /lpf; RBC Urine 0-2 /hpf (0-2); Squamous Epithelial Cell Urine 0-5 /hpf (0-5); WBC Urine 0-5 /hpf (0-5)
[2024-04-21 11:29] LABS: Covid PCR NEGATIVE (Negative); Influenza A NEGATIVE (Negative); Influenza B NEGATIVE (Negative); Respiratory Syncytial Virus Ce NEGATIVE (Negative)
--- NOTE | 2024-04-21 11:46 | ED_ITS ---
HPI - Arrhythmia/Palpitations 2 General: Chief Complaint: Arrhythmia/Palpitations Stated Complaint: diarrhea, shacky all over, dizzy, heart racing Time Seen by Provider: 04/21/24 10:22 History of Present Illness: 78-year-old female who presents to the e mergency room with complaints of diarrhea feels shaky all over. Patient states she feels like her heart is quivering she denies any significant chest pain. She said she has had this quivering sensation intermittently for the last 2 days. She has a history of previous cardiac ablation. She has no fever sweats or chills she has no orthopnea no swelling in her legs. She has had some loose stools. No myalgias no headache. Related Data Home Medications Medication Instructions Recorded Confirmed furosemide 40 mg tablet 40 mg PO BID 05/29/19 04/21/24 magnesium 250 mg tablet 250 mg PO BID 05/29/19 04/21/24 montelukast 10 mg tablet 10 mg PO DAILY 05/29/19 04/21/24 (Singulair) warfarin 1 mg tablet 1 mg PO DIRECTED 08/15/19 04/21/24 pantoprazole 40 mg tablet,delayed 40 mg PO DAILY 01/13/21 04/21/24 release (Protonix) donepezil 5 mg tablet 5 mg PO DAILY 04/05/22 04/21/24 memantine 5 mg tablet 5 mg PO BID 02/01/23 04/21/24 prednisone 5 mg tablet 5 mg PO DAILY 02/01/23 04/21/24 atorvastatin 40 mg tablet 40 mg PO DAILY 01/10/24 04/21/24 citalopram 20 mg tablet 20 mg PO DAILY 01/10/24 04/21/24 loratadine 10 mg tablet 10 mg PO DAILY 01/10/24 04/21/24 losartan 25 mg tablet 25 mg PO DAILY 01/10/24 04/21/24 metolazone 5 mg tablet 5 mg PO DAILY PRN Edema 01/10/24 04/21/24 potassium chloride 20 mEq 20 meq PO BID 01/10/24 04/21/24 tablet,extended release(part/cryst) sotalol 120 mg tablet (Sotalol AF) 120 mg PO QPM 01/10/24 04/21/24 spironolactone 50 mg tablet 50 mg PO DAILY 01/10/24 04/21/24 warfarin 3 mg tablet See Rx Instructions .Route .COMPLEX 01/10/24 04/21/24 warfarin 4 mg tablet See Rx Instructions .Route .COMPLEX 01/10/24 04/21/24 albuterol sulfate 90 mcg/actuation 2 puff inhalation Q4H PRN 04/21/24 04/21/24 aerosol inhaler Shortness Of Breath fluticasone propionate 50 1 spray intranasal DAILY 04/21/24 04/21/24 mcg/actuation nasal spray,suspension levothyroxine 75 mcg tablet 75 mcg PO QAM 04/21/24 04/21/24 metformin 500 mg tablet,extended 500 mg PO BID 04/21/24 04/21/24 release 24 hr mometasone 0.1 % topical cream 1 applic topical PRN PRN Skin 04/21/24 04/21/24 Irritation sotalol 160 mg tablet (Sotalol AF) 160 mg PO QAM 04/21/24 04/21/24 Previous Rx's Medication Instructions Recorded warfarin 5 mg tablet See Rx Instructions .Route 03/01/21 .COMPLEX #90 tabs ASO brace #1 ea 03/28/22 Left [place] AFO brace #1 ea 06/06/22 Allergies Allergy/AdvReac Type Severity Reaction Status Date / Time adhesive tape Allergy ALGY-Rash Verified 02/22/24 13:50 Review of Systems 2 Const: Denies: fever(s) or chills Card: Reports: palpitations and irregular heart rhythm; Denies: chest pain Resp: Denies: dyspnea GI: Denies: abdominal pain : Denies: dysuria, urinary frequency or urinary urgency Musc: Denies: neck pain or back pain Skin/Breast: Denies: rash PFSH ED 2 PFSH: Medical History Carotid occlusion, bilateral GI bleed Anemia Concern of GI bleeding. Protonix 40 mg twice daily. Received 1 unit of blood. Repeat CBC as an outpatient. Stop Coumadin. Consider initiation of low-dose aspirin, on follow-up with primary Acute on chronic diastolic heart failure Improved compensation Diabetes mellitus type 2, noninsulin dependent Chronic kidney disease, stage IV (severe) Stable Hypothyroidism Congestive heart failure Chronic diastolic Hypertension Chronic anticoagulation Hypercholesteremia Valvular heart disease Atrial fibrillation History of endocardial and epicardial ablation, AV ervin ablation, maze procedure . Currently on Betapace 160 mg p.o. twice daily Surgical History S/P aortic valve replacement with bioprosthetic valve S/P mitral valve replacement with bioprosthetic valve History of open heart surgery Hx of cholecystectomy H/O prior ablation treatment History of hernia repair History of hysterectomy H/O esophagogastroduodenoscopy 06/17/2019: Gastric erosions, hiatal hernia Hx of colonoscopy Family History Father CAD (coronary artery disease) Brother CAD (coronary artery disease) Diabetes Mother Dementia Family/Other Lung disease Denies family history of Clotting disorder Chronic kidney disease (CKD) Suicide Anesthesia complication Bleeding disorder Cancer Stroke Social History Smoking and tobacco/nicotine status: never used tobacco/nicotine Second hand smoke exposure: No Alcohol intake: never Substance/Drug Use: never Adopted: No Caregiver/support person: Yes Lives independently: Yes Household members: spouse Housing: House Marital status: Highest education level completed: High School Graduate service: No Current occupational status: retired Current occupational exposures/hazards: No Pets and animals: No Sexually active: No Do you think of yourself as: Straight/Heterosexual Current gender identity: Female Danielle/Mosque: Zoroastrian Special danielle needs: No Agree to transfusion: No Physical Exam 2 Const: GENERAL APPEARANCE: cooperative ORIENTATION/CONSCIOUSNESS: Yes awake, Yes oriented to person, Yes oriented to place and Yes oriented to time HENMT: COMMON NORMALS: normocephalic, atraumatic and hearing grossly normal bilaterally HEAD & SCALP: normocephalic and atraumatic Resp: COMMON NORMALS: normal respiratory effort, No retractions, No use of accessory muscles and clear to auscultation bilaterally AUSCULTATION: clear to auscultation bilaterally Cardio: COMMON NORMALS: regular rate, regular rhythm and No murmurs present (Cardio) RATE: regular rate and bradycardic RHYTHM: regular rhythm GI: COMMON NORMALS: Soft to palpation and No hepatosplenomegaly present A USCULTATION: Yes normoactive bowel sounds PALPATION: Yes Soft to palpation, No Tenderness to palpation present (GI), No Guarding due to palpation present (GI) and Yes No hepatosplenomegaly present Extremity: COMMON NORMALS: normal to inspection, capillary refill normal, no clubbing, cyanosis or edema, no calf tenderness and no pedal edema Neuro: SENSORIUM/ORIENTATION: Yes oriented to person, Yes oriented to place and Yes oriented to time Skin: COMMON NORMALS: no rashes or lesions noted GENERAL SKIN EXAM: no rashes or lesions noted Course 2 Vital Signs: Vital signs: Vital Signs Temperature 97.7 F 04/21/24 10:10 Pulse Rate 65 04/21/24 13:50 Respiratory Rate 20 H 04/21/24 10:10 Blood Pressure 142/73 04/21/24 13:50 Pulse Oximetry 98 04/21/24 13:50 Oxygen Delivery Me thod Room Air 04/21/24 11:16 MDM - Arrhythmia/Palpitations Medical Decision Making Cardiac enzymes negative on the monitor here her rate was well-controlled she was mostly in a sinus rhythm. She states she is feeling little bit better at this point no acute findings noted will discharge her home set her up for an outpatient 72-hour Holter monitor and have her follow-up with cardiology clinic. Return if has changes symptoms. Medical Records I reviewed the patient's medical records. Lab Data I reviewed the patient's lab results. 04/21/24 10:32 04/21/24 10:32 Radiology Impressions Chest X-Ray 04/21/24 10:24 IMPRESSION: No acute findings. Stable cardiomegaly Laboratory Results WBC 9.02 10^3/uL (3.29-11.43) 04/21/24 10:32 RBC 4.02 10^6/uL (3.85-5.65) 04/21/24 10:32 Hgb 11.80 g/dL (11.27-16.99) 04/21/24 10:32 Hct 37.2 % (36-47) 04/21/24 10:32 MCV 92.5 fl (85-98) 04/21/24 10:32 MCH 29.4 pg (27-33) 04/21/24 10:32 MCHC 31.7 g/dL (30-55) 04/21/24 10:32 RDW 14.0 % (12.1-15.1) 04/21/24 10:32 Plt Count 193 10^3/cmm (157-399) 04/21/24 10:32 MPV 10.9 fL (7.4-10.4) H 04/21/24 10:32 Neut % (Auto) 65.7 % 04/21/24 10:32 Lymph % (Auto) 17.1 % 04/21/24 10:32 [place] % (Auto) 15.4 % 04/21/24 10:32 Eos % (Auto) 1.0 % 04/21/24 10:32 Baso % (Auto) 0.4 % 04/21/24 10:32 Neut # (Auto) 5.92 10^3/uL (1.8-7.7) 04/21/24 10:32 Lymph # (Auto) 1.5 10^3/uL (0.8-4.8) 04/21/24 10:32 [place] # (Auto) 1.4 10^3/uL (0.2-0.9) H 04/21/24 10:32 Eos # (Auto) 0.1 10^3/uL (0.0-0.8) 04/21/24 10:32 Baso # (Auto) 0.0 10^3/uL (0.0-0.1) 04/21/24 10:32 Nucleated RBC % (auto) 0 % 04/21/24 10:32 Nucleated RBCs # 0.0 /100WBC 04/21/24 10:32 PT 23.30 SECONDS (12.1-14.9) H 04/21/24 10:32 INR 1.99 (0.8-1.2) H 04/21/24 10:32 Sodium 137 mmol/L (136-145) 04/21/24 10:32 Potassium 3.7 mmol/L (3.5-5.1) 04/21/24 10:32 Chloride 96 mmol/L (98-107) L 04/21/24 10:32 Carbon Dioxide 29 mmol/L (22-29) 04/21/24 10:32 Anion Gap 15.7 (5-19) 04/21/24 10:32 BUN 24 mg/dL (8-23) H 04/21/24 10:32 Creatinine 1.6 mg/dL (0.5-0.9) H 04/21/24 10:32 GFR Calculation Not Reportable 04/21/24 10:32 Glucose 289 mg/dL (65-115) H 04/21/24 10:32 Calculated Osmolality 299 mOsm/kg (285-295) H 04/21/24 10:32 Calcium 10.5 mg/dL (8.5-10.5) 04/21/24 10:32 Magnesium 1.9 mg/dL (1.7-2.3) 04/21/24 10:32 Total Bilirubin 0.5 mg/dL (0.15-1.2) 04/21/24 10:32 AST 19 U/L (0-32) 04/21/24 10:32 ALT 23 U/L (0-33) 04/21/24 10:32 Alkaline Phosphatase 109 U/L (35-105) H 04/21/24 10:32 Troponin T Baseline 14 ng/L (0-10) H 04/21/24 10:32 Troponin T 120 Minute 13.90 ng/L (0-10) H 04/21/24 12:21 Delta Troponin T -0.10 ABS# (0-10) L 04/21/24 12:21 Total Protein 6.6 g/dL (6.6-8.7) 04/21/24 10:32 Albumin 4.1 g/dL (3.5-5.2) 04/21/24 10:32 Globulin 2.5 g/dL (1.3-4.6) 04/21/24 10:32 Urine Color Yellow (Yellow) 04/21/24 11:00 Urine Appearance Clear (CLEAR) 04/21/24 11:00 Urine pH 6.5 (5-7) 04/21/24 11:00 Ur Specific [place] 1.009 (1.005-1.030) 04/21/24 11:00 Urine Protein Negative (Negative) 04/21/24 11:00 Urine Glucose (UA) 2+ (Normal) H 04/21/24 11:00 Urine Ketones Negative (Negative) 04/21/24 11:00 Urine Blood Negative (Negative) 04/21/24 11:00 Urine Nitrate Negative (Negative) 04/21/24 11:00 Urine Bilirubin Negative (Negative) 04/21/24 11:00 Urine Urobilinogen 0.2 mg/dL (Negative) 04/21/24 11:00 Ur Leukocyte Esterase Trace (Negative) A 04/21/24 11:00 Urine RBC 0-2 /hpf (0-2) 04/21/24 11:00 Urine WBC 0-5 /hpf (0-5) 04/21/24 11:00 Ur Squamous Epith Cells 0-5 /hpf (0-5) 04/21/24 11:00 Amorphous Sediment Not Reportable 04/21/24 11:00 Urine Bacteria None seen /hpf (NONE) 04/21/24 11:00 Hyaline Casts 1.21 /lpf 04/21/24 11:00 Coronavirus (PCR) Negative (Negative) 04/21/24 10:45 Influenza A (PCR) Negative (Negative) 04/21/24 10:45 Influenza Type B (PCR) Negative (Negative) 04/21/24 10:45 RSV (PCR) Negative (Negative) 04/21/24 10:45 All radiology interpretation(s) finalized by discharge Discharge Plan Discharge Patient Disposition: Home Clinical Impression: Atrial fibrillation Qualifiers: Atrial fibrillation type: longstanding persistent Qualified Code(s): I48.11 - Longstanding persistent atrial fibrillation Condition: Stable Prescriptions: No Action montelukast [Singulair] 10 mg tablet 10 mg PO DAILY magnesium 250 mg tablet 250 mg PO BID furosemide 40 mg tablet 40 mg PO BID pantoprazole [Protonix] 40 mg tablet,delayed release (DR/EC) 40 mg PO DAILY donepezil 5 mg tablet 5 mg PO DAILY (DME) [facility] bra 9 See Rx Instructions .Route .MEDSUPPLY Qty: 1 0RF Rx Instructions: As directed (DME) [facility] See Rx Instructions .Route .MEDSUPPLY Qty: 1 0RF Rx Instructions: As directed prednisone 5 mg tablet 5 mg PO DAILY memantine 5 mg tablet 5 mg PO BID warfarin 1 mg tablet 1 mg PO DIRECTED Protocol: Dose Management Condition: Monday Dose/Route: 4 mg Instruction: 1 x 4 mg tablet Condition: Monday Dose/Route: 3 mg Instruction: 1 x 3 mg tablet Condition: Monday Dose/Route: 4 mg Instruction: 1 x 4 mg tablet Condition: Monday Dose/Route: 3 mg Instruction: 1 x 3 mg tablet Condition: Dose/Route: 4 mg Instruction: 1 x 4 mg tablet Condition: Monday Dose/Route: 3 mg Instruction: 1 x 3 mg tablet Condition: Monday Dose/Route: 4 mg Instruction: 1 x 4 mg tablet Protocol Text: Adjustment Start Date: Monday04/15/24 INR Value: 2.3 INR Date: 04/15/24 Recheck Date: 04/22/24 Rx Instructions: Take 1 tablet by mouth on Monday, , Monday and Monday. warfarin 5 mg tablet See Rx Instructions .ROUTE .COMPLEX Qty: 90 3RF Protocol: Dose Management Condition: Monday Dose/Route: 4 mg Instruction: 1 x 4 mg tablet Condition: Monday Dose/Route: 3 mg Instruction: 1 x 3 mg tablet Condition: Monday Dose/Route: 4 mg Instruction: 1 x 4 mg tablet Condition: Monday Dose/Route: 3 mg Instruction: 1 x 3 mg tablet Condition: Dose/Route: 4 mg Instruction: 1 x 4 mg tablet Condition: Monday Dose/Route: 3 mg Instruction: 1 x 3 mg tablet Condition: Monday Dose/Route: 4 mg Instruction: 1 x 4 mg tablet Protocol Text: Adjustment Start Date: Monday04/15/24 INR Value: 2.3 INR Date: 04/15/24 Recheck Date: 04/22/24 Dose Instruction: TAKE 1 TABLET EVERY DAY DIRECTED Rx Instructions: TAKE 1 TABLET EVERY DAY DIRECTED metolazone 5 mg tablet 5 mg PO DAILY PRN (Reason: Edema) citalopram 20 mg tablet 20 mg PO DAILY loratadine 10 mg tablet 10 mg PO DAILY atorvastatin 40 mg tablet 40 mg PO DAILY sotalol [Sotalol AF] 120 mg tablet 120 mg PO QPM warfarin 4 mg tablet See Rx Instructions .ROUTE .COMPLEX Protocol: Dose Management Condition: Monday Dose/Route: 4 mg Instruction: 1 x 4 mg tablet Condition: Monday Dose/Route: 3 mg Instruction: 1 x 3 mg tablet Condition: Monday Dose/Route: 4 mg Instruction: 1 x 4 mg tablet Condition: Monday Dose/Route: 3 mg Instruction: 1 x 3 mg tablet Condition: Dose/Route: 4 mg Instruction: 1 x 4 mg tablet Condition: Monday Dose/Route: 3 mg Instruction: 1 x 3 mg tablet Condition: Monday Dose/Route: 4 mg Instruction: 1 x 4 mg tablet Protocol Text: Adjustment Start Date: Monday04/15/24 INR Value: 2.3 INR Date: 04/15/24 Recheck Date: 04/22/24 Rx Instructions: TAKE 1 TABLET BY MOUTH ON MONDAY, MONDAY, MONDAY, AND MONDAY. warfarin 3 mg tablet See Rx Instructions .ROUTE .COMPLEX Protocol: Dose Management Condition: Monday Dose/Route: 4 mg Instruction: 1 x 4 mg tablet Condition: Monday Dose/Route: 3 mg Instruction: 1 x 3 mg tablet Condition: Monday Dose/Route: 4 mg Instruction: 1 x 4 mg tablet Condition: Monday Dose/Route: 3 mg Instruction: 1 x 3 mg tablet Condition: Dose/Route: 4 mg Instruction: 1 x 4 mg tablet Condition: Monday Dose/Route: 3 mg Instruction: 1 x 3 mg tablet Condition: Monday Dose/Route: 4 mg Instruction: 1 x 4 mg tablet Protocol Text: Adjustment Start Date: Monday04/15/24 INR Value: 2.3 INR Date: 04/15/24 Recheck Date: 04/22/24 Rx Instructions: TAKE 1 TABLET BY MOUTH ON MONDAY, MONDAY, AND MONDAY. potassium chloride 20 mEq tablet,ER particles/crystals 20 meq PO BID losartan 25 mg tablet 25 mg PO DAILY spironolactone 50 mg tablet 50 mg PO DAILY levothyroxine 75 mcg tablet 75 mcg PO QAM metformin 500 mg tablet extended release 24 hr 500 mg PO BID sotalol [Sotalol AF] 160 mg tablet 160 mg PO QAM albuterol sulfate 90 mcg/actuation HFA aerosol inhaler 2 puff INHALATION Q4H PRN (Reason: Shortness Of Breath) fluticasone propionate 50 mcg/actuation spray,suspension 1 spray INTRANASAL DAILY mometasone 0.1 % cream 1 applic TOPICAL PRN PRN (Reason: Skin Irritation) Discharge Orders: Discharge ED (Routine); Ordered 04/21/24 Ordered By: Shaun Juarez Referrals: Pankaj Dela Cruz MD [Primary Care Provider] - Discharge Diet: Cardiac and Low Salt Discharge Activity: Increase activity as tolerated Patient Instructions: Opioid Safety, Pain Management Activity Restrictions/Additional Instructions: Thank you for choosing [facility] for your healthcare needs today. It is very important that you follow up as instructed or that you return to the Emergency Department should you have concerns or if your condition changes or worsens in any way. You are seen today with complaints of palpitations EKG showed a sinus bradycardia intermittent atrial fibrillation. He did not have any rapid heart rates or abnormal rhythms while you are in the emergency room cardiac enzymes were normal. EKG does not show any acute changes. Recommend that you continue current medications and follow-up with with your primary care doctor in the next 1 to 2 weeks. Will set you up for a 72-hour Holter monitor to evaluate for any breakthrough atrial fibrillation episodes. Coding Level of Care Code ED Service And Repair Supervisor for Chema Yost
[2024-04-21 11:59] LABS: INR 1.99 (0.8-1.2)
--- NOTE | 2024-04-21 12:28 | ECG_ITS ---
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
[2024-04-21 13:49] VITALS: BP 142/73; PULSE 65; O2SAT 98
[2024-04-21 13:50] VITALS: BP 142/73; PULSE 65; O2SAT 98
--- NOTE | 2024-04-22 07:53 | DCPLANNER ---
messaged heart/lung for er f/u
== END 2024-04-21 13:53 | disposition home or self-care (01) ==
PROVIDERS: Emergency Provider Family Medicine; PCP Family Medicine
DX: I48.11 Longstanding persistent atrial fibrillation (principal); Z79.01 Long term (current) use of anticoagulants; Z11.52 Encounter for screening for COVID-19; E11.22 Type 2 diabetes mellitus with diabetic chronic kidney disease; I13.0 Hypertensive heart and chronic kidney disease with heart failure and stage 1 through stage 4 chronic kidney disease, or unspecified chronic kidney disease; N18.4 Chronic kidney disease, stage 4 (severe); I50.32 Chronic diastolic (congestive) heart failure
CPT/HCPCS: 0241U; 36415; 71045; 80053; 81001; 83735; 84484; 85025; 85610; 93005; 99285

== ENCOUNTER 2024-07-04 03:24 | Inpatient (IN) | payer MEDICARE, SELFPAY ==
[2024-07-04] VITALS (15 sets, daily range): BP systolic 118–177; BP diastolic 48–81; PULSE 70–96; RESP 15–27; TEMP 36.4–37.4; O2SAT 86–96; BMI 40.0
--- NOTE | 2024-07-04 03:36 | XRR_ITS ---
PROCEDURE INFORMATION: Exam: XR Chest Exam date and time: 07/04/2024 3:38 AM Age: 79 years old Clinical indication: Cough and fever; Prior surgery; Surgery date: 6+ months; Surgery type: Aortic and mitral valves; Additional info: Hypoxia flulike symptoms TECHNIQUE: Imaging protocol: Radiologic exam of the chest. Views: 1 view. COMPARISON: CR XR chest 1V portable [id number] 04/21/2024 10:31 AM FINDINGS: Lungs: Basilar infiltrates, suggestion of higher severity in the retrocardiac/left lower lobe region. Prominent left hilum which is new from prior comparison. Pleural spaces: Unremarkable. No pleural effusion. No pneumothorax. Heart/Mediastinum: Presumed large hiatal hernia, stable from prior comparison. Postprocedural change of the heart, stable. Cardiomegaly. Vasculature: Atherosclerotic disease of the aortic arch. Bones/joints: Status post sternotomy. XR/XR chest 1V portable [id number] IMPRESSION: 1. Mild increase in cardiomegaly, as well as, what appears to be possible increased pulmonary aortic diameter given the prominence of the left hilum, could indicate some degree of acute worsening cardiac dysfunction. Consider CT angiogram, echocardiogram for further assessment. 2. Basilar infiltrates, somewhat worse on the left than with the right. No focal consolidation. 3. Hiatal hernia.
--- NOTE | 2024-07-04 04:02 | W.ED.URI ---
Documented by User: Luis Armando Stanford DO 07/04/24 04:04 HPI - URI/Sore Throat General: Chief Complaint: Upper Respiratory Infection Stated Complaint: Flu Like Sym Time Seen by Provider: 07/04/24 03:31 History of Present Illness: Patient presents to the ER with complaints of flulike symptoms, headache shortness of breath congestion sore throat diarrhea nausea vomiting this all started yesterday morning. Patient has been around someone with the flu. Her daughter has influenza. Patient normally does not wear oxygen but she said her oxygen usually runs low. Patient has and albuterol inhaler fluticasone nasal spray and Singulair at home. Related Data Home Medications ?Medication ?Instructions ?Recorded ?Confirmed furosemide 40 mg tablet 40 mg PO BID 05/29/19 04/21/24 magnesium 250 mg tablet 250 mg PO BID 05/29/19 04/21/24 montelukast 10 mg tablet 10 mg PO DAILY 05/29/19 04/21/24 (Singulair) warfarin 1 mg tablet 1 mg PO DIRECTED 08/15/19 05/27/24 pantoprazole 40 mg tablet,delayed 40 mg PO DAILY 01/13/21 04/21/24 release (Protonix) donepezil 5 mg tablet 5 mg PO DAILY 04/05/22 04/21/24 memantine 5 mg tablet 5 mg PO BID 02/01/23 04/21/24 prednisone 5 mg tablet 5 mg PO DAILY 02/01/23 04/21/24 atorvastatin 40 mg tablet 40 mg PO DAILY 01/10/24 04/21/24 citalopram 20 mg tablet 20 mg PO DAILY 01/10/24 04/21/24 loratadine 10 mg tablet 10 mg PO DAILY 01/10/24 04/21/24 losartan 25 mg tablet 25 mg PO DAILY 01/10/24 04/21/24 metolazone 5 mg tablet 5 mg PO DAILY PRN Edema 01/10/24 04/21/24 potassium chloride 20 mEq 20 meq PO BID 01/10/24 04/21/24 tablet,extended release(part/cryst) sotalol 120 mg tablet (Sotalol AF) 120 mg PO QPM 01/10/24 04/21/24 spironolactone 50 mg tablet 50 mg PO DAILY 01/10/24 04/21/24 warfarin 3 mg tablet See Rx Instructions .Route .COMPLEX 01/10/24 05/27/24 warfarin 4 mg tablet See Rx Instructions .Route .COMPLEX 01/10/24 05/27/24 albuterol sulfate 90 mcg/actuation 2 puff inhalation Q4H PRN 04/21/24 04/21/24 aerosol inhaler Shortness Of Breath fluticasone propionate 50 1 spray intranasal DAILY 04/21/24 04/21/24 mcg/actuation nasal spray,suspension levothyroxine 75 mcg tablet 75 mcg PO QAM 04/21/24 04/21/24 metformin 500 mg tablet,extended 500 mg PO BID 04/21/24 04/21/24 release 24 hr mometasone 0.1 % topical cream 1 applic topical PRN PRN Skin 04/21/24 04/21/24 Irritation sotalol 160 mg tablet (Sotalol AF) 160 mg PO QAM 04/21/24 04/21/24 Previous Rx's ?Medication ?Instructions ?Recorded warfarin 5 mg tablet See Rx Instructions .Route 03/01/21 .COMPLEX #90 tabs ASO brace #1 ea 03/28/22 Left [place] AFO brace #1 ea 06/06/22 Allergies Allergy/AdvReac Type Severity Reaction Status Date / Time adhesive tape Allergy ALGY-Rash Verified 02/22/24 13:50 Review of Systems General: Reports: 10 or more systems reviewed and unremarkable except in HPI and below PFSH ED PFSH: Medical History Carotid occlusion, bilateral GI bleed Anemia Concern of GI bleeding. Protonix 40 mg twice daily. Received 1 unit of blood. Repeat CBC as an outpatient. Stop Coumadin. Consider initiation of low-dose aspirin, on follow-up with primary Acute on chronic diastolic heart failure Improved compensation Diabetes mellitus type 2, noninsulin dependent Chronic kidney disease, stage IV (severe) Stable Hypothyroidism Congestive heart failure Chronic diastolic Hypertension Chronic anticoagulation Hypercholesteremia Valvular heart disease Atrial fibrillation History of endocardial and epicardial ablation, AV ervin ablation, maze procedure . Currently on Betapace 160 mg p.o. twice daily Surgical History S/P aortic valve replacement with bioprosthetic valve S/P mitral valve replacement with bioprosthetic valve History of open heart surgery Hx of cholecystectomy H/O prior ablation treatment History of hernia repair History of hysterectomy H/O esophagogastroduodenoscopy 06/17/2019: Gastric erosions, hiatal hernia Hx of colonoscopy Family History Father CAD (coronary artery disease) Brother CAD (coronary artery disease) Diabetes Mother Dementia Family/Other Lung disease Denies family history of Clotting disorder Chronic kidney disease (CKD) Suicide Anesthesia complication Bleeding disorder Cancer Stroke Social History Smoking and tobacco/nicotine status: never used tobacco/nicotine Second hand smoke exposure: No Alcohol intake: never Substance/Drug Use: never Adopted: No Caregiver/support person: Yes Lives independently: Yes Household members: spouse Housing: House Marital status: Highest education level completed: High School Graduate service: No Current occupational status: retired Current occupational exposures/hazards: No Pets and animals: No Sexually active: No Do you think of yourself as: Straight/Heterosexual Current gender identity: Female Danielle/Rastafari: Mandaen Special danielle needs: No Agree to transfusion: No Physical Exam Const: COMMON NORMALS: no acute distress, average body habitus, patient oriented x3, no limitations, healthy appearing, alert and well nourished HENMT: COMMON NORMALS: normocephalic, atraumatic, hearing grossly normal bilaterally, external ears normal and Normal external nose present HEAD & SCALP: normocephalic and atraumatic NOSE: Normal external nose present EXTERNAL EAR: Yes external ears normal Neck/C-Spine: COMMON NORMALS: full ROM, no lymphadenopathy, supple, no meningeal signs, no JVD and Thyroid normal THYROID: Thyroid normal Chest: COMMONS NORMALS: normal inspection of the chest and normal palpation of entire chest wall Resp: COMMON NORMALS: normal respiratory effort, No retractions and No use of accessory muscles; negative for clear to auscultation bilaterally (Occasional wheeze bilaterally otherwise clear) AUSCULTATION: not clear to auscultation bilaterally (Occasional wheeze bilaterally otherwise clear) Cardio: COMMON NORMALS: no JVD, regular rate, regular rhythm, S1 normal heart sound present, S2 normal heart sound present, No gallops present (Cardio), No clicks present (Cardio), No murmurs present (Cardio) and No rub (Cardio) RATE: regular rate RHYTHM: regular rhythm HEART SOUNDS: S1 normal heart sound present and S2 normal heart sound present GI: COMMON NORMALS: Normal to inspection, nondistended, normoactive bowel sounds present, Soft to palpation, non-tender, No hepatosplenomegaly present and no masses PALPATION: Yes Soft to palpation and Yes No hepatosplenomegaly present Neuro: COMMON NORMALS: patient oriented x3 SENSORIUM/ORIENTATION: Yes alert MENINGEAL SIGNS: Yes no meningeal signs Course Vital Signs: Vital signs: Vital Signs Temperature 98.0 F 07/04/24 03:27 Pulse Rate 82 07/04/24 06:07 Respiratory Rate 20 H 07/04/24 04:35 Blood Pressure 154/67 07/04/24 06:07 Pulse Oximetry 95 07/04/24 06:07 Oxygen Delivery Me thod Nasal Cannula 07/04/24 06:07 Oxygen Flow Rate 2.5 07/04/24 06:07 MDM - URI/Sore Throat Medical Records I reviewed the patient's medical records. Lab Data I reviewed the patient's lab results. 07/04/24 04:29 07/04/24 04:29 Radiology Impressions Chest X-Ray 07/04/24 03:36 IMPRESSION: 1. Mild increase in cardiomegaly, as well as, what appears to be possible increased pulmonary aortic diameter given the prominence of the left hilum, could indicate some degree of acute worsening cardiac dysfunction. Consider CT angiogram, echocardiogram for further assessment. 2. Basilar infiltrates, somewhat worse on the left than with the right. No focal consolidation. 3. Hiatal hernia. Laboratory Results WBC 14.62 10^3/uL (3.29-11.43) H 07/04/24 04:29 RBC 3.96 10^6/uL (3.85-5.65) 07/04/24 04:29 Hgb 11.20 g/dL (11.27-16.99) L 07/04/24 04:29 Hct 36.4 % (36-47) 07/04/24 04:29 MCV 91.9 fl (85-98) 07/04/24 04:29 MCH 28.3 pg (27-33) 07/04/24 04:29 MCHC 30.8 g/dL (30-55) 07/04/24 04: RDW 14.8 % (12.1-15.1) 07/04/24 04: Plt Count 190 10^3/cmm (157-399) 07/04/24 04: MPV 10.8 fL (7.4-10.4) H 07/04/24 04: Neut % (Auto) 81.0 % 07/04/24 04: Lymph % (Auto) 4.4 % 07/04/24 04: Howard % (Auto) 12.8 % 07/04/24 04: Eos % (Auto) 1.2 % 07/04/24 04: Baso % (Auto) 0.2 % 07/04/24 04: Neut # (Auto) 11.85 10^3/uL (1.8-7.7) H 07/04/24 04: Lymph # (Auto) 0.6 10^3/uL (0.8-4.8) L 07/04/24 04: Howard # (Auto) 1.9 10^3/uL (0.2-0.9) H 07/04/24 04: Eos # (Auto) 0.2 10^3/uL (0.0-0.8) 07/04/24 04: Baso # (Auto) 0.0 10^3/uL (0.0-0.1) 07/04/24 04: Nucleated RBC % (auto) 0 % 07/04/24 04: Nucleated RBCs # 0.0 /100WBC 07/04/24 04: PT 22.80 SECONDS (12.1-14.9) H 07/04/24 04:29 INR 1.88 (0.8-1.2) H 07/04/24 04:29 Sodium 137 mmol/L (136-145) 07/04/24 04: Potassium 4.0 mmol/L (3.5-5.1) 07/04/24 04: Chloride 95 mmol/L (98-107) L 07/04/24 04: Carbon Dioxide 29 mmol/L (22-29) 07/04/24 04: Anion Gap 17.0 (5-19) 07/04/24 04: BUN 24 mg/dL (8-23) H 07/04/24 04:29 Creatinine 1.7 mg/dL (0.5-0.9) H 07/04/24 04:29 GFR Calculation Not Reportable 07/04/24 04:29 Glucose 277 mg/dL (65-115) H 07/04/24 04:29 Calculated Osmolality 298 mOsm/kg (285-295) H 07/04/24 04:29 Lactic Acid 1.8 mmol/L (0.5-2.2) 07/04/24 04:29 Calcium 10.0 mg/dL (8.5-10.5) 07/04/24 04:29 Total Bilirubin 0.8 mg/dL (0.15-1.2) 07/04/24 04:29 AST 18 U/L (0-32) 07/04/24 04:29 ALT 21 U/L (0-33) 07/04/24 04:29 Alkaline Phosphatase 111 U/L (35-105) H 07/04/24 04:29 Troponin T Baseline 11 ng/L (0-10) H 07/04/24 04:29 NT-Pro-B Natriuret Pep 490 pg/mL (0-450) H 07/04/24 04:29 Total Protein 7.1 g/dL (6.6-8.7) 07/04/24 04:29 Albumin 3.9 g/dL (3.5-5.2) 07/04/24 04:29 Globulin 3.2 g/dL (1.3-4.6) 07/04/24 04:29 Coronavirus (PCR) Positive (Negative) A 07/04/24 03:35 Influenza A (PCR) Positive (Negative) 07/04/24 03:35 Influenza Type B (PCR) Negative (Negative) 07/04/24 03:35 RSV (PCR) Negative (Negative) 07/04/24 03:35 Group A Strep Rapid Negative (Negative) 07/04/24 04:49 All radiology interpretation(s) finalized by discharge Discharge Plan Discharge Patient Disposition: Admitted As Inpatient Admit Provider: Myrna Bowden Clinical Impression: Acute on chronic diastolic heart failure, Chronic kidney disease, stage IV (severe), Diabetes mellitus type 2, noninsulin dependent, S/P mitral valve replacement with bioprosthetic valve, S/P aortic valve replacement with bioprosthetic valve, Chronic anticoagulation, Influenza, COVID-19, Pulmonary HTN, Pneumonia Atrial fibrillation Qualifiers: Atrial fibrillation type: longstanding persistent Qualified Code(s): I48.11 - Longstanding persistent atrial fibrillation Condition: Stable Sign Out Sign Out Data: Patient Sign Out occurred on 07/04/24 at 05:17. Patient's care was discussed, and care was transferred from Luis Armando Stanford DO to Shaun Juarez DO. Coding Level of Care Code ED Information Resources Director for [facility] Documented by User: Shaun Juarez DO 07/04/24 06:19 HPI - URI/Sore Throat General: Chief Complaint: Upper Respiratory Infection Stated Complaint: Flu Like Sym Time Seen by Provider: 07/04/24 03:31 Related Data Home Medications ?Medication ?Instructions ?Recorded ?Confirmed furosemide 40 mg tablet 40 mg PO BID 05/29/19 04/21/24 magnesium 250 mg tablet 250 mg PO BID 05/29/19 04/21/24 montelukast 10 mg tablet 10 mg PO DAILY 05/29/19 04/21/24 (Singulair) warfarin 1 mg tablet 1 mg PO DIRECTED 08/15/19 05/27/24 pantoprazole 40 mg tablet,delayed 40 mg PO DAILY 01/13/21 04/21/24 release (Protonix) donepezil 5 mg tablet 5 mg PO DAILY 04/05/22 04/21/24 memantine 5 mg tablet 5 mg PO BID 02/01/23 04/21/24 prednisone 5 mg tablet 5 mg PO DAILY 02/01/23 04/21/24 atorvastatin 40 mg tablet 40 mg PO DAILY 01/10/24 04/21/24 citalopram 20 mg tablet 20 mg PO DAILY 01/10/24 04/21/24 loratadine 10 mg tablet 10 mg PO DAILY 01/10/24 04/21/24 losartan 25 mg tablet 25 mg PO DAILY 01/10/24 04/21/24 metolazone 5 mg tablet 5 mg PO DAILY PRN Edema 01/10/24 04/21/24 potassium chloride 20 mEq 20 meq PO BID 01/10/24 04/21/24 tablet,extended release(part/cryst) sotalol 120 mg tablet (Sotalol AF) 120 mg PO QPM 01/10/24 04/21/24 spironolactone 50 mg tablet 50 mg PO DAILY 01/10/24 04/21/24 warfarin 3 mg tablet See Rx Instructions .Route .COMPLEX 01/10/24 05/27/24 warfarin 4 mg tablet See Rx Instructions .Route .COMPLEX 01/10/24 05/27/24 albuterol sulfate 90 mcg/actuation 2 puff inhalation Q4H PRN 04/21/24 04/21/24 aerosol inhaler Shortness Of Breath fluticasone propionate 50 1 spray intranasal DAILY 04/21/24 04/21/24 mcg/actuation nasal spray,suspension levothyroxine 75 mcg tablet 75 mcg PO QAM 04/21/24 04/21/24 metformin 500 mg tablet,extended 500 mg PO BID 04/21/24 04/21/24 release 24 hr mometasone 0.1 % topical cream 1 applic topical PRN PRN Skin 04/21/24 04/21/24 Irritation sotalol 160 mg tablet (Sotalol AF) 160 mg PO QAM 04/21/24 04/21/24 Previous Rx's ?Medication ?Instructions ?Recorded warfarin 5 mg tablet See Rx Instructions .Route 03/01/21 .COMPLEX #90 tabs [facility] brace #1 ea 03/28/22 [facility] [place] brace #1 ea 06/06/22 Allergies Allergy/AdvReac Type Severity Reaction Status Date / Time adhesive tape Allergy ALGY-Rash Verified 02/22/24 13:50 [facility] ED PFS: Medical History Carotid occlusion, bilateral GI bleed Anemia Concern of GI bleeding. Protonix 40 mg twice daily. Received 1 unit of blood. Repeat CBC as an outpatient. Stop Coumadin. Consider initiation of low-dose aspirin, on follow-up with primary Acute on chronic diastolic heart failure Improved compensation Diabetes mellitus type 2, noninsulin dependent Chronic kidney disease, stage IV (severe) Stable Hypothyroidism Congestive heart failure Chronic diastolic Hypertension Chronic anticoagulation Hypercholesteremia Valvular heart disease Atrial fibrillation History of endocardial and epicardial ablation, AV ervin ablation, maze procedure . Currently on Betapace 160 mg p.o. twice daily Surgical History S/P aortic valve replacement with bioprosthetic valve S/P mitral valve replacement with bioprosthetic valve History of open heart surgery Hx of cholecystectomy H/O prior ablation treatment History of hernia repair History of hysterectomy H/O esophagogastroduodenoscopy 06/17/2019: Gastric erosions, hiatal hernia Hx of colonoscopy Family History Father CAD (coronary artery disease) Brother CAD (coronary artery disease) Diabetes Mother Dementia Family/Other Lung disease Denies family history of Clotting disorder Chronic kidney disease (CKD) Suicide Anesthesia complication Bleeding disorder Cancer Stroke Social History Smoking and tobacco/nicotine status: never used tobacco/nicotine Second hand smoke exposure: No Alcohol intake: never Substance/Drug Use: never Adopted: No Caregiver/support person: Yes Lives independently: Yes Household members: spouse Housing: House Marital status: Highest education level completed: High School Graduate service: No Current occupational status: retired Current occupational exposures/hazards: No Pets and animals: No Sexually active: No Do you think of yourself as: Straight/Heterosexual Current gender identity: Female Danielle/Rastafari: Mandaen Special danielle needs: No Agree to transfusion: No Course Vital Signs: Vital signs: Vital Signs Temperature 98.0 F 07/04/24 03:27 Pulse Rate 82 07/04/24 06:07 Respiratory Rate 20 H 07/04/24 04:35 Blood Pressure 154/67 07/04/24 06:07 Pulse Oximetry 95 07/04/24 06:07 Oxygen Delivery Me thod Nasal Cannula 07/04/24 06:07 Oxygen Flow Rate 2.5 07/04/24 06:07 MDM - URI/Sore Throat Medical Decision Making Care assumed at change of shift. Patient fluid COVID-positive additionally she appears to have worsening congestive heart failure she has diastolic dysfunction that has been documented in the past. Cardiomegaly is noticeably more prominent today than it was previously. Previous echocardiogram showed pulmonary hypertension with an EF of 70% and grade 3 diastolic dysfunction. She has chronic kidney disease that is mildly worsened from previous. On her chest x-ray there is question of bilateral basilar infiltrates. She also mentioned that she had some chest discomfort that predated the onset of her cough yesterday. EKG and troponin series ordered. She is not requiring 2 L nasal cannula that she normally does not at home. Lactic acid is normal cultures have been ordered. Will also try to get a sputum culture from her. Discussed Dr. Bowden will admit for acute on chronic diastolic congestive heart failure COVID influenza hypoxia likely secondary pneumonia pulmonary hypertension. Lab Data 07/04/24 04:29 07/04/24 04:29 Radiology Impressions Chest X-Ray 07/04/24 03:36 IMPRESSION: 1. Mild increase in cardiomegaly, as well as, what appears to be possible increased pulmonary aortic diameter given the prominence of the left hilum, could indicate some degree of acute worsening cardiac dysfunction. Consider CT angiogram, echocardiogram for further assessment. 2. Basilar infiltrates, somewhat worse on the left than with the right. No focal consolidation. 3. Hiatal hernia. Laboratory Results WBC 14.62 10^3/uL (3.29-11.43) H 07/04/24 04:29 RBC 3.96 10^6/uL (3.85-5.65) 07/04/24 04:29 Hgb 11.20 g/dL (11.27-16.99) L 07/04/24 04:29 Hct 36.4 % (36-47) 07/04/24 04:29 MCV 91.9 fl (85-98) 07/04/24 04:29 MCH 28.3 pg (27-33) 07/04/24 04:29 MCHC 30.8 g/dL (30-55) 07/04/24 04:29 RDW 14.8 % (12.1-15.1) 07/04/24 04:29 Plt Count 190 10^3/cmm (157-399) 07/04/24 04:29 MPV 10.8 fL (7.4-10.4) H 07/04/24 04:29 Neut % (Auto) 81.0 % 07/04/24 04:29 Lymph % (Auto) 4.4 % 07/04/24 04:29 Howard % (Auto) 12.8 % 07/04/24 04: Eos % (Auto) 1.2 % 07/04/24 04: Baso % (Auto) 0.2 % 07/04/24 04:29 Neut # (Auto) 11.85 10^3/uL (1.8-7.7) H 07/04/24 04: Lymph # (Auto) 0.6 10^3/uL (0.8-4.8) L 07/04/24 04:29 Howard # (Auto) 1.9 10^3/uL (0.2-0.9) H 07/04/24 04: Eos # (Auto) 0.2 10^3/uL (0.0-0.8) 07/04/24 04: Baso # (Auto) 0.0 10^3/uL (0.0-0.1) 07/04/24 04: Nucleated RBC % (auto) 0 % 07/04/24 04: Nucleated RBCs # 0.0 /100WBC 07/04/24 04: PT 22.80 SECONDS (12.1-14.9) H 07/04/24 04: INR 1.88 (0.8-1.2) H 07/04/24 04: Sodium 137 mmol/L (136-145) 07/04/24 04: Potassium 4.0 mmol/L (3.5-5.1) 07/04/24 04: Chloride 95 mmol/L (98-107) L 07/04/24 04: Carbon Dioxide 29 mmol/L (22-29) 07/04/24 04:29 Anion Gap 17.0 (5-19) 07/04/24 04:29 BUN 24 mg/dL (8-23) H 07/04/24 04:29 Creatinine 1.7 mg/dL (0.5-0.9) H 07/04/24 04:29 GFR Calculation Not Reportable 07/04/24 04: Glucose 277 mg/dL (65-115) H 07/04/24 04:29 Calculated Osmolality 298 mOsm/kg (285-295) H 07/04/24 04:29 Lactic Acid 1.8 mmol/L (0.5-2.2) 07/04/24 04:29 Calcium 10.0 mg/dL (8.5-10.5) 07/04/24 04:29 Total Bilirubin 0.8 mg/dL (0.15-1.2) 07/04/24 04:29 AST 18 U/L (0-32) 07/04/24 04:29 ALT 21 U/L (0-33) 07/04/24 04:29 Alkaline Phosphatase 111 U/L (35-105) H 07/04/24 04:29 Troponin T Baseline 11 ng/L (0-10) H 07/04/24 04:29 NT-Pro-B Natriuret Pep 490 pg/mL (0-450) H 07/04/24 04:29 Total Protein 7.1 g/dL (6.6-8.7) 07/04/24 04:29 Albumin 3.9 g/dL (3.5-5.2) 07/04/24 04:29 Globulin 3.2 g/dL (1.3-4.6) 07/04/24 04:29 Coronavirus (PCR) Positive (Negative) A 07/04/24 03:35 Influenza A (PCR) Positive (Negative) 07/04/24 03:35 Influenza Type B (PCR) Negative (Negative) 07/04/24 03:35 RSV (PCR) Negative (Negative) 07/04/24 03:35 Group A Strep Rapid Negative (Negative) 07/04/24 04:49 EKG Data EKG 1: Interpretation: EKG 2024-10-29 sinus rhythm rate of 78 first-degree AV block with a WI interval of 305. No acute ST changes normal T waves QTc 402 Discharge Plan Discharge Patient Disposition: Admitted As Inpatient Admit Provider: Myrna Bowden Clinical Impression: Acute on chronic diastolic heart failure, Chronic kidney disease, stage IV (severe), Diabetes mellitus type 2, noninsulin dependent, S/P mitral valve replacement with bioprosthetic valve, S/P aortic valve replacement with bioprosthetic valve, Chronic anticoagulation, Influenza, COVID-19, Pulmonary HTN, Pneumonia Atrial fibrillation Qualifiers: Atrial fibrillation type: longstanding persistent Qualified Code(s): I48.11 - Longstanding persistent atrial fibrillation Condition: Stable Sign Out Sign Out Data: Patient Sign Out occurred on 07/04/24 at 05:17. Patient's care was discussed, and care was transferred from Luis Armando Stanford DO to Shaun Juarez DO. Coding Level of Care Code ED Information Resources Director for Chema Yost
[2024-07-04 04:23] LABS: Influenza A POSITIVE (Negative); Influenza B NEGATIVE (Negative); Respiratory Syncytial Virus Ce NEGATIVE (Negative)
[2024-07-04] MEDS: ipratropium-albuterol 3 mL Neb INHALATION (04:35)
[2024-07-04 04:47] LABS: INR 1.88 (0.8-1.2)
[2024-07-04] MEDS: oseltamivir phosphate 75 mg Capsule PO (04:47)
[2024-07-04 04:48] LABS: Covid PCR Positive (Negative)
[2024-07-04 04:51] LABS: Basophils % 0.2 %; Eosinophils # 0.2 10^3/uL (0.0-0.8); Eosinophils % 1.2 %; Hematocrit 36.4 % (36-47); Lymphocytes # 0.6 10^3/uL (0.8-4.8); Lymphocytes % 4.4 %; Mean Corpuscular HGB Conc 30.8 g/dL (30-55); Mean Corpuscular Hemoglobin 28.3 pg (27-33); Mean Corpuscular Volume 91.9 fl (85-98); Mean Platelet Volume 10.8 fL (7.4-10.4); Monocytes # 1.9 10^3/uL (0.2-0.9); Monocytes % 12.8 %; Neutrophils # 11.85 10^3/uL (1.8-7.7); Nucleated Red Blood Cells % 0 %; Platelet Count 190 10^3/cmm (157-399); Red Blood Count 3.96 10^6/uL (3.85-5.65); Red Cell Distribution Width 14.8 % (12.1-15.1); White Blood Count 14.62 10^3/uL (3.29-11.43)
[2024-07-04 05:02] LABS: Alanine Aminotransferase 21 U/L (0-33); Albumin Level 3.9 g/dL (3.5-5.2); Alkaline Phosphatase 111 U/L (35-105); Aspartate Amino Transferase 18 U/L (0-32); Blood Urea Nitrogen 24 mg/dL (8-23); Carbon Dioxide 29 mmol/L (22-29); Chloride 95 mmol/L (98-107); Creatinine Clr Calc Pharmacy 31.1915; Globulin 3.2 g/dL (1.3-4.6); Glucose 277 mg/dL (65-115); NT Pro B Type Natriuretic Pept 490 pg/mL (0-450); Osmolality Calculated 298 mOsm/kg (285-295); Sodium 137 mmol/L (136-145); Total Bilirubin 0.8 mg/dL (0.15-1.2); Total Protein 7.1 g/dL (6.6-8.7)
[2024-07-04 05:03] LABS: Rapid Strep A Test Negative (Negative)
[2024-07-04 05:23] LABS: Lactic Sepsis W/Reflex 1.8 mmol/L (0.5-2.2)
--- NOTE | 2024-07-04 05:29 | ECG_ITS ---
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 Measurements Intervals [place] Rate: 78 P: 9 TX: 305 QRS: 53 QRSD: 92 T: 65 QT: 402 QTc: 460 Interpretive Statements SINUS RHYTHM WITH FIRST DEGREE AV BLOCK WITH OCCASIONAL VENTRICULAR PREMATURE COMPLEXES Compared to ECG 04/21/2024 12:28:34 Ventricular premature complex(es) now present First degree AV block now present Supraventricular rhythm no longer present Prolonged QT interval no longer present Electronically Signed On 07-04-2024 21:52:10 [employer] by Kodi Colmenares M.D. [id number]
[2024-07-04 05:49] LABS: Troponin(5th) Baseline 11 ng/L (0-10)
[2024-07-04] MEDS: levofloxacin-dextrose 5 % 500 MG/100 ML PREMIX 100 MG IV (05:57)
[2024-07-04 07:16] LABS: Procalcitonin 0.17 ng/mL (0-0.5)
--- OUTSIDE RECORDS SUMMARY | 2024-07-04 07:25 | XMS_ITS ---
Author Organization Unknown Results OrderDate OrderTestName ResultName ResultDate Value Units Range AbnormalFlag ResultStatus ObservationNotes TestCode ResultCode DateRecorded AccessionNumber DiagnosticSectionCode DiagnosticSectionName Sequence Interpretation 01/16/2024 00:00:00 CMP, SERUM OR PLASMA calcium [id number]:00:00 10.4 mg/dl 8.4-10.5 Final CMP, SERUM OR PLASMA Coding calcium 01/16/2024 00:00: 00:00:00URINALYSIS, COMPLETEbilirubin 1190-26-14A05:00:00NEGATIVENEGATIVEnormal Coding URINALYSIS, COMPLETE Coding bilirubin 01/16/2024 00:00: 00:00:00CMP, SERUM OR CTNVEYn555653-14-18X82:00:00 28.0mmol/l22.0-31.0Final Coding CMP, SERUM OR PLASMA Coding c02 01/16/2024 00:00: 00:00:00SARS COV 2 RNA, QL, NASOPHARYNX 5321-01-03W74:00:00negative Coding SARS COV 2 RNA, QL, NASOPHAR YNX Coding 10/28/2023 00:00: 00:00:00CMP, SERUM OR PLASMAglobulin 4369-09-67D26:00:003.6calcFinal Coding CMP, SERUM OR PLASMA Coding globulin 01/16/2024 00:00: 00:00:72JYAqluk4380-09-94P80:00:0033.4g/dl 32.0-36.0Final Coding CBC Coding mchc 01/16/2024 00:00: 00:00:00CULTURE, THROATculture, throat 1449-90-95T57:00:00SEE NOTEFinal Coding CULTURE, THROAT Coding culture, throat culture, throat 04/11/2024 00:00: 00:00:00CBCmonocytes #9140-30-54K03:00:001.0x10 Final Coding CBC Coding monocytes # 01/16/2024 00:00: 00:00:00CMP, SERUM OR PLASMAtotal bilirubin 0717-54-55L79:00:000.5mg/dl0.2-1.3Final Coding CMP, SERUM OR PLASMA Coding total bilirubin 01/16/2024 00:00: 00:00:00URINALYSIS, FRNPVERVto2483-53-76P42:00:00 7.05.0-7.0normal Coding URINALYSIS, COMPLETE Coding ph 01/16/2024 00:00: 00:00:00CMP, SERUM OR PLASMAbun/creatinine ratio 5411-82-01A44:00:0015.00ratioFinal Coding CMP, SERUM OR PLASMA Coding bun/creatinine ratio 01/16/2024 00:00: 00:00:00URINALYSIS, COMPLETEother 5489-99-73B19:00:00- Coding URINALYSIS, COMPLETE Coding other 01/16/2024 00:00: 00:00:12QMEvrx2301-60-62D52:00:004.26f360.50-5.50 Final Coding CBC Coding rbc 01/16/2024 00:00: 00:00:00CMP, SERUM OR PLASMAaltv (sgpt) 9258-39-59D34:00:0031.0u/l13.0-69.0normalFinal Coding CMP, SERUM OR PLASMA Coding altv (sgpt) 01/16/2024 00:00: 00:00:94YWYmmp9931-66-43D18:00:0012.7g/dl12.0-16.0 Final Coding CBC Coding hgb 01/16/2024 00:00: 00:00:00XR, CHEST, 2 UEVC0753-61-86N90:00:00normal Coding XR, CHEST, 2 VIEW Coding 12/01/2023 00:00: 00:00:05BRUvxx6257-92-47R67:00:009.9x104.0-10.5 Final Coding CBC Coding wbc 01/16/2024 00:00: 00:00:00CBClymphocytes #5222-81-35J00:00:001.8x10 Final Coding CBC Coding lymphocytes # 01/16/2024 00:00: 00:00:00CMP, SERUM OR PLASMAsodium 2171-27-97M64:00:71934.0mmol/l136.0-145.0lowFinal Coding CMP, SERUM OR PLASMA Coding sodium 01/16/2024 00:00: 00:00:00URINALYSIS, KWBHIEFMjef4512-56-96T73:00:00 10-120high Coding URINALYSIS, COMPLETE Coding wbc 01/16/2024 00:00: 00:00:00URINALYSIS, HSSOPIPZpcs1294-06-08O03:00:00 0-10low Coding URINALYSIS, COMPLETE Coding rbc 01/16/2024 00:00: 00:00:38BMZpyu1458-78-84E24:00:86780.0x10 140.0-451.0Final Coding CBC Coding plt 01/16/2024 00:00: 00:00:17SRVocq3136-12-07A42:00:0029.7pg27.0-32.0 Final Coding CBC Coding mch 01/16/2024 00:00: 00:00:00URINALYSIS, COMPLETEspecific gravity 7624-89-45C05:00:001.0151.005-1.025normal Coding URINALYSIS, COMPLETE Coding specific gravity 01/16/2024 00:00: 00:00:00URINALYSIS, COMPLETEepi cells 4114-30-81L28:00:004-60low Coding URINALYSIS, COMPLETE Coding epi cells 01/16/2024 00:00: 00:00:00CMP, SERUM OR PLASMAosmolality 8080-28-65K23:00:28919.9calcFinal Coding CMP, SERUM OR PLASMA Coding osmolality 01/16/2024 00:00: 00:00:00CMP, SERUM OR PLASMAglucose 3141-20-95C44:00:28748.0mg/dl60.0-99.0highFinal Coding CMP, SERUM OR PLASMA Coding glucose 01/16/2024 00:00: 00:00:00CMP, SERUM OR PLASMAcreatinine (serum) 0684-59-58I71:00:001.6mg/dl0.4-1.5highFinal Coding CMP, SERUM OR PLASMA Coding creatinine (serum) 01/16/2024 00:00: 00:00:00CMP, SERUM OR PLASMAanion gap 3227-13-21K93:00:007.0calcFinal Coding CMP, SERUM OR PLASMA Coding anion gap 01/16/2024 00:00: 00:00:00CMP, SERUM OR PLASMAalbumin 7108-39-81T11:00:004.3g/dl3.5-5.5Final Coding CMP, SERUM OR PLASMA Coding albumin 01/16/2024 00:00: 00:00:62HABskm4097-54-57U17:00:0088.8fl80.0-99.9 Final Coding CBC Coding mcv 01/16/2024 00:00: 00:00:00RAPID STREP GROUP A, THROAT 8252-21-46X97:00:00positive Coding RAPID STREP GROUP A, THROAT Coding 02/06/2024 00:00: 00:00:00CMP, SERUM OR PLASMAtotal protein 8536-18-51V70:00:007.9g/dl6.0-8.5Final Coding CMP, SERUM OR PLASMA Coding total protein 01/16/2024 00:00: 00:00:00CBCgranulcytes %2708-20-22C21:00:0070.3% 30.0-70.0highFinal Coding CBC Coding granulcytes % 01/16/2024 00:00: 00:00:00CMP, SERUM OR PLASMAbun (blood urea nitrogen)6658-98-71X83:00:0024.0mg/dl10.0-26.0Final Coding CMP, SERUM OR PLASMA Coding bun (blood urea nitrogen) 01/16/2024 00:00: 00:00:00URINALYSIS, COMPLETEblood 3175-76-93R06:00:00TRACE-INTACTNEGATIVEabnormal Coding URINALYSIS, COMPLETE Coding blood 01/16/2024 00:00: 00:00:00URINALYSIS, COMPLETEbacteria 0526-38-72B25:00:00TRACE MIXED VAHE Coding URINALYSIS, COMPLETE Coding bacteria 01/16/2024 00:00: 00:00:00CMP, SERUM OR PLASMAchloride 5099-56-41E36:00:0099.0mmol/l98.0-110.0normalFinal Coding CMP, SERUM OR PLASMA Coding chloride 01/16/2024 00:00: 00:00:00URINALYSIS, COMPLETEketones 5977-77-69V51:00:00NEGATIVENEGATIVEnormal Coding URINALYSIS, COMPLETE Coding ketones 01/16/2024 00:00: 00:00:00CMP, SERUM OR PLASMAegfr calculated 4453-95-34A86:00:0033.2Final Coding CMP, SERUM OR PLASMA Coding egfr calculated 01/16/2024 00:00: 00:00:00CBClymphocytes %2636-16-24J49:00:0018.1% 20.0-50.0lowFinal Coding CBC Coding lymphocytes % 01/16/2024 00:00: 00:00:00CBCmonocytes %8776-37-10Z63:00:009.6% 2.0-16.0Final Coding CBC Coding monocytes % 01/16/2024 00:00: 00:00:00URINALYSIS, COMPLETEleukocytes 0928-04-22X30:00:00NEGATIVENEGATIVEnormal Coding URINALYSIS, COMPLETE Coding leukocytes 01/16/2024 00:00: 00:00:00CMP, SERUM OR PLASMAalp phos 5118-81-32Q13:00:25940.0u/l30.0-140.0normalFinal Coding CMP, SERUM OR PLASMA Coding alp phos 01/16/2024 00:00: 00:00:00CMP, SERUM OR PLASMApotassium 5047-23-29M90:00:004.8mmol/l3.5-5.1Final Coding CMP, SERUM OR PLASMA Coding potassium 01/16/2024 00:00: 00:00:00URINALYSIS, XRWNSNUUbtd1783-10-19E51:00:00 0.2 Coding URINALYSIS, COMPLETE Coding uro 01/16/2024 00:00: 00:00:00URINALYSIS, COMPLETEprotein 2992-40-30N07:00:00NEGATIVE Coding URINALYSIS, COMPLETE Coding protein 01/16/2024 00:00: 00:00:00URINALYSIS, COMPLETEclarity 6375-25-99J49:00:00CLEARCLEARnormal Coding URINALYSIS, COMPLETE Coding clarity 01/16/2024 00:00: 00:00:00URINALYSIS, COMPLETEglucose 3468-48-82L15:00:003+NEGATIVEabnormal Coding URINALYSIS, COMPLETE Coding glucose 01/16/2024 00:00: 00:00:00URINALYSIS, COMPLETEnitrate 5864-87-45H65:00:00NEGATIVENEGATIVEnormal Coding URINALYSIS, COMPLETE Coding nitrate 01/16/2024 00:00: 00:00:00URINALYSIS, COMPLETEcolor 1294-06-79B36:00:00YELLOW Coding URINALYSIS, COMPLETE Coding color 01/16/2024 00:00: 00:00:93KXVbbp2633-47-21P97:00:0038.0%37.0-47.0 Final Coding CBC Coding hct 01/16/2024 00:00: 00:00:59MRS5Y (HEMOGLOBIN A1C), BLOOD 2752-61-03U55:00:0011.9 Coding HBA1C (HEMOGLOBIN A1C), BLOO D Coding 01/16/2024 00:00: 00:00:00CMP, SERUM OR PLASMAast (sgot) 6531-54-63A43:00:0048.0u/l0.0-46.0highFinal Coding CMP, SERUM OR PLASMA Coding ast (sgot) 01/16/2024 00:00: 00:00:00CBCgranulcytes#6924-78-43K50:00:007.0x10 Final Coding CBC Coding granulcytes# 01/16/2024 00:00: 00:00:18TZXhmi9672-90-76F43:00:0015.6%11.5-14.5 highFinal Coding CBC Coding rdw 01/16/2024 00:00: 00:00:00CMP, SERUM OR PLASMAa/g ratio 5102-02-66T41:00:001.2ratioFinal Coding CMP, SERUM OR PLASMA Coding a/g ratio 01/16/2024 00:00:00
--- OUTSIDE RECORDS SUMMARY | 2024-07-04 07:25 | XMS_ITS | Clinical Summary ---
Author Organization [facility] Address [address] [facility] Attn: [place] [address] Care Team Providers Care Cost Accountant Name Role Phone Cain Albright MD Primary Care Provider + Allergies No known active allergies Medications levothyroxine 25 mcg tablet Take 25 mcg by mouth daily wood filler. 06/04/2014 Active diltiaZEM (CARDIZEM LA) 180 mg Extended Release 24 hour tablet Take 180 mg by mouth daily. 06/04/2014 Active potassium chloride (K-TAB) 20 mEq Extended Release tablet Take by mouth 3 times daily. 06/04/2014 Active furosemide (LASIX) 40 mg tablet Take 40 mg by mouth 3 times daily. 06/04/2014 Active sotaloL (BETAPACE) 120 mg Tablet Take 120 mg by mouth 2 times daily. 06/04/2014 Active pantoprazole (PROTONIX) 40 mg Tablet, Delayed Release (E.C.) Take 40 mg by mouth daily. 06/04/2014 Active spironolactone (ALDACTONE) 25 mg tablet Take 25 mg by mouth daily. 06/04/2014 Active Active Problems Problem Noted Date Diagnosed Date HTN (hypertension) 10/16/2008 Mixed hyperlipidemia 10/16/2008 Atrial fibrillation 10/16/2008 Mitral regurgitation and aortic stenosis 009 Immunizations Immunization Administration Dates Next Due (PNEUMOVAX 23)(50 YRS UP) PN EUMOCOCCAL POLYSACCHARIDE (PPV23) 0.5 ML, IM 02/27/2008 Influenza Seasonal Unspecified Formulation IM Pneumococcal conjugate, unspecified formulation 02/27/2008 Family History Medical History Relation Name Comments Diabetes Brother Heart Disease Father Relation Name Status Comments Brother Father Mother Alive Social History Tobacco Use Types Packs/Day Years Used Date Smoking Tobacco: Never Alcohol Use Standard Drinks/Week Comments No 0 (1 standard drink = 0.6 oz pur e alcohol) Comments Unknown Sex and Gender Information Value Date Recorded Sex Assigned at Not on file Legal Sex Female 6:20 AM WOOD EXPERIMENTAL MECHANIC Gender Identity Not on file Sexual Orientation Not on file Last Filed Vital Signs Vital Sign Reading Time Taken Comments Blood Pressure 140/60 06/30/2014 1:15 PM WOOD EXPERIMENTAL MECHANIC Pulse 72 06/30/2014 1:15 PM WOOD EXPERIMENTAL MECHANIC Temperature 36.7 ??C (98 ??F) 06/30/2014 1:15 PM WOOD EXPERIMENTAL MECHANIC Respiratory Rate 20 06/30/2014 1:15 PM WOOD EXPERIMENTAL MECHANIC Oxygen Saturation - - Inhaled Oxygen Concentration - - Weight 113.4 kg (250 lb) 06/30/2014 1:15 PM WOOD EXPERIMENTAL MECHANIC Height 162.6 cm (5' 4 ) 06/30/2014 1:15 PM WOOD EXPERIMENTAL MECHANIC Body Mass Index 42.91 06/30/2014 1:15 PM WOOD EXPERIMENTAL MECHANIC Plan of Treatment Health Maintenance Due Date Last Done Comments DTAP/TDAP/TD VACCINES (1 - Tdap) 1965 ZOSTER VACCINE (1 of 2) 1996 PNEUMOCOCCAL VACCINE 65+ YEA RS (2 of 2 - PCV) 02/26/2009 02/27/2008, 02/27/2008 OSTEOPOROSIS SCREENING 2011 RSV VACCINE (60+ or ) (1 - 1-dose 75+ series) 2021 INFLUENZA VACCINE (#1) 2023 03/24/2008 Care Teams Cost Accountant Relationship Specialty Start Date End Date Cain Albright MD [address] [phone] PCP - General 01/21/09
--- OUTSIDE RECORDS SUMMARY | 2024-07-04 07:26 | XMS_ITS | Encounter Summary ---
Author Organization [facility] Address [address] [place] [address] Care Team Providers Care Clinical Education Academic Coordinator Name Role Phone Cain Albright MD Primary Care Provider + Encounter Details Date Type Department Care Team (Late st Contact Info) Description 01/22/2009 Ancillary Orders [facility] Imaging Services [address] [place] [address] Yaneth Lawson MD [address] [facility] [address] [place] [address] Atrial Fibrillation (CMS/HCC) Social History Tobacco Use Types Packs/Day Years Used Date Smoking Tobacco: Never Assessed Comments No Sex and Gender Information Value Date Recorded Sex Assigned at Not on file Legal Sex Female 5:33 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 Probable hiatal hernia Narrative 01/22/2009 11:08 AM CDT The heart is mildly enlarged. Probable hiatal hernia is present posteriorly. The lungs are clear. The pleural spaces are normal. Vascular congestion is not suspected. Procedure Note Yohannes Menendez MD - 01/22/2009 The heart is mildly enlarged. Probable hiatal hernia is presentposteriorly. The lungs are clear. The pleural spaces are normal. Vascular congestion is not suspected. IMPRESSION Impression: Mild cardiomegaly. Probable hiatal hernia us Yaneth Lawson MD DIAGNOSTIC IMAGING ORDERABLES Final Result documented in this encounter Visit Diagnoses Diagnosis Atrial fibrillation (CMS/HCC) Atrial fibrillation Atrial fibrillation (CMS/HCC) Atrial fibrillation documented in this encounter Care Teams Clinical Education Academic Coordinator Relationship Specialty Start Date End Date Cain Albright MD [address] [phone] PCP - General 01/21/09 documented as of this encounter
--- OUTSIDE RECORDS SUMMARY | 2024-07-04 07:26 | XMS_ITS | Encounter Summary ---
Author Organization [facility] Address [address] [place] [address] Care Team Providers Care Record Press Supervisor Name Role Phone Cain Albright MD Primary Care Provider + Encounter Details Date Type Department Care Team (Latest Contact Info) Description 11/25/1998 Outpatient Historical [facility] Rheumatology- [facility] [place] [address] [place] [address] Chilo Bragg MD NO ADDRESS ON FILE Osteitis condensans (Primary Dx); Other and unspecified disc disorder of cervical region Social History Tobacco Use Types Packs/Day Years Used Date Smoking Tobacco: Never Assessed Comments Unknown Sex and Gender Information Value Date Recorded Sex Assigned at Not on file Legal Sex Female 5:33 AM SPOT WASHER Gender Identity Not on file Sexual Orientation Not on file documented as of this encounter Plan of Treatment Not on file documented as of this encounter Visit Diagnoses Diagnosis Osteitis condensans- Primary Other and unspecified disc disorder of cervical region documented in this encounter Care Teams Record Press Supervisor Relationship Specialty Start Date End Date Cain Albright MD [address] [facility] [address] [place] [address] PCP - General 01/21/09 documented as of this encounter
--- OUTSIDE RECORDS SUMMARY | 2024-07-04 07:26 | XMS_ITS | Encounter Summary ---
Author Organization [facility] Address [address] [place] [address] Care Team Providers Care Skein Winding Operator Name Role Phone Cain Albright MD Primary Care Provider + Encounter Details Date Type Department Care Team (Late st Contact Info) Description 12/19/2008 Ancillary Orders [facility] Cardiology- [place] [address] [place] [address] Yaneth Lawson MD [address] [facility] [address] [place] [address] Social History Tobacco Use Types Packs/Day Years Used Date Smoking Tobacco: Never Assessed Comments No Sex and Gender Information Value Date Recorded Sex Assigned at Not on file Legal 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
--- OUTSIDE RECORDS SUMMARY | 2024-07-04 07:26 | XMS_ITS | Encounter Summary ---
Author Organization [facility] Address [address] [place] [address] Care Team Providers Care Investor Relations Analyst Name Role Phone Cain Albright MD Primary Care Provider + Encounter Details Date Type Department Care Team (Late st Contact Info) Description 01/22/[address] [facility] Cardiology- [place] [address] [place] [address] Yaneth Lawson MD [address] [facility] [address] [place] [address] Social History Tobacco Use Types Packs/Day Years Used Date Smoking Tobacco: Never Assessed Comments No Sex and Gender Information Value Date Recorded Sex Assigned at Not on file Legal Sex Female 5:33 AM SOCIAL MEDIA CONTENT MANAGER Gender Identity Not on file Sexual Orientation Not on file documented as of this encounter Plan of Treatment Not on file documented as of this encounter Visit Diagnoses Not on filedocumented in this encounter Care Teams Investor Relations Analyst Relationship Specialty Start Date End Date Cain Albright MD [address] [facility] [address] [place] [address] PCP - General 01/21/09 documented as of this encounter
--- OUTSIDE RECORDS SUMMARY | 2024-07-04 07:26 | XMS_ITS | Clinical Summary ---
Author Organization [facility] Address [address] [place] [address] Care Team Providers Care Musical Instrument Mechanic Name Role Phone Cain Albright MD Primary Care Provider + Allergies No known active allergies Medications MAGNESIUM PO Take 84 mg by mouth daily. Active WARFARIN 5 mg Oral Tab Take 5 mg by mouth daily. As directed. Active LIPITOR 40 mg Oral Tab Take 40 mg by mouth Daily LATE. Active conjugated estrogens (PREMARIN) 0.625 mg/g Vaginal vaginal cream Insert vaginally daily at bedtime. Active diltiazem (CARDIZEM LA) 180 mg Extended Release 24 hour tablet Take 180 mg by mouth daily. Active spironolactone (ALDACTONE) 25 mg tablet Take 25 mg by mouth daily. Active sotalol (BETAPACE) 120 mg Tablet Take 120 mg by mouth 2 times daily. Active pantoprazole (PROTONIX) 40 mg Tablet, Delayed Release (E.C.) Take 40 mg by mouth daily. Active levothyroxine (SYNTHROID) 25 mcg Oral tablet Take 25 mcg by mouth daily bite block maker. Active potassium chloride (K-TAB) 20 mEq Extended Release tablet Take by mouth 3 times daily. Active furosemide (LASIX) 40 mg tablet Take 40 mg by mouth 3 times daily. Active Active Problems Problem Noted Date Diagnosed Date Atrial fibrillation 10/16/2008 HTN (hypertension) 10/16/2008 Mixed hyperlipidemia 10/16/2008 Mitral regurgitation and aortic stenosis 009 [...] = 0.6 oz pur e alcohol) Comments No Sex and Gender Information Value Date Recorded Sex Assigned at Not on file Legal Sex Female 5:33 AM PATHOLOGY TEACHER Gender Identity Not on file Sexual Orientation Not on file Occupation Industry Job Start Date Job End Date Not on file Not on file Not on file Not on file Last Filed Vital Signs Vital Sign Reading Time Taken Comments Blood Pressure 140/60 06/30/2014 1:15 PM PATHOLOGY TEACHER Pulse 72 06/30/2014 1:15 PM PATHOLOGY TEACHER Temperature 36.7 ??C (98 ??F) 06/30/2014 1:15 PM PATHOLOGY TEACHER Respiratory Rate 20 06/30/2014 1:15 PM PATHOLOGY TEACHER Oxygen Saturation 95% 06/30/2014 1:15 PM PATHOLOGY TEACHER Inhaled Oxygen Concentration - - Weight 113.4 kg (250 lb) 06/30/2014 1:15 PM PATHOLOGY TEACHER Height 162.6 cm (5' 4 ) 06/30/2014 1:15 PM PATHOLOGY TEACHER Body Mass Index 42.91 06/30/2014 1:15 PM PATHOLOGY TEACHER Plan of Treatment Health Maintenance Due Date Last Done Comments DTAP/TDAP/TD VACCINES (1 - Tdap) 1965 ZOSTER VACCINE (1 of 2) 1996 PNEUMOCOCCAL VACCINE 65+ YEA RS (2 of 2 - PCV) 02/26/2009 02/27/2008, 02/27/2008 OSTEOPOROSIS SCREENING 2011 RSV VACCINE (60+ or ) (1 - 1-dose 75+ series) 2021 INFLUENZA VACCINE (#1) 2023 03/24/2008 Insurance MEDICARE PART A AND B [facility] Advance Directives For more information, please contact: [phone] * Full Code (Latest Code Status on File) Date Activated Date Inactivated Comments 01/23/2009 12:05 PM 01/24/2009 12:37 PM * Full Code Date Activated Date Inactivated Comments 01/23/2009 5:54 AM 01/23/2009 12:05 PM Care Teams Musical Instrument Mechanic Relationship Specialty Start Date End Date Cain Albright MD [address] [phone] PCP - General 01/21/09
--- OUTSIDE RECORDS SUMMARY | 2024-07-04 07:26 | XMS_ITS | Encounter Summary ---
Author Organization [facility] Address [address] [place] [address] Care Team Providers Care Supervisory Examiner Name Role Phone Cain Albright MD Primary Care Provider + Encounter Details Date Type Department Care Team (Latest Contact Info) Description 11/25/1998 Outpatient Historical [facility] Imaging Services-[facility] [place] [address] [place] [address] Chilo Bragg MD NO ADDRESS ON FILE Osteitis condensans (Primary Dx) Social History Tobacco Use Types Packs/Day Years Used Date Smoking Tobacco: Never Assessed Comments Unknown Sex and Gender Information Value Date Recorded Sex Assigned at Not on file Legal Sex Female 5:33 AM ADVANCED MANUFACTURING TECHNICIAN Gender Identity Not on file Sexual Orientation Not on file documented as of this encounter Plan of Treatment Not on file documented as of this encounter Visit Diagnoses Diagnosis Osteitis condensans- Primary documented in this encounter Care Teams Supervisory Examiner Relationship Specialty Start Date End Date Cain Albright MD [address] [phone] PCP - General 01/21/09 documented as of this encounter
--- OUTSIDE RECORDS SUMMARY | 2024-07-04 07:26 | XMS_ITS | Encounter Summary ---
Author Organization [facility] Address [address] [place] [address] Care Team Providers Care Strap Buckler Machine Name Role Phone Cain Albright MD Primary Care Provider + Encounter Details Date Type Department Care Team (Late st Contact Info) Description 12/19/2008 Ancillary Orders [facility] Cardiac Collection Team Lead [address] [place] [address] Yaneth Lawson MD [address] [facility] [address] [place] [address] Atrial Fibrillation (CMS/HCC) (Primary Dx) Social History Tobacco Use Types Packs/Day Years Used Date Smoking Tobacco: Never Assessed Comments No Sex and Gender Information Value Date Recorded Sex Assigned at Not on file 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 ?? Procedure Note Sheryl Albarran MD - 11/28/2012 Final see Provider's notes. us Yaneth Lawson MD FLUOROSCOPY ORDERABLES Final Result * CL STUDY COMP EPS W RFA 3D MAPPING (01/23/2009 11:28 AM CDT) Narrative [facility] - 05/23/2009 9:07 PM [facility] ? [place], [place] OPERATIVE NOTE NAME LORI SEXTON [facility] [id number] AGE 63Y PHYSICIAN MARISSA LAWSON MD, PhD/1269ES LOCATION 4HCLRU Page 1 LORI SEXTON [facility] [id number] 1945 DATE: 01/23/2009 TITLE OF PROCEDURE: Atrial fibrillation ablation. PREPROCEDURE DIAGNOSES: 1. Persistent refractory atrial fibrillation. 2. Hypertension. 3. Hyperlipidemia. POSTPROCEDURE DIAGNOSES: 1. Persistent refractory atrial fibrillation. 2. Hypertension. 3. Hyperlipidemia. 4. EP study and status post pulmonary vein isolation. MATERIALS USED: 1. 5, 6, 5-Lebanese sheath to the left femoral vein for the quadruple, octapolar, quadruple electrode catheter to map HRA HIS bundle and RV apex. 2. 8, 8, 11-Lebanese sheath to the right femoral vein for the 8 mm Carto mapping and special ablating catheter and adjustable circular electro catheter and intracardiac ultrasound catheter. 3. 7-Lebanese sheath to the right internal jugular for the Orbitor electrode catheter to map coronary sinus. 4. 4-Lebanese sheath to the left femoral artery for the continuous blood pressure measurement. PROCEDURES PERFORMED: 1. Upper transseptal with broken bow needle technique. 2. 3D mapping of left atrium and 4 pulmonary veins. 3. Radiofrequency ablation guided by the adjustable circular electro catheter as well as anatomic 3D mapping. 4. EP study with and without ablation, attempting to induce a different kind of supraventricular tachycardia such as AV ervin re-entry tachycardia ventricular tachycardia or atrial tachycardia. DESCRIPTION OF PROCEDURE: After informed consent obtained, the patient was sent to the Electrophysiology Lab in the postabsorptive state. Bilateral groins and the right neck were prepped in the usual fashion with sterile technique. All catheters mentioned above were guided into the heart under fluoro guidance so we could electrically map HRA, HIS bundle, and RV apex area. The patient was in atrial fibrillation and baseline as follows: QT 375, QRS 105, HV 40. Intracardiac ultrasound was introduced into the right atrium to view the left atrium. We did not see the sign of thrombus, and the patient does ? smoke? , and left atrium was clearly enlarged. Intracardiac ultrasound was advanced to the RV outflow tract area to view the pericardial space. We did not see any significant pericardial effusion. Upper transseptal with broken bow needle technique proceeded under fluoro guidance, intracardiac ultrasound and the contrast agent. The left atrium was cannulated twice with SRO sheath and adjustable circular electrode catheter and 8-mm Carto mapping catheter were placed into the left atrium. Blood sample from the left atrium and the direct hemodynamic measurement were done. Adjustable circular electrode catheter was placed into the four independent veins and to guide ablation, and the mapping catheter was then used to map the ostial area in the left atrial area. The patient clearly had four veins and had a very small amount of atrial fibrillation signal. Left upper pulmonary vein had the most signal. Other places had only very small amount of signal. Of note, even atrial signal is very small. 7,000 unit heparin bolus was given, and 2,000 units per hour were also given. Throughout the procedure, every 15 minutes to 20 minutes, we checked the activated clotting time and kept the activated clotting time between 250 to 350 range. Radiofrequency ablation then proceeded guided by the anatomic as well as the adjustable circular electrode catheter. After we cleaned the four pulmonary veins and achieved isolation, patient was still in atrial fibrillation. More versed and fentanyl was given and DC cardioversion with 300 joules was initiated. One shock converted the patient back to sinus rhythm. Individual veins was then again rechecked. Adjustable circular electrode catheter was placed into each individual pulmonary vein, and we could not see any significant pulmonary vein potential. I believed we achieved total isolation in four pulmonary veins. We started to do the study attempting to induce any possible supraventricular tachycardia or other arrhythmia. Ventricular decremental pacing 1:1 until 560 msec. Atrial decremental pacing 1:1 until 430 msec post ablation. Baseline after DC cardioversion as follows: NY 180, QRS 100, QT 440, AH 110, HV 40, cycle length 930 msec. Atrial ERP was 600/310 msec. No supraventricular tachycardia or ventricular tachycardia could be induced. There was a 45 msec AV jump noticed. Isoproterenol was then initiated with 1 mcg/min. After 5 minutes, the patient's baseline established and ventricular decremental pacing again 1:1 until 550 msec post ablation isoproterenol. With isoproterenol, the patient's baseline as follows: NY 180, QRS 105, QT 440, AH 120, HV 40, cycle length 890 msec. Atrial decremental pacing 1:10 until 420 msec, atrial ERP was 600/310 msec. We did not see a clear AV ervin dual physiology. No supraventricular tachycardia, ventricular tachycardia, or AT could be induced, so we concluded the study. Throughout the procedure, the patient's hemodynamics and oxygenation were stable. No complications noticed. He received 6 mg of versed and 150 mcg of fentanyl. Total fluoro time was 47.2 minutes. Total number of ablations of 26. Total time of ablations was 1661 seconds. At the end of the procedure, the intracardiac ultrasound was then introduced into the RV outflow tract to view the pericardial space. We did not see any significant pericardial effusion. Gross neuro exam proceeded, and the patient did not have gross neurological deficit. FINAL SUMMARY: 1. Mild to moderate elevated left atrial pressure and enlarged left atrial size. 2. Radiofrequency ablation, achieved pulmonary vein isolation in four pulmonary veins. 3. Normal electric conduction and not able to induce any supraventricular tachycardia or AT after the ablation with or without isoproterenol. MARISSA LAWSON MD, PhD/1269ES dln D 01/23/2009 11:50:03 T 01/23/2009 15:18:20 [id number] Procedure Note Yaneth Lawson MD - 06/04/2009 [place], [place] OPERATIVE NOTE NAME LORI SEXTON [facility] [id number] AGE 63Y PHYSICIAN MARISSA LAWSON MD, PhD/1269ES LOCATION 4HCLRU Page 1 GABRIELA SEXTONChris [facility] [id number] 1945 DATE: 01/23/2009 TITLE OF PROCEDURE: Atrial fibrillation ablation. PREPROCEDURE DIAGNOSES: 1. Persistent refractory atrial fibrillation. 2. Hypertension. 3. Hyperlipidemia. POSTPROCEDURE DIAGNOSES: 1. Persistent refractory atrial fibrillation. 2. Hypertension. 3. Hyperlipidemia. 4. EP study and status post pulmonary vein isolation. MATERIALS USED: 1. 5, 6, 5-Lebanese sheath to the left femoral vein for the quadruple,octapolar, quadruple electrode catheter to map HRA HIS bundle and RV apex. 2. 8, 8, 11-Lebanese sheath to the right femoral vein for the 8 mm Cartomapping and special ablating catheter and adjustable circular electro catheter and intracardiac ultrasound catheter. 3. 7-Lebanese sheath to the right internal jugular for the Orbitor electrodecatheter to map coronary sinus. 4. 4-Lebanese sheath to the left femoral artery for the continuous bloodpressure measurement. PROCEDURES PERFORMED: 1. Upper transseptal with broken bow needle technique. 2. 3D mapping of left atrium and 4 pulmonary veins. 3. Radiofrequency ablation guided by the adjustable circular electrocatheter as well as anatomic 3D mapping. 4. EP study with and without ablation, attempting to induce a differentkind of supraventricular tachycardia such as AV ervin re-entry tachycardia ventricular tachycardia or atrialtachycardia. DESCRIPTION OF PROCEDURE: After informed consent obtained, the patient wassent to the Electrophysiology Lab in the postabsorptive state. Bilateralgroins and the right neck were prepped in the usual fashion with steriletechnique. All catheters mentioned above were guided into the heart underfluoro guidance so we could electrically map HRA, HIS bundle, and RV apexarea. The patient was in atrial fibrillation and baseline as follows: QT375, QRS 105, HV 40. Intracardiac ultrasound was introduced into the rightatrium to view the left atrium. We did not see the sign of thrombus, andthe patient does ? smoke? , and left atrium was clearly enlarged.Intracardiac ultrasound was advanced to the RV outflow tract area to viewthe pericardial space. We did not see any significant pericardialeffusion. Upper transseptal with broken bow needle technique proceededunder fluoro guidance, intracardiac ultrasound and the contrast agent. Theleft atrium was cannulated twice with SRO sheath and adjustable circularelectrode catheter and 8-mm Carto mapping catheter were placed into theleft atrium. Blood sample from the left atrium and the direct hemodynamicmeasurement were done. Adjustable circular electrode catheter was placedinto the four independent veins and to guide ablation, and the mappingcatheter was then used to map the ostial area in the left atrial area. Thepatient clearly had four veins and had a very small amount of atrialfibrillation signal. Left upper pulmonary vein had the most signal. Otherplaces had only very small amount of signal. Of note, even atrial signalis very small. 7,000 unit heparin bolus was given, and 2,000 units perhour were also given. Throughout the procedure, every 15 minutes to 20minutes, we checked the activated clotting time and kept the activatedclotting time between 250 to 350 range. Radiofrequency ablation thenproceeded guided by the anatomic as well as the adjustable circularelectrode catheter. After we cleaned the four pulmonary veins and achievedisolation, patient was still in atrial fibrillation. More versed andfentanyl was given and DC cardioversion with 300 joules was initiated. [place] converted the patient back to sinus rhythm. Individual veins wasthen again rechecked. Adjustable circular electrode catheter was placedinto each individual pulmonary vein, and we could not see any significantpulmonary vein potential. I believed we achieved total isolation in fourpulmonary veins. We started to do the study attempting to induce anypossible supraventricular tachycardia or other arrhythmia. Ventriculardecremental pacing 1:1 until 560 msec. Atrial decremental pacing 1:1 [id number] msec post ablation. Baseline after DC cardioversion as follows: PR180, QRS 100, QT 440, AH 110, HV 40, cycle length 930 msec. Atrial ERP slk263/310 msec. No supraventricular tachycardia or ventricular tachycardiacould be induced. There was a 45 msec AV jump noticed. Isoproterenol wasthen initiated with 1 mcg/min. After 5 minutes, the patient's baselineestablished and ventricular decremental pacing again 1:1 until 550 msecpost ablation isoproterenol. With isoproterenol, the patient's baseline asfollows: NY 180, QRS 105, QT 440, AH 120, HV 40, cycle length 890 msec.Atrial decremental pacing 1:10 until 420 msec, atrial ERP was 600/310msec. We did not see a clear AV ervin dual physiology. No supraventriculartachycardia, ventricular tachycardia, or AT could be induced, so weconcluded the study. Throughout the procedure, the patient's hemodynamics and oxygenation werestable. No complications noticed. He received 6 mg of versed and 150 mcgof fentanyl. Total fluoro time was 47.2 minutes. Total number of ablationsof 26. Total time of ablations was 1661 seconds. At the end of theprocedure, the intracardiac ultrasound was then introduced into the RVoutflow tract to view the pericardial space. We did not see anysignificant pericardial effusion. Gross neuro exam proceeded, and thepatient did not have gross neurological deficit. FINAL SUMMARY: 1. Mild to moderate elevated left atrial pressure and enlarged left atrialsize. 2. Radiofrequency ablation, achieved pulmonary vein isolation in fourpulmonary veins. 3. Normal electric conduction and not able to induce any supraventriculartachycardia or AT after the ablation with or without isoproterenol. MARISSA LAWSON MD, PhD/1269ES dln D 01/23/2009 11:50:03 T 01/23/2009 15:18:20 [id number] us Yaneth Lawson MD FLUOROSCOPY ORDERABLES Final Result [facility] * ECHOCARDIOGRAM TRANSESOPHAGEAL (01/22/2009 9:22 AM CDT) 01/22/2009 8:16 AM CDT [employer] INTERFACE SYSTEM - 01/22/2009 9:54 AM CDT [facility] [address] [place] [id number] Transesophageal Echocardiogram Patient: ?Lori Sexton Study ID: ? ECHOCARDIOGRAM T Gender: ? F : ?1945 Age: ?63 years Location: Room: Height: ? 64 in ( 163 cm ) Study date: ? January 22, 2009 Patient status: Weight: ? 213.55 lb ( 97.07 kg ) Study time: ? 8: 16 BSA: ?2.01 m^2 Performing MD: ??Hair Moody MD Software Systems Engineer: ?Chaparro Barnhart [facility] Ordering: ? Marissa Lawson MD Referring MD: ?? Marissa Lawson MD DIAGNOSES SUPPORTING MEDICAL NECESSITY: Atrial fibrillation - 427.31 PROCEDURE INFORMATION: A transesophageal complete 2D study was performed. Additional evaluation included complete spectral Doppler and color Doppler. Agitated saline contrast was utilized for this study.. An adult multi-plane probe was inserted by the attending infant and toddler teacher. This was a routine echocardiographic study. The study was performed in the echo lab. Image quality was good. The risks and alternatives of the procedure were explained to the patient and informed consent was obtained. Prior to the procedure, the oropharynx was anesthetized with topical benzocaine spray. The patient was given midazolam ( 4 mg ) given as 2 doses of 2 mg IV each and fentanyl ( 25 mcg ). There were no complications during the transesophageal echo procedure. SUMMARY AND CONCLUSION: - ??Overall left ventricular systolic function was normal. The visually estimated LV ejection fraction was around 55 %. There were no left ventricular regional wall motion abnormalities. - ??Right ventricular size was normal. Right ventricular systolic function was normal. - ??The left atrium was severely dilated. The left atrial appendage function was severely reduced (markedly reduced emptying velocity). Pulsed Doppler velocities were measured at about 0.15 m/sec. There was moderate spontaneous echo contrast ( smoke ). Color flow Doppler showed passage of a small to moderate amount of blood across the mid interatrial septum from the left atrium to the right atrium. This finding is consistent with either a patent foramen ovale or small ASD. - ??Aortic valve thickness was mildly increased. The aortic valve was mildly calcified. There was mildly reduced aortic valve leaflet excursion. Findings were consistent with mild aortic valve stenosis. Aortic valve area calculated by planimetry was 1.35 sq. cm. There was mild to moderate aortic valvular regurgitation. - ??There was mild thickening of the mitral valve. There was mildly reduced mitral valve leaflet excursion. The findings were consistent with mild mitral stenosis. There was mild to moderate mitral valvular regurgitation. - ??There was moderate to severe tricuspid valvular regurgitation. - ??There was trivial pulmonic regurgitation. - ??There was no atheroma of the aortic arch. - ??There was no pericardial effusion and the pericardium appears normal. - ??There was a very small yozsu-nk-muse shunt with cough by contrast study with agitated saline. - ??No intracavitary masses or thrombi detected. COMPARISONS: - ??No previous study is available for comparison. Cardiac anatomy: LEFT VENTRICLE: Left ventricular size was normal. Overall left ventricular systolic function was normal. The visually estimated LV ejection fraction was around 55 %. There were no left ventricular regional wall motion abnormalities. Left ventricular wall thickness was at the upper limits of normal. ATRIAL SEPTUM: Color flow Doppler showed passage of a small to moderate amount of blood across the mid interatrial septum from the left atrium to the right atrium. This finding is consistent with either a patent foramen ovale or small ASD. RIGHT VENTRICLE: Right ventricular size was normal. Right ventricular systolic function was normal. LEFT ATRIUM: The left atrium was severely dilated. There was no left atrial thrombus identified. There was moderate spontaneous echo contrast ( smoke ). Doppler: The left atrial appendage function was severely reduced (markedly reduced emptying velocity). Pulsed Doppler velocities were measured at about 0.15 m/sec. RIGHT ATRIUM: Right atrial size was at the upper limits of normal. AORTIC VALVE: The aortic valve was trileaflet. Aortic valve thickness was mildly increased. The aortic valve was mildly calcified. There was mildly reduced aortic valve leaflet excursion. Doppler: Findings were consistent with mild aortic valve stenosis. Aortic valve area calculated by planimetry was 1.35 sq. cm. There was mild to moderate aortic valvular regurgitation. MITRAL VALVE: There was mild thickening of the mitral valve. There was mildly reduced mitral valve leaflet excursion. Doppler: The findings were consistent with mild mitral stenosis. There was mild to moderate mitral valvular regurgitation. TRICUSPID VALVE: The tricuspid valve structure was normal. Doppler: There was moderate to severe tricuspid valvular regurgitation. PULMONIC VALVE: The structure of the pulmonic valve appeared to be normal. Doppler: There was trivial pulmonic regurgitation. PERICARDIUM: There was no pericardial effusion and the pericardium appears normal. AORTA: The aortic root was normal in size. The ascending aorta was normal. Visualized portion of the aortic arch appears unremarkable. There was no atheroma of the aortic arch. The descending aorta was normal. There was no evidence for aortic dissection. PULMONARY VEINS: Doppler: The left upper pulmonary vein Doppler flow pattern was normal. INTRACARDIAC MASS/THROMBUS: No intracavitary masses or thrombi detected. Contrast echo results: There was a very small kdvxe-jk-ebhr shunt with cough by contrast study with agitated saline. Measurement tables: Doppler measurements MITRAL VALVE ?NORMAL Peak E velocity ? 1.7 ?? cm/sec ??-- Peak A velocity ? 0 ? cm/sec ??-- MV deceleration time ??511 ?? msec ?150-230 msec Peak gradient ? 0 ? mmHg ?-- Pressure half-time ?148 ?? msec ?-- Area (PHT) ?1.48 ??cm^2 ?-- [facility] is accredited with the Intersocietal Commission for the Accreditation of Echocardiography Laboratories (ICAEL) Prepared and Electronically Authenticated Hair Moody MD Confirmed January 22, 2009 09:54:20 Procedure Note Hair Moody MD - 01/22/2009 [facility] [address] [place] [address] Transesophageal Echocardiogram Patient: Lori Sexton Study ID: ECHOCARDIOGRAM T Gender: F : 1945 Age: 63 years Location: Room: Height: 64 in ( 163 cm ) Study date: January 22, 2009 Patient status: Weight: 213.55 lb ( 97.07 kg ) Study time: 8: 16 BSA: 2.01 m^2 Performing MD: Hair Moody MD Software Systems Engineer: Chaparro Barnhart [facility] Ordering: Marissa Lawson MD Referring MD: Marissa Lawson MD DIAGNOSES SUPPORTING MEDICAL NECESSITY: Atrial fibrillation - 427.31 PROCEDURE INFORMATION: A transesophageal complete 2D study was performed. Additional evaluation included complete spectral Doppler and color Doppler. Agitated saline contrast was utilized for this study.. An adult multi-plane probe was inserted by the attending infant and toddler teacher. This was a routine echocardiographic study. The study was performed in the echo lab. Image quality was good. The risks and alternatives of the procedure were explained to the patient and informed consent was obtained. Prior to the procedure, the oropharynx was anesthetized with topical benzocainespray. The patient was given midazolam ( 4 mg ) given as 2 doses of 2 mg IVeach and fentanyl ( 25 mcg ). There were no complications during the transesophageal echo procedure. SUMMARY AND CONCLUSION: - Overall left ventricular systolic function was normal. The visually estimated LV ejection fraction was around 55 %. There were no left ventricular regional wall motion abnormalities. - Right ventricular size was normal. Right ventricular systolicfunction was normal. - The left atrium was severely dilated. The left atrial appendagefunction was severely reduced (markedly reduced emptying velocity). Pulsed Doppler velocities were measured at about 0.15 m/sec. There was moderate spontaneous echo contrast ( smoke ). Color flow Doppler showed passage of a small to moderate amount of blood across the mid interatrial septum from the left atrium to the right atrium. This finding is consistent with either a patent foramen ovale or small ASD. - Aortic valve thickness was mildly increased. The aortic valve wasmildly calcified. There was mildly reduced aortic valve leaflet excursion. Findings were consistent with mild aortic valve stenosis. Aortic valve area calculated by planimetry was 1.35 sq. cm. There was mild to moderate aortic valvular regurgitation. - There was mild thickening of the mitral valve. There was mildlyreduced mitral valve leaflet excursion. The findings were consistent with mild mitral stenosis. There was mild to moderate mitral valvular regurgitation. - There was moderate to severe tricuspid valvular regurgitation. - There was trivial pulmonic regurgitation. - There was no atheroma of the aortic arch. - There was no pericardial effusion and the pericardium appears normal. - There was a very small hceld-vs-utgn shunt with cough by contraststudy with agitated saline. - No intracavitary masses or thrombi detected. COMPARISONS: - No previous study is available for comparison. Cardiac anatomy: LEFT VENTRICLE: Left ventricular size was normal. Overall left ventricular systolic function was normal. The visually estimated LV ejection fraction wasaround 55 %. There were no left ventricular regional wall motion abnormalities. Left ventricular wall thickness was at the upper limits of normal. ATRIAL SEPTUM: Color flow Doppler showed passage of a small to moderate amount of blood across the mid interatrial septum from the left atrium to the rightatrium. This finding is consistent with either a patent foramen ovale or smallASD. RIGHT VENTRICLE: Right ventricular size was normal. Right ventricular systolic functionwas normal. LEFT ATRIUM: The left atrium was severely dilated. There was no left atrial thrombus identified. There was moderate spontaneous echo contrast ( smoke ). Doppler: The left atrial appendage function was severely reduced(markedly reduced emptying velocity). Pulsed Doppler velocities were measured at about 0.15 m/sec. RIGHT ATRIUM: Right atrial size was at the upper limits of normal. AORTIC VALVE: The aortic valve was trileaflet. Aortic valve thickness was mildly increased. The aortic valve was mildly calcified. There was mildlyreduced aortic valve leaflet excursion. Doppler: Findings were consistent withmild aortic valve stenosis. Aortic valve area calculated by planimetry was1.35 sq. cm. There was mild to moderate aortic valvular regurgitation. MITRAL VALVE: There was mild thickening of the mitral valve. There was mildly reduced mitral valve leaflet excursion. Doppler: The findings were consistentwith mild mitral stenosis. There was mild to moderate mitral valvular regurgitation. TRICUSPID VALVE: The tricuspid valve structure was normal. Doppler: There was moderate to severe tricuspid valvular regurgitation. PULMONIC VALVE: The structure of the pulmonic valve appeared to be normal. Doppler:There was trivial pulmonic regurgitation. PERICARDIUM: There was no pericardial effusion and the pericardium appears normal. AORTA: The aortic root was normal in size. The ascending aorta was normal. Visualized portion of the aortic arch appears unremarkable. There was no atheroma of the aortic arch. The descending aorta was normal. There wasno evidence for aortic dissection. PULMONARY VEINS: Doppler: The left upper pulmonary vein Doppler flow pattern was normal. INTRACARDIAC MASS/THROMBUS: No intracavitary masses or thrombi detected. Contrast echo results: There was a very small [id number] shunt with cough by contrast study with agitated saline. Measurement tables: Doppler measurements MITRAL VALVE NORMAL Peak E velocity 1.7 cm/sec -- Peak A velocity 0 cm/sec -- MV deceleration time 511 msec 150-230 msec Peak gradient 0 mmHg -- Pressure half-time 148 msec -- Area (PHT) 1.48 cm^2 -- [facility] is accredited with the [facility] Commission forthe Accreditation of Echocardiography Laboratories (ICAEL) Prepared and Electronically Authenticated Hair Moody MD Confirmed January 22, 2009 09:54:20 us Yaneth Marcie Lawson MD ORDERABLES Final Result INTERFACE SYSTEM Refer to clinic/hospital department documented in this encounter Visit Diagnoses Diagnosis Atrial fibrillation (CMS/HCC)- Primary Atrial fibrillation Atrial fibrillation (CMS/HCC) Atrial fibrillation Atrial fibrillation (CMS/HCC) Atrial fibrillation documented in this encounter Care Teams Strap Buckler Machine Relationship Specialty Start Date End Date Cain Albright MD [address] [id number] PCP - General 01/21/09 documented as of this encounter
--- NOTE | 2024-07-04 07:34 | PC.PHAR ---
Pt changed from [employer] mail order to [facility] mail order. Pt has taken no medications yet this morning-checked in about 3am.
--- NOTE | 2024-07-04 08:40 | PM.HP ---
Providers/Chief Complaint Admitting Physician: Myrna Bowden MD Primary Care Provider: Pankaj Dela Cruz MD Chief Complaint: Flu Like Sym History of Present Illness Pleasant 73-year-old lady with history of chronic anemia, GI bleeding, chronic disease, DM2, CHF, HTN, A-fib, hypothyroidism, valvular heart disease, has been feeling well well, and much worse over the last day, with malaise, shortness of breath, dry cough, found to be influenza A and COVID positive, and newly requiring 2 L of oxygen, whereas not normally on oxygen, tachypnea. With leukocytosis 14.62. Predominantly neutrophilic, 11.85. Chest x-ray with basilar infiltrates, somewhat worse on the left compared to right. No focal consolidation. Mild increase in cardiomegaly. Possible increased pulmonary art diameter. Review of Systems Const: Reports: malaise Eyes: Denies: change in vision ENMT: Reports: throat pain (mildly sore) Card: Denies: chest pain, edema, pre-syncope or dyspnea on exertion Resp: Reports: dyspnea and non-productive cough; Denies: productive cough, change in phlegm color or hemoptysis GI: Reports: nausea, vomiting and constipation; Denies: abdominal pain, diarrhea, hematochezia or melena : Denies: flank pain, urinary frequency or hematuria Musc: Denies: back pain, joint swelling or joint redness Skin/Breast: Denies: rash or new lesions Neuro: Denies: headache(s) or confusion Medications/Allergies Home Medications ?Medication ?Instructions ?Recorded ?Confirmed ?Last Taken ?Type furosemide 40 mg tablet 40 mg PO BID 05/29/19 07/04/24 07/03/24 History magnesium 250 mg tablet 250 mg PO BID 05/29/19 07/04/24 07/03/24 History montelukast 10 mg tablet 10 mg PO DAILY 05/29/19 07/04/24 07/03/24 History (Singulair) warfarin 1 mg tablet 1 mg PO DIRECTED 08/15/19 07/04/24 Unknown History pantoprazole 40 mg tablet,delayed 40 mg PO DAILY 01/13/21 07/04/24 07/03/24 History release (Protonix) warfarin 5 mg tablet See Rx Instructions .Route 03/01/21 07/04/24 Unknown Rx .COMPLEX #90 tabs ASO brace #1 ea 03/28/22 07/04/24 Unknown Rx donepezil 5 mg tablet 5 mg PO DAILY 04/05/22 07/04/24 07/03/24 History Left [place] AFO brace #1 ea 06/06/22 07/04/24 Unknown Rx memantine 5 mg tablet 5 mg PO BID 02/01/23 07/04/24 07/03/24 History prednisone 5 mg tablet 5 mg PO DAILY 02/01/23 07/04/24 07/03/24 History atorvastatin 40 mg tablet 40 mg PO QPM 01/10/24 07/04/24 07/03/24 History citalopram 20 mg tablet 20 mg PO DAILY 01/10/24 07/04/24 07/03/24 History loratadine 10 mg tablet 10 mg PO DAILY 01/10/24 07/04/24 07/03/24 History losartan 25 mg tablet 25 mg PO DAILY 01/10/24 07/04/24 07/03/24 History metolazone 5 mg tablet 5 mg PO DAILY PRN Edema 01/10/24 07/04/24 Unknown History potassium chloride 20 mEq 20 meq PO BID 01/10/24 07/04/24 07/03/24 History tablet,extended release(part/cryst) sotalol 120 mg tablet (Sotalol AF) 120 mg PO QPM 01/10/24 07/04/24 07/03/24 History spironolactone 50 mg tablet 50 mg PO DAILY 01/10/24 07/04/24 07/03/24 History warfarin 3 mg tablet See Rx Instructions .Route .COMPLEX 01/10/24 07/04/24 07/03/24 History warfarin 4 mg tablet See Rx Instructions .Route .COMPLEX 01/10/24 07/04/24 07/03/24 History albuterol sulfate 90 mcg/actuation 2 puff inhalation Q4H PRN 04/21/24 07/04/24 Unknown History aerosol inhaler Shortness Of Breath fluticasone propionate 50 1 spray intranasal DAILY PRN 04/21/24 07/04/24 04/21/24 History mcg/actuation nasal allergies spray,suspension levothyroxine 75 mcg tablet 75 mcg PO QAM 04/21/24 07/04/24 07/03/24 History metformin 500 mg tablet,extended 500 mg PO BID 04/21/24 07/04/24 07/03/24 History release 24 hr mometasone 0.1 % topical cream 1 applic topical PRN PRN Skin 04/21/24 07/04/24 Unknown History Irritation sotalol 160 mg tablet (Sotalol AF) 160 mg PO QAM 04/21/24 07/04/24 07/03/24 History Allergies Allergy/AdvReac Type Severity Reaction Status Date / Time adhesive tape Allergy ALGY-Rash Verified 02/22/24 13:50 PFSH Acute PFSH: Medical History Carotid occlusion, bilateral GI bleed Anemia Concern of GI bleeding. Protonix 40 mg twice daily. Received 1 unit of blood. Repeat CBC as an outpatient. Stop Coumadin. Consider initiation of low-dose aspirin, on follow-up with primary Acute on chronic diastolic heart failure Improved compensation Diabetes mellitus type 2, noninsulin dependent Chronic kidney disease, stage IV (severe) Stable Hypothyroidism Congestive heart failure Chronic diastolic Hypertension Chronic anticoagulation Hypercholesteremia Valvular heart disease Atrial fibrillation History of endocardial and epicardial ablation, AV ervin ablation, maze procedure . Currently on Betapace 160 mg p.o. twice daily Surgical History S/P aortic valve replacement with bioprosthetic valve S/P mitral valve replacement with bioprosthetic valve History of open heart surgery Hx of cholecystectomy H/O prior ablation treatment History of hernia repair History of hysterectomy H/O esophagogastroduodenoscopy 06/17/2019: Gastric erosions, hiatal hernia Hx of colonoscopy Family History Father CAD (coronary artery disease) Brother CAD (coronary artery disease) Diabetes Mother Dementia Family/Other Lung disease Denies family history of Clotting disorder Chronic kidney disease (CKD) Suicide Anesthesia complication Bleeding disorder Cancer Stroke Social History Smoking and tobacco/nicotine status: never used tobacco/nicotine Second hand smoke exposure: No Alcohol intake: never Substance/Drug Use: never Adopted: No Caregiver/support person: Yes Lives independently: Yes Household members: spouse Housing: House Marital status: Highest education level completed: High School Graduate service: No Current occupational status: retired Current occupational exposures/hazards: No Pets and animals: No Sexually active: No Do you think of yourself as: Straight/Heterosexual Current gender identity: Female Danielle/Restoration: Yazdanism Special danielle needs: No Agree to transfusion: No Vitals/I&O/Wt Last Vital Signs Temp 98.6 F 07/04/24 08:01 Pulse 87 07/04/24 08:01 Resp 18 07/04/24 08:01 BP 141/69 07/04/24 08:01 Pulse Ox 95 07/04/24 08:01 O2 Del Method Nasal Cannula 07/04/24 08:01 O2 Flow Rate 2 07/04/24 08:01 07/03/24 07/04/24 07/04/24 22:59 06:59 14:59 Intake Total 100 / 100 Balance 100 / 100 Weight last 48 hrs Weight 102.512 kg Physical Exam Const: COMMON NORMALS: patient oriented x3 and alert GENERAL APPEARANCE: cooperative ORIENTATION/CONSCIOUSNESS: Yes awake HENMT: COMMON NORMALS: oropharynx normal Neck/C-Spine: COMMON NORMALS: no JVD Resp: COMMON NORMALS: normal respiratory effort and clear to auscultation bilaterally AUSCULTATION: clear to auscultation bilaterally OTHER: cough Cardio: COMMON NORMALS: no JVD, regular rhythm, S1 normal heart sound present, S2 normal heart sound present and No murmurs present (Cardio) RHYTHM: regular rhythm HEART SOUNDS: S1 normal heart sound present and S2 normal heart sound present GI: COMMON NORMALS: Normal to inspection, nondistended, normoactive bowel sounds present, Soft to palpation and non-tender PALPATION: Yes Soft to palpation Extremity: COMMON NORMALS: no joint enlargement GENERAL: Yes edema (trace) Neuro: COMMON NORMALS: patient oriented x3 and moves all extremities SENSORIUM/ORIENTATION: Yes alert Skin: COMMON NORMALS: no rashes or lesions noted GENERAL SKIN EXAM: no rashes or lesions noted Data 07/04/24 04:29 07/04/24 04:29 Micro: Microbiology 07/04/24 05:08 Blood Culture - Preliminary Blood SPECIMEN COLLECTED 07/04/24 05:39 Blood Culture - Preliminary Blood SPECIMEN COLLECTED A&P Assessment and plan (1) Hypoxia: With acute severe covid and flu illness. Requiring 2 L of oxygen. Not normally on oxygen. Continue oxygen support, wean down as tolerating. Treat COVID, influenza. Reviewed vitals, CBC, INR, CMP, troponin, coronavirus PCR, influenza PCR, RSV, group A strep, chest x-ray, EKG. Reviewed ER provider note. She is not normally on oxygen, will continue to assess oxygenation, wean down oxygen as tolerating. Discussed with caser up, may require oxygen at discharge home. (2) COVID: Severe COVID-19 infection with new hypoxia. Confirmed with microbiology lab analyst, coronavirus is SARS-CoV-2, continuing to require oxygen support. Continue remdesivir. He is on warfarin, INR reviewed, 1.88. Currently receiving Solu-Medrol. Monitor for risk of hypertension, hyperglycemia. Reviewed POC glucose, noted with elevation. Insulin sliding scale is added. Continue to monitor POC glucose. Change diet to consist carbohydrate. Continue. Add antitussives. (3) Influenza: Time:. Continue oxygen support. Reassess oxygenation. (4) Paroxysmal atrial fibrillation: Continue warfarin. Sotalol. Plan CHF: Avoid fluid overload, currently does not appear decompensated. Monitor volume status. Avoid fluid overload. Diabetes: Continue consistent carbohydrate diet. Check POC glucose. Low-dose insulin sliding scale. Hold metformin for now. Hypothyroidism: Continue levothyroxine CKD: Reviewed condition, reassess chemistry to monitor renal function. . HTN: Monitor blood pressures. Continue losartan HLD: Continue statin Valvular heart disease PDMP PDMP Reviewed: Not Reviewed Attestations Medical Necessity Statement*: Admission over 2 midnights dissipated for assessment management of severe COVID-19, severe influenza with new hypoxia, and a lady with underlying multiple committees including CHF, diabetes, CKD, paroxysmal A-fib, and additional comorbidities as above. Diagnoses Hypoxia R09.02 COVID U07.1 Influenza J11.1 Paroxysmal atrial fibrillation I48.0
[2024-07-04] MEDS: remdesivir 200 MG in sodium chloride 0.9% (100 ml) 60 ML 100 MG IV (09:33)
[2024-07-04] MEDS: methylPREDNISolone sod succ 40 mg/mL INJ 30 MG IVP ×2 (09:35→21:09)
[2024-07-04] MEDS: donepezil 5 MG Tablet PO (09:40)
[2024-07-04] MEDS: memantine 5 mg tablet PO ×2 (09:40→17:16)
[2024-07-04 10:57] LABS: Troponin 5 6HR 14.19 ng/L (0-10); Troponin 5 6HR Delta 3.19 ng/L (0-12)
[2024-07-04 11:57] LABS: Glucose Point of Care 231 mg/dL (70-110)
[2024-07-04] MEDS: warfarin 3 mg Tablet PO (12:04)
[2024-07-04] MEDS: insulin lispro 100 unit/1 mL SUBCUT ×2 (12:04→17:16)
--- NOTE | 2024-07-04 13:10 | PC.NURSE ---
Patient transferred to [facility] room 264. Report called to TRUDY Kwon. Patient taken via wheelchair and aide. Patient denies pain or needs. No distress observed.
[2024-07-04 16:42] LABS: Glucose Point of Care 280 mg/dL (70-110)
[2024-07-04] MEDS: guaiFENesin 100 mg/5 mL UDC 10 mL 400 MG PO ×2 (16:43→21:14)
[2024-07-04] MEDS: oseltamivir phosphate 30 mg Capsule PO (17:16)
[2024-07-04 20:41] LABS: Glucose Point of Care 371 mg/dL (70-110)
[2024-07-04] MEDS: benzonatate 100 mg Capsule 200 MG PO (21:10)
[2024-07-05] VITALS (8 sets, daily range): BP systolic 125–172; BP diastolic 62–82; PULSE 60–87; RESP 17–20; TEMP 36.7–36.8; O2SAT 90–98
[2024-07-05] MEDS: levothyroxine 75 mcg Tablet PO (05:16)
[2024-07-05 05:22] LABS: Basophils % 0.1 %; Eosinophils % 0.2 %; Hematocrit 32.3 % (36-47); Lymphocytes # 1.1 10^3/uL (0.8-4.8); Lymphocytes % 10.7 %; Mean Corpuscular HGB Conc 31.6 g/dL (30-55); Mean Corpuscular Hemoglobin 28.1 pg (27-33); Mean Platelet Volume 10.8 fL (7.4-10.4); Monocytes # 0.3 10^3/uL (0.2-0.9); Monocytes % 3.4 %; Neutrophils # 8.53 10^3/uL (1.8-7.7); Nucleated Red Blood Cells % 0 %; Platelet Count 185 10^3/cmm (157-399); Red Blood Count 3.63 10^6/uL (3.85-5.65); Red Cell Distribution Width 14.7 % (12.1-15.1); White Blood Count 10.03 10^3/uL (3.29-11.43)
[2024-07-05 05:40] LABS: INR 2.12 (0.8-1.2)
[2024-07-05 05:42] LABS: D Dimer 0.77 ug/mLFEU (0-0.59)
[2024-07-05 05:50] LABS: Anion Gap 15.8 (5-19); Blood Urea Nitrogen 26 mg/dL (8-23); Calcium 10.2 mg/dL (8.5-10.5); Carbon Dioxide 27 mmol/L (22-29); Chloride 94 mmol/L (98-107); Glucose 276 mg/dL (65-115); Magnesium 2.2 mg/dL (1.7-2.3); Osmolality Calculated 291 mOsm/kg (285-295); Phosphorus 2.8 mg/dL (2.5-4.5); Potassium 3.8 mmol/L (3.5-5.1); Sodium 133 mmol/L (136-145)
[2024-07-05 06:28] LABS: Glucose Point of Care 284 mg/dL (70-110)
[2024-07-05] MEDS: benzonatate 100 mg Capsule 200 MG PO (09:04)
[2024-07-05] MEDS: donepezil 5 MG Tablet PO (09:04)
[2024-07-05] MEDS: memantine 5 mg tablet PO (09:04)
[2024-07-05] MEDS: oseltamivir phosphate 30 mg Capsule PO (09:04)
[2024-07-05] MEDS: insulin lispro 100 unit/1 mL SUBCUT ×2 (09:05→11:49)
[2024-07-05] MEDS: methylPREDNISolone sod succ 40 mg/mL INJ 30 MG IVP (09:05)
[2024-07-05] MEDS: guaiFENesin 100 mg/5 mL UDC 10 mL 400 MG PO (09:19)
[2024-07-05 10:47] LABS: Glucose Point of Care 323 mg/dL (70-110)
--- NOTE | 2024-07-05 11:32 | PC.SOCIAL ---
IMM Update pg 2 of IMM Updated and reviewed w/ patient. Copy provided and copy dated, initialed and placed in chart.
--- NOTE | 2024-07-05 14:52 | PM.DCS ---
Discharge Providers Date of Admission: 07/04/24 07:14 Date of Discharge: July 05, 2024 Attending Provider at Admission: Myrna Bowden MD Attending Provider at Discharge: Abundio Ortega Primary Care Provider: Pankaj Dela Cruz MD Diagnoses at Discharge Discharge Diagnosis (1) Hypoxia: Status: Acute (2) COVID: Status: Acute (3) Influenza: Status: Acute (4) Paroxysmal atrial fibrillation: Status: Acute Reason for Visit Reason for Visit: Flu Like Sym Brief History: Pleasant 73-year-old lady with history of chronic anemia, GI bleeding, chronic disease, DM2, CHF, HTN, A-fib, hypothyroidism, valvular heart disease, has been feeling well well, and much worse over the last day, with malaise, shortness of breath, dry cough, found to be influenza A and COVID positive, and newly requiring 2 L of oxygen, whereas not normally on oxygen, tachypnea. With leukocytosis 14.62. Predominantly neutrophilic, 11.85. Chest x-ray with basilar infiltrates, somewhat worse on the left compared to right. No focal consolidation. Mild increase in cardiomegaly. Possible increased pulmonary art diameter. Hospital Course Hospital Course With new hypoxia with severe COVID-19 infection, concomitant moderate to severe influenza infection with history of atrial fibrillation and congestive heart failure was initially admitted to cardiac stepdown unit with cardiac monitoring, however, underlying conditions remained without decompensation. Oxygenation stabilized, continued on 2 L nasal cannula oxygen. Showing gradual improvement with treatment with remdesivir, Tamiflu, Solu-Medrol, breathing treatments, antitussives. Continued on warfarin. She was doing better still today, continue to wean down on oxygen and came down to room air. Did not require supplemental oxygen on home oxygen evaluation prior to discharge. She knows to return to the hospital/seek medical attention in case of any worsening or new concerning symptoms. Physical Exam Const: COMMON NORMALS: patient oriented x3 and alert GENERAL APPEARANCE: cooperative ORIENTATION/CONSCIOUSNESS: Yes awake HENMT: COMMON NORMALS: oropharynx normal Neck/C-Spine: COMMON NORMALS: no JVD Resp: COMMON NORMALS: normal respiratory effort AUSCULTATION: wheezes (Mild) OTHER: Speaking in full sentences. Cardio: COMMON NORMALS: no JVD, regular rhythm, S1 normal heart sound present, S2 normal heart sound present and No murmurs present (Cardio) RHYTHM: regular rhythm HEART SOUNDS: S1 normal heart sound present and S2 normal heart sound present GI: COMMON NORMALS: Normal to inspection, nondistended, normoactive bowel sounds present, Soft to palpation and non-tender PALPATION: Yes Soft to palpation Extremity: COMMON NORMALS: no joint enlargement GENERAL: Yes edema (trace) Neuro: COMMON NORMALS: patient oriented x3 and moves all extremities SENSORIUM/ORIENTATION: Yes alert Skin: COMMON NORMALS: no rashes or lesions noted GENERAL SKIN EXAM: no rashes or lesions noted Discharge Data Studies Completed and Pending Completed Studies During Hospitalization Category Date Time Status XR chest 1V portable [id number] Stat Exams 07/04/24 03:36 Completed Pending at discharge Category Date Time Status Blood Culture Stat Lab 07/04/24 05:08 Results Streptococcus Culture Group A Stat Lab 07/04/24 04:49 Results Radiology Impressions Chest X-Ray 07/04/24 03:36 IMPRESSION: 1. Mild increase in cardiomegaly, as well as, what appears to be possible increased pulmonary aortic diameter given the prominence of the left hilum, could indicate some degree of acute worsening cardiac dysfunction. Consider CT angiogram, echocardiogram for further assessment. 2. Basilar infiltrates, somewhat worse on the left than with the right. No focal consolidation. 3. Hiatal hernia. Laboratory Results WBC 10.03 10^3/uL (3.29-11.43) 07/05/24 04:54 RBC 3.63 10^6/uL (3.85-5.65) L 07/05/24 04:54 Hgb 10.20 g/dL (11.27-16.99) L 07/05/24 04:54 Hct 32.3 % (36-47) L 07/05/24 04:54 MCV 89.0 fl (85-98) 07/05/24 04:54 MCH 28.1 pg (27-33) 07/05/24 04:54 MCHC 31.6 g/dL (30-55) 07/05/24 04:54 RDW 14.7 % (12.1-15.1) 07/05/24 04:54 Plt Count 185 10^3/cmm (157-399) 07/05/24 04:54 MPV 10.8 fL (7.4-10.4) H 07/05/24 04:54 Neut % (Auto) 85.0 % 07/05/24 04:54 Lymph % (Auto) 10.7 % 07/05/24 04:54 [place] % (Auto) 3.4 % 07/05/24 04:54 Eos % (Auto) 0.2 % 07/05/24 04:54 Baso % (Auto) 0.1 % 07/05/24 04:54 Neut # (Auto) 8.53 10^3/uL (1.8-7.7) H 07/05/24 04:54 Lymph # (Auto) 1.1 10^3/uL (0.8-4.8) 07/05/24 04:54 [place] # (Auto) 0.3 10^3/uL (0.2-0.9) 07/05/24 04:54 Eos # (Auto) 0.0 10^3/uL (0.0-0.8) 07/05/24 04:54 Baso # (Auto) 0.0 10^3/uL (0.0-0.1) 07/05/24 04:54 Nucleated RBC % (auto) 0 % 07/05/24 04:54 Nucleated RBCs # 0.0 /100WBC 07/05/24 04:54 PT 25.00 SECONDS (12.1-14.9) H 07/05/24 04:54 INR 2.12 (0.8-1.2) H 07/05/24 04:54 D-Dimer 0.77 ug/mLFEU (0-0.59) H 07/05/24 04:54 Sodium 133 mmol/L (136-145) L 07/05/24 04:54 Potassium 3.8 mmol/L (3.5-5.1) 07/05/24 04:54 Chloride 94 mmol/L (98-107) L 07/05/24 04:54 Carbon Dioxide 27 mmol/L (22-29) 07/05/24 04:54 Anion Gap 15.8 (5-19) 07/05/24 04:54 BUN 26 mg/dL (8-23) H 07/05/24 04:54 Creatinine 1.4 mg/dL (0.5-0.9) H 07/05/24 04:54 GFR Calculation Not Reportable 07/05/24 04:54 Glucose 276 mg/dL (65-115) H 07/05/24 04:54 POC Glucose 323 mg/dL (70-110) H 07/05/24 10:28 Calculated Osmolality 291 mOsm/kg (285-295) 07/05/24 04:54 Lactic Acid 1.8 mmol/L (0.5-2.2) 07/04/24 04:29 Calcium 10.2 mg/dL (8.5-10.5) 07/05/24 04:54 Phosphorus 2.8 mg/dL (2.5-4.5) 07/05/24 04:54 Magnesium 2.2 mg/dL (1.7-2.3) 07/05/24 04:54 Total Bilirubin 0.8 mg/dL (0.15-1.2) 07/04/24 04:29 AST 18 U/L (0-32) 07/04/24 04:29 ALT 21 U/L (0-33) 07/04/24 04:29 Alkaline Phosphatase 111 U/L (35-105) H 07/04/24 04:29 Troponin T Baseline 11 ng/L (0-10) H 07/04/24 04:29 Troponin T 120 Minute 11.70 ng/L (0-10) H 07/04/24 05:56 Delta Troponin T 0.70 ABS# (0-10) 07/04/24 05:56 Troponin T Hi Sens 6Hr 14.19 ng/L (0-10) H 07/04/24 10:31 Troponin T Hi Sens 6Hr Delta 3.19 ng/L (0-12) 07/04/24 10:31 C-Reactive Protein 96.0 mg/L (0.0-4.9) H 07/05/24 04:54 NT-Pro-B Natriuret Pep 490 pg/mL (0-450) H 07/04/24 04:29 Total Protein 7.1 g/dL (6.6-8.7) 07/04/24 04:29 Albumin 3.9 g/dL (3.5-5.2) 07/04/24 04:29 Globulin 3.2 g/dL (1.3-4.6) 07/04/24 04:29 Procalcitonin 0.17 ng/mL (0-0.5) 07/04/24 04:28 Coronavirus (PCR) Positive (Negative) A 07/04/24 03:35 Influenza A (PCR) Positive (Negative) 07/04/24 03:35 Influenza Type B (PCR) Negative (Negative) 07/04/24 03:35 RSV (PCR) Negative (Negative) 07/04/24 03:35 Group A Strep Rapid Negative (Negative) 07/04/24 04:49 Vitals Last Vital Signs Temp 98.0 F 07/05/24 11:28 Pulse 69 07/05/24 14:03 Resp 17 07/05/24 11:28 BP 132/82 07/05/24 14:03 Pulse Ox 90 07/05/24 14:03 O2 Del Method Room Air 07/05/24 11:28 O2 Flow Rate 1.5 07/04/24 20:00 FiO2 2 07/04/24 14:56 Discharge Plan Discharge Patient Disposition: Home Condition: Stable Prescriptions: New oseltamivir [Tamiflu] 30 mg Capsule 30 mg PO BID Qty: 9 0RF prednisone 20 mg tablet 40 mg PO DAILY 5 Days Qty: 10 0RF benzonatate 200 mg capsule 200 mg PO TID Qty: 30 0RF Continued montelukast [Singulair] 10 mg tablet 10 mg PO DAILY magnesium 250 mg tablet 250 mg PO BID furosemide 40 mg tablet 40 mg PO BID pantoprazole [Protonix] 40 mg tablet,delayed release (DR/EC) 40 mg PO DAILY donepezil 5 mg tablet 5 mg PO DAILY (DME) [facility] brace 9 See Rx Instructions .Route .MEDSUPPLY Qty: 1 0RF Rx Instructions: As directed (DME) [facility] See Rx Instructions .Route .MEDSUPPLY Qty: 1 0RF Rx Instructions: As directed prednisone 5 mg tablet 5 mg PO DAILY memantine 5 mg tablet 5 mg PO BID warfarin 1 mg tablet 1 mg PO DIRECTED Protocol: Dose Management Condition: Monday Dose/Route: 4 mg Instruction: 1 x 4 mg tablet Condition: Monday Dose/Route: 0 mg Instruction: 0 tablets Condition: Monday Dose/Route: 3 mg Instruction: 1 x 3 mg tablet Condition: Monday Dose/Route: 4 mg Instruction: 1 x 4 mg tablet Condition: Dose/Route: 3 mg Instruction: 1 x 3 mg tablet Condition: Monday Dose/Route: 4 mg Instruction: 1 x 4 mg tablet Condition: Monday Dose/Route: 4 mg Instruction: 1 x 4 mg tablet Protocol Text: Adjustment Start Date: Monday07/01/24 INR Value: 4.2 INR Date: 07/01/24 Recheck Date: 07/08/24 Rx Instructions: Take 1 tablet by mouth on Monday, , Monday and Monday. warfarin 5 mg tablet See Rx Instructions .ROUTE .COMPLEX Qty: 90 3RF Protocol: Dose Management Condition: Monday Dose/Route: 4 mg Instruction: 1 x 4 mg tablet Condition: Monday Dose/Route: 0 mg Instruction: 0 tablets Condition: Monday Dose/Route: 3 mg Instruction: 1 x 3 mg tablet Condition: Monday Dose/Route: 4 mg Instruction: 1 x 4 mg tablet Condition: Dose/Route: 3 mg Instruction: 1 x 3 mg tablet Condition: Monday Dose/Route: 4 mg Instruction: 1 x 4 mg tablet Condition: Monday Dose/Route: 4 mg Instruction: 1 x 4 mg tablet Protocol Text: Adjustment Start Date: Monday07/01/24 INR Value: 4.2 INR Date: 07/01/24 Recheck Date: 07/08/24 Dose Instruction: TAKE 1 TABLET EVERY DAY DIRECTED Rx Instructions: TAKE 1 TABLET EVERY DAY DIRECTED metolazone 5 mg tablet 5 mg PO DAILY PRN (Reason: Edema) citalopram 20 mg tablet 20 mg PO DAILY loratadine 10 mg tablet 10 mg PO DAILY atorvastatin 40 mg tablet 40 mg PO QPM sotalol [Sotalol AF] 120 mg tablet 120 mg PO QPM warfarin 4 mg tablet See Rx Instructions .ROUTE .COMPLEX Protocol: Dose Management Condition: Monday Dose/Route: 4 mg Instruction: 1 x 4 mg tablet Condition: Monday Dose/Route: 0 mg Instruction: 0 tablets Condition: Monday Dose/Route: 3 mg Instruction: 1 x 3 mg tablet Condition: Monday Dose/Route: 4 mg Instruction: 1 x 4 mg tablet Condition: Dose/Route: 3 mg Instruction: 1 x 3 mg tablet Condition: Monday Dose/Route: 4 mg Instruction: 1 x 4 mg tablet Condition: Monday Dose/Route: 4 mg Instruction: 1 x 4 mg tablet Protocol Text: Adjustment Start Date: Monday07/01/24 INR Value: 4.2 INR Date: 07/01/24 Recheck Date: 07/08/24 Rx Instructions: TAKE 1 TABLET BY MOUTH EVERY DAY EXCEPT MONDAY AND MONDAY, CURRENTLY. warfarin 3 mg tablet See Rx Instructions .ROUTE .COMPLEX Protocol: Dose Management Condition: Monday Dose/Route: 4 mg Instruction: 1 x 4 mg tablet Condition: Monday Dose/Route: 0 mg Instruction: 0 tablets Condition: Monday Dose/Route: 3 mg Instruction: 1 x 3 mg tablet Condition: Monday Dose/Route: 4 mg Instruction: 1 x 4 mg tablet Condition: Dose/Route: 3 mg Instruction: 1 x 3 mg tablet Condition: Monday Dose/Route: 4 mg Instruction: 1 x 4 mg tablet Condition: Monday Dose/Route: 4 mg Instruction: 1 x 4 mg tablet Protocol Text: Adjustment Start Date: Monday07/01/24 INR Value: 4.2 INR Date: 07/01/24 Recheck Date: 07/08/24 Rx Instructions: TAKE 1 TABLET BY MOUTH ON MONDAY AND MONDAY, CURRENTLY. potassium chloride 20 mEq tablet,ER particles/crystals 20 meq PO BID losartan 25 mg tablet 25 mg PO DAILY spironolactone 50 mg tablet 50 mg PO DAILY levothyroxine 75 mcg tablet 75 mcg PO QAM metformin 500 mg tablet extended release 24 hr 500 mg PO BID sotalol [Sotalol AF] 160 mg tablet 160 mg PO QAM albuterol sulfate 90 mcg/actuation HFA aerosol inhaler 2 puff INHALATION Q4H PRN (Reason: Shortness Of Breath) fluticasone propionate 50 mcg/actuation spray,suspension 1 spray INTRANASAL DAILY PRN (Reason: allergies) mometasone 0.1 % cream 1 applic TOPICAL PRN PRN (Reason: Skin Irritation) Discharge Orders: Discharge Order (Routine); Ordered 07/05/24 Ordered By: Abundio Ortega Referrals: Pankaj Dela Cruz MD [Primary Care Provider] - 07/10/24 10:20 am Discharge Diet: Cardiac and Diabetic Discharge Activity: Limit activity as instructed and Oxygen as instructed Patient Instructions: Prednisone (By mouth), Oseltamivir (By mouth), Influenza (MAGNOLIA), COVID-19 (Coronavirus Disease 2019) (MAGNOLIA) Activity Restrictions/Additional Instructions: Follow-up with your primary provider for reassessment of recovery from influenza and coronavirus infection. Continue oxygen as per instructions, especially when you are walking and exerting self as we have discussed. Continue nebulizer treatments at home. Seek medical attention case of any worsening or new concerning symptoms. Return to the hospital. Discharge Attestations Time Spent in Discharge Care*: greater than 30 min Quality Metrics Clinical Quality Measures [ No reported AMI, CVA or VTE this stay] Coding Level of Care Code 34691 Total time (in minutes) for Discharge: 45 Diagnoses Hypoxia R09.02 COVID U07.1 Influenza J11.1 Paroxysmal atrial fibrillation I48.0
== END 2024-07-05 12:35 | disposition home or self-care (01) | DRG 178 ==
LOC: ER 05:22 → CSU 06:03 → ER IP 07:23 → CSU 07:31 → MEDSURG 13:12
PROVIDERS: Emergency Medicine; Admitting Provider Internal Medicine; Emergency Provider Family Medicine; PCP Family Medicine; Visit Provider Internal Medicine
DX: U07.1 COVID-19 (principal); I13.0 Hypertensive heart and chronic kidney disease with heart failure and stage 1 through stage 4 chronic kidney disease, or unspecified chronic kidney disease; N18.4 Chronic kidney disease, stage 4 (severe); I50.32 Chronic diastolic (congestive) heart failure; R09.02 Hypoxemia; J10.1 Influenza due to other identified influenza virus with other respiratory manifestations; I48.0 Paroxysmal atrial fibrillation; D63.1 Anemia in chronic kidney disease; E11.22 Type 2 diabetes mellitus with diabetic chronic kidney disease; I48.91 Unspecified atrial fibrillation; E03.9 Hypothyroidism, unspecified; Z79.01 Long term (current) use of anticoagulants; Z79.84 Long term (current) use of oral hypoglycemic drugs; E78.00 Pure hypercholesterolemia, unspecified; Z95.3 Presence of xenogenic heart valve
CPT/HCPCS: 36415; 36416; 71045; 80048; 80053; 82962; 83605; 83735; 83880; 84100; 84145; 84484; 85025; 85378; 85610; 86140; 87040; 87081; 87150; 87205; 87637; 87880; 93005; 94640; 94760; 96365; 96372; 99285; J0248; J1815; J1956; J2919

== ENCOUNTER → 2024-08-19 10:08 | Outpatient (BNVA) | payer MEDICARE, SELFPAY | PROVIDERS: PCP Family Medicine; Visit Provider Internal Medicine Cardiovascular Disease | DX: I48.11 Longstanding persistent atrial fibrillation (principal); R06.02 Shortness of breath; I38 Endocarditis, valve unspecified; Z79.01 Long term (current) use of anticoagulants; E78.00 Pure hypercholesterolemia, unspecified; I10 Essential (primary) hypertension; I50.32 Chronic diastolic (congestive) heart failure | CPT/HCPCS: 36415; 80048; 83880; 99214 ==

== ENCOUNTER 2024-11-10 09:53 | Emergency (ER) | payer MEDICARE, SELFPAY ==
[2024-11-10 10:10] VITALS: BP 168/71; PULSE 63; RESP 20; TEMP 36.6; O2SAT 94; BMI 37.8
--- NOTE | 2024-11-10 10:21 | CTR_ITS ---
PROCEDURE INFORMATION: Exam: CT Abdomen And Pelvis With Contrast Exam date and time: 11/10/2024 11:45 AM Age: 79 years old Clinical indication: Abdominal pain; Prior surgery; Surgery date: 6+ months; Surgery type: Hysto herniasind; Additional info: Abdominal pain, oral contrast @ 1040-scan PT around 1130 alg TECHNIQUE: Imaging protocol: Computed tomography of the abdomen and pelvis with contrast. Radiation optimization: All CT scans at this facility use at least one of these dose optimization techniques: automated exposure control; mA and/or kV adjustment per patient size (includes targeted exams where dose is matched to clinical indication); or iterative reconstruction. Contrast material: OMNI 350; Contrast volume: 100 ml; Contrast route: INTRAVENOUS (IV); COMPARISON: CR XR hip LT 2-3V wo/w pel* [id number] 05/11/2021 10:58 AM RADIATION DOSE METRICS: Total DLP (mGy-cm): 957.62 FINDINGS: Lungs: Mild densities in the lingula and right middle lobe. Large hiatal hernia. Liver: Normal. No mass. Gallbladder and biliary ducts: Status post cholecystectomy. Pancreas: Normal. No ductal dilation. Spleen: Normal. No splenomegaly. Adrenal glands: Normal. No mass. Kidneys and ureters: There is an indeterminate lesion in the upper pole of the left kidney measuring 1.9 cm with average attenuation of 49 Hounsfield units. No hydronephrosis. Stomach and bowel: Colonic diverticulosis in the sigmoid colon. Appendix: No evidence of appendicitis. Intraperitoneal space: Unremarkable. No free air. No significant fluid collection. Vasculature: Unremarkable. No abdominal aortic aneurysm. Lymph nodes: Unremarkable. No enlarged lymph nodes. Urinary bladder: Unremarkable as visualized. Reproductive: The uterus may be surgically absent or partially surgically absent. Bones/joints: Mild invagination of lumbar endplates throughout the lumbar spine. Soft tissues: Unremarkable. CT/CT abdomen pelvis w con* [id number] IMPRESSION: 1. No acute findings. 2. Large hiatal hernia. 3. Indeterminate left renal mass. Recommend dedicated abdominal CT with and without contrast at a later date to further evaluate. COMMENTS: Consistent with the [place] [employer]'s Incidental Findings Committee white paper (J Am Belinda Radiol 2018): Any incidental renal lesion less than 1 cm or classified as too small to characterize, or any incidental cystic renal lesion characterized as simple-appearing, is likely benign. No follow-up imaging is recommended for these lesions per consensus recommendations based on imaging criteria.
--- NOTE | 2024-11-10 10:40 | ECG_ITS ---
[facility] [employer] Test Date: 2024-11-10 Pat Name: Lori Sexton Department: Room: Gender: Female Credit Risk Officer: : 1945 Requested By: Alvin Wise Order Number: [id number] Wes MD: Ada Mcnair M.D. Measurements Intervals [place] Rate: 60 P: 0 TN: 0 QRS: 60 QRSD: 105 T: 54 QT: 462 QTc: 465 Interpretive Statements SUPRAVENTRICULAR RHYTHM with occasional PVCs POSSIBLE RIGHT VENTRICULAR CONDUCTION DELAY [RSR (QR) IN V1/V2] MODERATE ST DEPRESSION [0.05+ mV ST DEPRESSION] PROLONGED QT INTERVAL Compared to ECG 07/04/2024 06:03:43 Supraventricular rhythm now present ST (T wave) deviation now present Prolonged QT interval now present Sinus rhythm no longer present Ventricular premature complex(es) no longer present First degree AV block no longer present Electronically Signed On 11-10-2024 21:46:00 CDT by Ada Mcnair M.D. [email or web address]
[2024-11-10 10:41] LABS: Basophils % 0.4 %; Eosinophils # 0.1 10^3/uL (0.0-0.8); Eosinophils % 0.9 %; Hematocrit 28.1 % (36-47); Lymphocytes # 1.8 10^3/uL (0.8-4.8); Lymphocytes % 18.8 %; Mean Corpuscular HGB Conc 28.5 g/dL (30-55); Mean Corpuscular Hemoglobin 24.5 pg (27-33); Mean Corpuscular Volume 86.2 fl (85-98); Mean Platelet Volume 10.5 fL (7.4-10.4); Monocytes # 1.5 10^3/uL (0.2-0.9); Monocytes % 15.2 %; Neutrophils # 6.27 10^3/uL (1.8-7.7); Neutrophils % 64.3 %; Nucleated Red Blood Cells % 0.2 %; Platelet Count 244 10^3/cmm (157-399); Red Blood Count 3.26 10^6/uL (3.85-5.65); Red Cell Distribution Width 16.6 % (12.1-15.1); White Blood Count 9.75 10^3/uL (3.29-11.43)
[2024-11-10 10:54] LABS: Bilirubin Urine Negative (Negative); Blood Urine Negative (Negative); Glucose Urine UA Trace (Normal); Ketones Urine Negative (Negative); Leukocyte Esterase Urine 1+ (Negative); Nitrate Urine Negative (Negative); Protein Urine 1+ (Negative); Specific Gravity, Urine 1.017 (1.005-1.030); Urine Appearance Clear (CLEAR); Urine Color Yellow (Yellow)
[2024-11-10 10:59] LABS: Add Urine Microscopic? YES; Bacteria Urine None Seen /hpf; Hyaline Casts Urine 0.81 /lpf; RBC Urine 0-2 /hpf (0-2); Squamous Epithelial Cell Urine 0-5 /hpf (0-5); WBC Urine 0-5 /hpf (0-5)
[2024-11-10 11:02] LABS: Alanine Aminotransferase 20 U/L (0-33); Alkaline Phosphatase 89 U/L (35-105); Blood Urea Nitrogen 22 mg/dL (8-23); Calcium 10.6 mg/dL (8.5-10.5); Carbon Dioxide 22 mmol/L (22-29); Chloride 99 mmol/L (98-107); Globulin 3.1 g/dL (1.3-4.6); Glucose 245 mg/dL (65-115); Lipase 45 U/L (13-60); Osmolality Calculated 291 mOsm/kg (285-295); Sodium 135 mmol/L (136-145); Total Bilirubin 0.4 mg/dL (0.15-1.2); Total Protein 7.1 g/dL (6.6-8.7)
[2024-11-10 11:03] LABS: Creatinine Clr Calc Pharmacy 35.4925
[2024-11-10 11:04] LABS: Anion Gap 18.8 (5-19); Aspartate Amino Transferase 29 U/L (0-32); Potassium 4.8 mmol/L (3.5-5.1)
[2024-11-10] MEDS: iohexol 350 mg/mL 500 mL Btl (per mL) IV (11:45)
[2024-11-10] MEDS: iohexol 350 mg/mL 500 mL Btl (per mL) PO (11:45)
[2024-11-10 13:11] VITALS: BP 151/70; PULSE 67; O2SAT 93
[2024-11-10 13:26] VITALS: BP 151/70; PULSE 67; O2SAT 93
--- NOTE | 2024-11-10 17:14 | W.ED.ABDPA2 ---
HPI - Abdominal Pain General: Chief Complaint: Shortness of Breath/Dyspnea Stated Complaint: abd pain, nausea Time Seen by Provider: 11/10/24 10:10 History of Present Illness: This patient is a 79-year-old white female who presents to the emergency department complaining of epigastric abdominal pain. She states it feels like a blockage. She has had some nausea but no vomiting. She has had some loose stools. She also feels like her bladder is full. She states she does feel short of breath. No chest pain. Patient states she has had these types of symptoms since she had heart valve replacements in 2010. 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 Associated Symptoms: Reports diarrhea and nausea Related Data Home Medications ?Medication ?Instructions ?Recorded ?Confirmed furosemide 40 mg tablet 40 mg PO BID 05/29/19 11/10/24 magnesium 250 mg tablet 250 mg PO BID 05/29/19 11/10/24 montelukast 10 mg tablet 10 mg PO DAILY 05/29/19 11/10/24 (Singulair) warfarin 1 mg tablet 1 mg PO DIRECTED 08/15/19 11/10/24 pantoprazole 40 mg tablet,delayed 40 mg PO DAILY 01/13/21 11/10/24 release (Protonix) donepezil 5 mg tablet 5 mg PO DAILY 04/05/22 11/10/24 memantine 5 mg tablet 5 mg PO BID 02/01/23 11/10/24 prednisone 5 mg tablet 5 mg PO DAILY 02/01/23 11/10/24 atorvastatin 40 mg tablet 40 mg PO QPM 01/10/24 11/10/24 citalopram 20 mg tablet 20 mg PO DAILY 01/10/24 11/10/24 loratadine 10 mg tablet 10 mg PO DAILY 01/10/24 11/10/24 metolazone 5 mg tablet 5 mg PO DAILY PRN Edema 01/10/24 11/10/24 potassium chloride 20 mEq 20 meq PO BID 01/10/24 11/10/24 tablet,extended release(part/cryst) sotalol 120 mg tablet (Sotalol AF) 120 mg PO QPM 01/10/24 11/10/24 spironolactone 50 mg tablet 50 mg PO DAILY 01/10/24 11/10/24 warfarin 3 mg tablet See Rx Instructions .Route .COMPLEX 01/10/24 11/10/24 warfarin 4 mg tablet See Rx Instructions .Route .COMPLEX 01/10/24 11/10/24 albuterol sulfate 90 mcg/actuation 2 puff inhalation Q4H PRN 04/21/24 11/10/24 aerosol inhaler Shortness Of Breath levothyroxine 75 mcg tablet 75 mcg PO QAM 04/21/24 11/10/24 metformin 500 mg tablet,extended 500 mg PO BID 04/21/24 11/10/24 release 24 hr mometasone 0.1 % topical cream 1 applic topical PRN PRN Skin 04/21/24 11/10/24 Irritation sotalol 160 mg tablet (Sotalol AF) 160 mg PO QAM 04/21/24 11/10/24 Previous Rx's ?Medication ?Instructions ?Recorded warfarin 5 mg tablet See Rx Instructions .Route 03/01/21 .COMPLEX #90 tabs ASO brace #1 ea 03/28/22 Left [place] AFO brace #1 ea 06/06/22 losartan 25 mg tablet See Rx Instructions .Route 07/15/24 .COMPLEX #90 tabs Allergies Allergy/AdvReac Type Severity Reaction Status Date / Time adhesive tape Allergy ALGY-Rash Verified 08/19/24 10:17 Review of Systems General: Reports: 10 or more systems reviewed and unremarkable except in HPI and below Resp: Reports: dyspnea GI: Reports: abdominal pain, nausea and diarrhea [facility] ED PFSH: Medical History Carotid occlusion, bilateral GI bleed Anemia Concern of GI bleeding. Protonix 40 mg twice daily. Received 1 unit of blood. Repeat CBC as an outpatient. Stop Coumadin. Consider initiation of low-dose aspirin, on follow-up with primary Acute on chronic diastolic heart failure Improved compensation Diabetes mellitus type 2, noninsulin dependent Chronic kidney disease, stage IV (severe) Stable Hypothyroidism Congestive heart failure Chronic diastolic Hypertension Chronic anticoagulation Hypercholesteremia Valvular heart disease Atrial fibrillation History of endocardial and epicardial ablation, AV ervin ablation, maze procedure . Currently on Betapace 160 mg p.o. twice daily Surgical History S/P aortic valve replacement with bioprosthetic valve S/P mitral valve replacement with bioprosthetic valve History of open heart surgery Hx of cholecystectomy H/O prior ablation treatment History of hernia repair History of hysterectomy H/O esophagogastroduodenoscopy 06/17/2019: Gastric erosions, hiatal hernia Hx of colonoscopy Family History Father CAD (coronary artery disease) Brother CAD (coronary artery disease) Diabetes Mother Dementia Family/Other Lung disease Denies family history of Clotting disorder Chronic kidney disease (CKD) Suicide Anesthesia complication Bleeding disorder Cancer Stroke Social History Smoking and tobacco/nicotine status: never used tobacco/nicotine Second hand smoke exposure: No Alcohol intake: never Substance/Drug Use: never Adopted: No Caregiver/support person: Yes Lives independently: Yes Household members: spouse Housing: House Marital status: Highest education level completed: High School Graduate service: No Current occupational status: retired Current occupational exposures/hazards: No Pets and animals: No Sexually active: No Do you think of yourself as: Straight/Heterosexual Current gender identity: Female Danielle/Yazidi: Cheondoism Special danielle needs: No Agree to transfusion: No Physical Exam Const: COMMON NORMALS: no acute distress, patient oriented x3 and no limitations GENERAL APPEARANCE: cooperative and comfortable HENMT: COMMON NORMALS: normocephalic, atraumatic, Normal nasal mucous membranes and turbinates present, moist oral mucous membranes and oropharynx normal HEAD & SCALP: normal to inspection, normocephalic and atraumatic FACE & SINUS: normal facial exam NOSE: Normal nasal mucous membranes and turbinates present Eye: COMMON NORMALS: Equal, round and reactive pupils present, EOMs intact bilaterally and conjunctivae normal GENERAL EYE: appearance normal, both eyes and all related structures CONJUNCTIVA: Yes conjunctivae normal PUPIL: Yes Equal, round and reactive pupils present Neck/C-Spine: COMMON NORMALS: supple and no JVD Chest: COMMONS NORMALS: normal inspection of the chest Resp: COMMON NORMALS: normal respiratory effort and clear to auscultation bilaterally AUSCULTATION: clear to auscultation bilaterally Cardio: COMMON NORMALS: no JVD, regular rate, regular rhythm, No gallops present (Cardio), No murmurs present (Cardio) and No rub (Cardio) RATE: regular rate RHYTHM: regular rhythm GI: COMMON NORMALS: Soft to palpation AUSCULTATION: Yes normoactive bowel sounds PALPATION: Yes Soft to palpation and Yes Tenderness to palpation present (GI) (Epigastrium) : COMMON NORMALS: Yes no CVA tenderness BLADDER/KIDNEY EXAM: Yes no CVA tenderness Back/Pelvis: COMMON NORMALS: no CVA tenderness and thoracic and lumbar spine normal to inspection Extremity: COMMON NORMALS: normal to inspection Neuro: COMMON NORMALS: patient oriented x3 and CN's II-XII intact bilaterally Psych: COMMON NORMALS: mental status grossly normal, Normal thought process present and cooperative THOUGHT PROCESS: Normal thought process present Skin: COMMON NORMALS: no rashes or lesions noted, turgor normal and no jaundice GENERAL SKIN EXAM: no rashes or lesions noted and turgor normal Course Vital Signs: Vital signs: Vital Signs Temperature 97.9 F 11/10/24 10:10 Pulse Rate 67 11/10/24 13:26 Respiratory Rate 20 H 11/10/24 10:10 Blood Pressure 151/70 11/10/24 13:26 Pulse Oximetry 93 11/10/24 13:26 Oxygen Delivery Me thod Room Air 11/10/24 13:11 MDM - Abdominal Pain Medical Decision Making EKG revealed normal sinus rhythm with no ST segment abnormalities. CT scan of the abdomen pelvis was read by the radiologist. She does have a large hiatal hernia. No other abnormalities. CBC reveals a hemoglobin of 8.0 and this is chronic. CMP was normal. Lipase normal at 45. Urinalysis normal. I discussed all the results with the patient. She was aware of the hiatal hernia. She states that she was on Protonix but her kidney doctor told her to discontinue it. I think her symptoms are likely secondary to this hiatal hernia. 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 She was discharged in stable condition. Lab Data 11/10/24 10:36 11/10/24 10:36 Labs/Radiology: Radiology Impressions Abdomen/Pelvis CT 11/10/24 10:21 IMPRESSION: 1. No acute findings. 2. Large hiatal hernia. 3. Indeterminate left renal mass. Recommend dedicated abdominal CT with and without contrast at a later date to further evaluate. COMMENTS: Consistent with the [employer]'s Incidental Findings Committee white paper (J Am Belinda Radiol 2018): Any incidental renal lesion less than 1 cm or classified as too small to characterize, or any incidental cystic renal lesion characterized as simple-appearing, is likely benign. No follow-up imaging is recommended for these lesions per consensus recommendations based on imaging criteria. Laboratory Results WBC 9.75 10^3/uL (3.29-11.43) 11/10/24 10:36 RBC 3.26 10^6/uL (3.85-5.65) L 11/10/24 10:36 Hgb 8.00 g/dL (11.27-16.99) L 11/10/24 10:36 Hct 28.1 % (36-47) L 11/10/24 10:36 MCV 86.2 fl (85-98) 11/10/24 10:36 MCH 24.5 pg (27-33) L 11/10/24 10:36 MCHC 28.5 g/dL (30-55) L 11/10/24 10:36 RDW 16.6 % (12.1-15.1) H 11/10/24 10:36 Plt Count 244 10^3/cmm (157-399) 11/10/24 10:36 MPV 10.5 fL (7.4-10.4) H 11/10/24 10:36 Neut % (Auto) 64.3 % 11/10/24 10:36 Lymph % (Auto) 18.8 % 11/10/24 10:36 Coles % (Auto) 15.2 % 11/10/24 10:36 Eos % (Auto) 0.9 % 11/10/24 10:36 Baso % (Auto) 0.4 % 11/10/24 10:36 Neut # (Auto) 6.27 10^3/uL (1.8-7.7) 11/10/24 10:36 Lymph # (Auto) 1.8 10^3/uL (0.8-4.8) 11/10/24 10:36 Coles # (Auto) 1.5 10^3/uL (0.2-0.9) H 11/10/24 10:36 Eos # (Auto) 0.1 10^3/uL (0.0-0.8) 11/10/24 10:36 Baso # (Auto) 0.0 10^3/uL (0.0-0.1) 11/10/24 10:36 Nucleated RBC % (auto) 0.2 % 11/10/24 10:36 Nucleated RBCs # 0.0 /100WBC 11/10/24 10:36 Sodium 135 mmol/L (136-145) L 11/10/24 10:36 Potassium 4.8 mmol/L (3.5-5.1) 11/10/24 10:36 Chloride 99 mmol/L (98-107) 11/10/24 10:36 Carbon Dioxide 22 mmol/L (22-29) 11/10/24 10:36 Anion Gap 18.8 (5-19) 11/10/24 10:36 BUN 22 mg/dL (8-23) 11/10/24 10:36 Creatinine 1.5 mg/dL (0.5-0.9) H 11/10/24 10:36 GFR Calculation Not Reportable 11/10/24 10:36 Glucose 245 mg/dL (65-115) H 11/10/24 10:36 Calculated Osmolality 291 mOsm/kg (285-295) 11/10/24 10:36 Calcium 10.6 mg/dL (8.5-10.5) H 11/10/24 10:36 Total Bilirubin 0.4 mg/dL (0.15-1.2) 11/10/24 10:36 AST 29 U/L (0-32) 11/10/24 10:36 ALT 20 U/L (0-33) 11/10/24 10:36 Alkaline Phosphatase 89 U/L (35-105) 11/10/24 10:36 Total Protein 7.1 g/dL (6.6-8.7) 11/10/24 10:36 Albumin 4.0 g/dL (3.5-5.2) 11/10/24 10:36 Globulin 3.1 g/dL (1.3-4.6) 11/10/24 10:36 Lipase 45 U/L (13-60) 11/10/24 10:36 Urine Color Yellow (Yellow) 11/10/24 10:42 Urine Appearance Clear (CLEAR) 11/10/24 10:42 Urine pH 7.0 (5-7) 11/10/24 10:42 Ur Specific Ten Sleep 1.017 (1.005-1.030) 11/10/24 10:42 Urine Protein 1+ (Negative) A 11/10/24 10:42 Urine Glucose (UA) Trace (Normal) H 11/10/24 10:42 Urine Ketones Negative (Negative) 11/10/24 10:42 Urine Blood Negative (Negative) 11/10/24 10:42 Urine Nitrate Negative (Negative) 11/10/24 10:42 Urine Bilirubin Negative (Negative) 11/10/24 10:42 Urine Urobilinogen 1.0 mg/dL (Negative) 11/10/24 10:42 Ur Leukocyte Esterase 1+ (Negative) A 11/10/24 10:42 Urine RBC 0-2 /hpf (0-2) 11/10/24 10:42 Urine WBC 0-5 /hpf (0-5) 11/10/24 10:42 Ur Squamous Epith Cells 0-5 /hpf (0-5) 11/10/24 10:42 Amorphous Sediment Not Reportable 11/10/24 10:42 Urine Bacteria None seen /hpf (NONE) 11/10/24 10:42 Hyaline Casts 0.81 /lpf 11/10/24 10:42 All radiology interpretation(s) finalized by discharge Discharge Plan Discharge Patient Disposition: Home Clinical Impression: Hernia, hiatal Condition: Stable Prescriptions: No Action montelukast [Singulair] 10 mg tablet 10 mg PO DAILY magnesium 250 mg tablet 250 mg PO BID furosemide 40 mg tablet 40 mg PO BID pantoprazole [Protonix] 40 mg tablet,delayed release (DR/EC) 40 mg PO DAILY donepezil 5 mg tablet 5 mg PO DAILY (DME) ASO brace 9 See Rx Instructions .Route .MEDSUPPLY Qty: 1 0RF Rx Instructions: As directed (DME) Left [facility] See Rx Instructions .Route .MEDSUPPLY Qty: 1 0RF Rx Instructions: As directed prednisone 5 mg tablet 5 mg PO DAILY memantine 5 mg tablet 5 mg PO BID warfarin 1 mg tablet 1 mg PO DIRECTED Protocol: Dose Management Condition: Monday Dose/Route: 4 mg Instruction: 1 x 4 mg tablet Condition: Monday Dose/Route: 5 mg Instruction: 1 x 5 mg tablet Condition: Monday Dose/Route: 5 mg Instruction: 1 x 5 mg tablet Condition: Monday Dose/Route: 5 mg Instruction: 1 x 5 mg tablet Condition: Dose/Route: 5 mg Instruction: 1 x 5 mg tablet Condition: Monday Dose/Route: 4 mg Instruction: 1 x 4 mg tablet Condition: Monday Dose/Route: 4 mg Instruction: 1 x 4 mg tablet Protocol Text: Adjustment Start Date: Monday09/30/24 INR Value: 2.7 INR Date: 09/30/24 Recheck Date: 10/07/24 Rx Instructions: Take 1 tablet by mouth on Monday, , Monday and Monday. warfarin 5 mg tablet See Rx Instructions .ROUTE .COMPLEX Qty: 90 3RF Protocol: Dose Management Condition: Monday Dose/Route: 4 mg Instruction: 1 x 4 mg tablet Condition: Monday Dose/Route: 5 mg Instruction: 1 x 5 mg tablet Condition: Monday Dose/Route: 5 mg Instruction: 1 x 5 mg tablet Condition: Monday Dose/Route: 5 mg Instruction: 1 x 5 mg tablet Condition: Dose/Route: 5 mg Instruction: 1 x 5 mg tablet Condition: Monday Dose/Route: 4 mg Instruction: 1 x 4 mg tablet Condition: Monday Dose/Route: 4 mg Instruction: 1 x 4 mg tablet Protocol Text: Adjustment Start Date: Monday09/30/24 INR Value: 2.7 INR Date: 09/30/24 Recheck Date: 10/07/24 Dose Instruction: TAKE 1 TABLET EVERY DAY DIRECTED Rx Instructions: TAKE 1 TABLET EVERY DAY DIRECTED losartan 25 mg tablet See Rx Instructions .ROUTE .COMPLEX Qty: 90 3RF Dose Instruction: TAKE 1 TABLET BY MOUTH EVERY DAY Rx Instructions: TAKE 1 TABLET BY MOUTH EVERY DAY metolazone 5 mg tablet 5 mg PO DAILY PRN (Reason: Edema) citalopram 20 mg tablet 20 mg PO DAILY loratadine 10 mg tablet 10 mg PO DAILY atorvastatin 40 mg tablet 40 mg PO QPM sotalol [Sotalol AF] 120 mg tablet 120 mg PO QPM warfarin 4 mg tablet See Rx Instructions .ROUTE .COMPLEX Protocol: Dose Management Condition: Monday Dose/Route: 4 mg Instruction: 1 x 4 mg tablet Condition: Monday Dose/Route: 5 mg Instruction: 1 x 5 mg tablet Condition: Monday Dose/Route: 5 mg Instruction: 1 x 5 mg tablet Condition: Monday Dose/Route: 5 mg Instruction: 1 x 5 mg tablet Condition: Dose/Route: 5 mg Instruction: 1 x 5 mg tablet Condition: Monday Dose/Route: 4 mg Instruction: 1 x 4 mg tablet Condition: Monday Dose/Route: 4 mg Instruction: 1 x 4 mg tablet Protocol Text: Adjustment Start Date: Monday09/30/24 INR Value: 2.7 INR Date: 09/30/24 Recheck Date: 10/07/24 Rx Instructions: TAKE 1 TABLET BY MOUTH EVERY DAY EXCEPT MONDAY AND MONDAY, CURRENTLY. warfarin 3 mg tablet See Rx Instructions .ROUTE .COMPLEX Protocol: Dose Management Condition: Monday Dose/Route: 4 mg Instruction: 1 x 4 mg tablet Condition: Monday Dose/Route: 5 mg Instruction: 1 x 5 mg tablet Condition: Monday Dose/Route: 5 mg Instruction: 1 x 5 mg tablet Condition: Monday Dose/Route: 5 mg Instruction: 1 x 5 mg tablet Condition: Dose/Route: 5 mg Instruction: 1 x 5 mg tablet Condition: Monday Dose/Route: 4 mg Instruction: 1 x 4 mg tablet Condition: Monday Dose/Route: 4 mg Instruction: 1 x 4 mg tablet Protocol Text: Adjustment Start Date: Monday09/30/24 INR Value: 2.7 INR Date: 09/30/24 Recheck Date: 10/07/24 Rx Instructions: TAKE 1 TABLET BY MOUTH ON MONDAY AND MONDAY, CURRENTLY. potassium chloride 20 mEq tablet,ER particles/crystals 20 meq PO BID spironolactone 50 mg tablet 50 mg PO DAILY levothyroxine 75 mcg tablet 75 mcg PO QAM metformin 500 mg tablet extended release 24 hr 500 mg PO BID sotalol [Sotalol AF] 160 mg tablet 160 mg PO QAM albuterol sulfate 90 mcg/actuation HFA aerosol inhaler 2 puff INHALATION Q4H PRN (Reason: Shortness Of Breath) mometasone 0.1 % cream 1 applic TOPICAL PRN PRN (Reason: Skin Irritation) Discharge Orders: Discharge ED (Routine); Ordered 11/10/24 Ordered By: Alvin Wise Referrals: Pankaj Dela Cruz MD [Primary Care Provider, Family Practice] Patient Instructions: Hiatal Hernia Activity Restrictions/Additional Instructions: Talk with your doctors about restarting Protonix. Also talk to your doctor about possible referral to surgeon to discuss surgical options for the hiatal hernia. Print Language: Bahamian Coding Level of Care Code ED Equipment Service Technician for Chema Yost
== END 2024-11-10 13:29 | disposition home or self-care (01) ==
PROVIDERS: Emergency Provider Emergency Medicine; PCP Family Medicine
DX: K44.9 Diaphragmatic hernia without obstruction or gangrene (principal); Z79.01 Long term (current) use of anticoagulants; Z79.84 Long term (current) use of oral hypoglycemic drugs; E11.22 Type 2 diabetes mellitus with diabetic chronic kidney disease; I13.0 Hypertensive heart and chronic kidney disease with heart failure and stage 1 through stage 4 chronic kidney disease, or unspecified chronic kidney disease; N18.4 Chronic kidney disease, stage 4 (severe); I50.32 Chronic diastolic (congestive) heart failure
CPT/HCPCS: 74177; 80053; 81001; 83690; 85025; 93005; 99285

== ENCOUNTER 2024-11-15 13:53 | Emergency (ER) | payer MEDICARE, SELFPAY ==
[2024-11-15 14:12] VITALS: BP 139/66; PULSE 65; RESP 16; TEMP 36.7; O2SAT 94
[2024-11-15 15:18] LABS: Basophils # 0.1 10^3/uL (0.0-0.1); Basophils % 0.4 %; Eosinophils % 0.3 %; Hematocrit 29.9 % (36-47); Lymphocytes # 2.7 10^3/uL (0.8-4.8); Mean Corpuscular HGB Conc 30.4 g/dL (30-55); Mean Corpuscular Hemoglobin 24.5 pg (27-33); Mean Corpuscular Volume 80.4 fl (85-98); Mean Platelet Volume 10.6 fL (7.4-10.4); Monocytes # 1.2 10^3/uL (0.2-0.9); Monocytes % 9.7 %; Neutrophils # 8.13 10^3/uL (1.8-7.7); Neutrophils % 67.2 %; Nucleated Red Blood Cells % 0 %; Platelet Count 292 10^3/cmm (157-399); Red Blood Count 3.72 10^6/uL (3.85-5.65); Red Cell Distribution Width 16.5 % (12.1-15.1)
[2024-11-15 15:40] VITALS: BP 156/73; PULSE 67; RESP 16; O2SAT 95
[2024-11-15 15:40] LABS: Alanine Aminotransferase 21 U/L (0-33); Albumin Level 4.2 g/dL (3.5-5.2); Alkaline Phosphatase 110 U/L (35-105); Anion Gap 20.3 (5-19); Aspartate Amino Transferase 18 U/L (0-32); Blood Urea Nitrogen 41 mg/dL (8-23); Calcium 11.4 mg/dL (8.5-10.5); Carbon Dioxide 26 mmol/L (22-29); Chloride 89 mmol/L (98-107); Creatinine Clr Calc Pharmacy 23.5958; Globulin 3.6 g/dL (1.3-4.6); Glucose 236 mg/dL (65-115); Osmolality Calculated 292 mOsm/kg (285-295); Potassium 3.3 mmol/L (3.5-5.1); Sodium 132 mmol/L (136-145); Total Bilirubin 0.3 mg/dL (0.15-1.2); Total Protein 7.8 g/dL (6.6-8.7)
[2024-11-15] MEDS: sodium chloride 0.9% 1,000 ML 999 ML IV (16:25)
[2024-11-15 16:26] VITALS: BP 147/65; PULSE 65; RESP 16; O2SAT 96
[2024-11-15 17:01] VITALS: BP 142/64; PULSE 68; RESP 16; O2SAT 93
[2024-11-15 17:54] VITALS: BP 145/65; PULSE 65; RESP 16; O2SAT 93
[2024-11-15 18:27] LABS: Blood Urea Nitrogen 38 mg/dL (8-23); Creatinine Clr Calc Pharmacy 25.9553
[2024-11-15 18:39] VITALS: BP 149/76; PULSE 65; RESP 16; O2SAT 96
--- NOTE | 2024-11-15 19:37 | W.ED.RECABL ---
HPI - Recheck/Abnormal Lab/Rx General: Chief Complaint: Recheck/Abnormal Lab/Rx Stated Complaint: adnormal lab work Time Seen by Provider: 11/15/24 15:33 History of Present Illness: This patient is a 79-year-old white female who presents to the emergency department complaining of feeling somewhat lightheaded and nauseous. Patient has been taking 40 mg of Lasix twice per day as well as 5 mg of metolazone over the last several days for edema. 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 Related Data Home Medications ?Medication ?Instructions ?Recorded ?Confirmed furosemide 40 mg tablet 40 mg PO BID 05/29/19 11/10/24 magnesium 250 mg tablet 250 mg PO BID 05/29/19 11/10/24 montelukast 10 mg tablet 10 mg PO DAILY 05/29/19 11/10/24 (Singulair) warfarin 1 mg tablet 1 mg PO DIRECTED 08/15/19 11/10/24 pantoprazole 40 mg tablet,delayed 40 mg PO DAILY 01/13/21 11/10/24 release (Protonix) donepezil 5 mg tablet 5 mg PO DAILY 04/05/22 11/10/24 memantine 5 mg tablet 5 mg PO BID 02/01/23 11/10/24 prednisone 5 mg tablet 5 mg PO DAILY 02/01/23 11/10/24 atorvastatin 40 mg tablet 40 mg PO QPM 01/10/24 11/10/24 citalopram 20 mg tablet 20 mg PO DAILY 01/10/24 11/10/24 loratadine 10 mg tablet 10 mg PO DAILY 01/10/24 11/10/24 metolazone 5 mg tablet 5 mg PO DAILY PRN Edema 01/10/24 11/10/24 potassium chloride 20 mEq 20 meq PO BID 01/10/24 11/10/24 tablet,extended release(part/cryst) sotalol 120 mg tablet (Sotalol AF) 120 mg PO QPM 01/10/24 11/10/24 spironolactone 50 mg tablet 50 mg PO DAILY 01/10/24 11/10/24 warfarin 3 mg tablet See Rx Instructions .Route .COMPLEX 01/10/24 11/10/24 warfarin 4 mg tablet See Rx Instructions .Route .COMPLEX 01/10/24 11/10/24 albuterol sulfate 90 mcg/actuation 2 puff inhalation Q4H PRN 04/21/24 11/10/24 aerosol inhaler Shortness Of Breath levothyroxine 75 mcg tablet 75 mcg PO QAM 04/21/24 11/10/24 metformin 500 mg tablet,extended 500 mg PO BID 04/21/24 11/10/24 release 24 hr mometasone 0.1 % topical cream 1 applic topical PRN PRN Skin 04/21/24 11/10/24 Irritation sotalol 160 mg tablet (Sotalol AF) 160 mg PO QAM 04/21/24 11/10/24 Previous Rx's ?Medication ?Instructions ?Recorded warfarin 5 mg tablet See Rx Instructions .Route 03/01/21 .COMPLEX #90 tabs ASO brace #1 ea 03/28/22 Left [place] AFO brace #1 ea 06/06/22 losartan 25 mg tablet See Rx Instructions .Route 07/15/24 .COMPLEX #90 tabs Allergies Allergy/AdvReac Type Severity Reaction Status Date / Time adhesive tape Allergy ALGY-Rash Verified 08/19/24 10:17 Review of Systems General: Reports: 10 or more systems reviewed and unremarkable except in HPI and below Card: Reports: lightheadedness GI: Reports: nausea PFSH ED PFSH: Medical History Carotid occlusion, bilateral GI bleed Anemia Concern of GI bleeding. Protonix 40 mg twice daily. Received 1 unit of blood. Repeat CBC as an outpatient. Stop Coumadin. Consider initiation of low-dose aspirin, on follow-up with primary Acute on chronic diastolic heart failure Improved compensation Diabetes mellitus type 2, noninsulin dependent Chronic kidney disease, stage IV (severe) Stable Hypothyroidism Congestive heart failure Chronic diastolic Hypertension Chronic anticoagulation Hypercholesteremia Valvular heart disease Atrial fibrillation History of endocardial and epicardial ablation, AV ervin ablation, maze procedure . Currently on Betapace 160 mg p.o. twice daily Surgical History S/P aortic valve replacement with bioprosthetic valve S/P mitral valve replacement with bioprosthetic valve History of open heart surgery Hx of cholecystectomy H/O prior ablation treatment History of hernia repair History of hysterectomy H/O esophagogastroduodenoscopy 06/17/2019: Gastric erosions, hiatal hernia Hx of colonoscopy Family History Father CAD (coronary artery disease) Brother CAD (coronary artery disease) Diabetes Mother Dementia Family/Other Lung disease Denies family history of Clotting disorder Chronic kidney disease (CKD) Suicide Anesthesia complication Bleeding disorder Cancer Stroke Social History Smoking and tobacco/nicotine status: never used tobacco/nicotine Second hand smoke exposure: No Alcohol intake: never Substance/Drug Use: never Adopted: No Caregiver/support person: Yes Lives independently: Yes Household members: spouse Housing: House Marital status: Highest education level completed: High School Graduate service: No Current occupational status: retired Current occupational exposures/hazards: No Pets and animals: No Sexually active: No Do you think of yourself as: Straight/Heterosexual Current gender identity: Female 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 Special danielle needs: No Agree to transfusion: No Physical Exam Const: COMMON NORMALS: no acute distress, patient oriented x3 and no limitations GENERAL APPEARANCE: cooperative and comfortable HENMT: COMMON NORMALS: normocephalic, atraumatic, Normal nasal mucous membranes and turbinates present, moist oral mucous membranes and oropharynx normal HEAD & SCALP: normal to inspection, normocephalic and atraumatic FACE & SINUS: normal facial exam NOSE: Normal nasal mucous membranes and turbinates present MOUTH: moist mucous membranes not abnormal (Dry) Eye: COMMON NORMALS: Equal, round and reactive pupils present, EOMs intact bilaterally and conjunctivae normal GENERAL EYE: appearance normal, both eyes and all related structures CONJUNCTIVA: Yes conjunctivae normal PUPIL: Yes Equal, round and reactive pupils present Neck/C-Spine: COMMON NORMALS: supple and no JVD Chest: COMMONS NORMALS: normal inspection of the chest Resp: COMMON NORMALS: normal respiratory effort and clear to auscultation bilaterally AUSCULTATION: clear to auscultation bilaterally Cardio: COMMON NORMALS: no JVD, regular rate, regular rhythm, No gallops present (Cardio), No murmurs present (Cardio) and No rub (Cardio) RATE: regular rate RHYTHM: regular rhythm GI: COMMON NORMALS: Normal to inspection, nondistended, normoactive bowel sounds present, Soft to palpation and non-tender AUSCULTATION: Yes normoactive bowel sounds PALPATION: Yes Soft to palpation : COMMON NORMALS: Yes no CVA tenderness BLADDER/KIDNEY EXAM: Yes no CVA tenderness Back/Pelvis: COMMON NORMALS: no CVA tenderness and thoracic and lumbar spine normal to inspection Extremity: COMMON NORMALS: normal to inspection Neuro: COMMON NORMALS: patient oriented x3 and CN's II-XII intact bilaterally Psych: COMMON NORMALS: mental status grossly normal, Normal thought process present and cooperative THOUGHT PROCESS: Normal thought process present Skin: COMMON NORMALS: no rashes or lesions noted, turgor normal and no jaundice GENERAL SKIN EXAM: no rashes or lesions noted and turgor normal Course Vital Signs: Vital signs: Vital Signs Temperature 98.1 F 11/15/24 14:12 Pulse Rate 65 11/15/24 18:39 Respiratory Rate 16 11/15/24 18:39 Blood Pressure 149/76 11/15/24 18:39 Pulse Oximetry 96 11/15/24 18:39 Oxygen Delivery Me thod Room Air 11/15/24 14:12 MDM - Recheck/Abnormal Lab/Rx Medical Decision Making CBC reveals white blood cell count of 12.9 and hemoglobin of 9.1. Hemoglobin is stable. CMP revealed a sodium of 132, potassium 3.3, BUN 41 creatinine of 2.2. Blood sugar 236. Patient appears to be dehydrated from taking too many diuretics. We did give her a 1 L bolus of normal saline and rechecked her BUN which was 38 and creatinine which was 2.0. I recommended she decrease her Lasix to 40 mg/day for the next 3 days and do not take any metolazone. Follow-up with primary care provider early next week for recheck of BUN and creatinine and for further advice on diuretics. She was discharged in stable condition. Lab Data 11/15/24 14:57 11/15/24 18:01 Laboratory Results WBC 12.10 10^3/uL (3.29-11.43) H 11/15/24 14:57 RBC 3.72 10^6/uL (3.85-5.65) L 11/15/24 14:57 Hgb 9.10 g/dL (11.27-16.99) L 11/15/24 14:57 Hct 29.9 % (36-47) L 11/15/24 14:57 MCV 80.4 fl (85-98) L 11/15/24 14:57 MCH 24.5 pg (27-33) L 11/15/24 14:57 MCHC 30.4 g/dL (30-55) 11/15/24 14:57 RDW 16.5 % (12.1-15.1) H 11/15/24 14:57 Plt Count 292 10^3/cmm (157-399) 11/15/24 14:57 MPV 10.6 fL (7.4-10.4) H 11/15/24 14:57 Neut % (Auto) 67.2 % 11/15/24 14:57 Lymph % (Auto) 22.0 % 11/15/24 14:57 Clare % (Auto) 9.7 % 11/15/24 14:57 Eos % (Auto) 0.3 % 11/15/24 14:57 Baso % (Auto) 0.4 % 11/15/24 14:57 Neut # (Auto) 8.13 10^3/uL (1.8-7.7) H 11/15/24 14:57 Lymph # (Auto) 2.7 10^3/uL (0.8-4.8) 11/15/24 14:57 Clare # (Auto) 1.2 10^3/uL (0.2-0.9) H 11/15/24 14:57 Eos # (Auto) 0.0 10^3/uL (0.0-0.8) 11/15/24 14:57 Baso # (Auto) 0.1 10^3/uL (0.0-0.1) 11/15/24 14:57 Nucleated RBC % (auto) 0 % 11/15/24 14:57 Nucleated RBCs # 0.0 /100WBC 11/15/24 14:57 Sodium 132 mmol/L (136-145) L 11/15/24 14:57 Potassium 3.3 mmol/L (3.5-5.1) L 11/15/24 14:57 Chloride 89 mmol/L (98-107) L 11/15/24 14:57 Carbon Dioxide 26 mmol/L (22-29) 11/15/24 14:57 Anion Gap 20.3 (5-19) H 11/15/24 14:57 BUN 38 mg/dL (8-23) H 11/15/24 18:01 Creatinine 2.0 mg/dL (0.5-0.9) H 11/15/24 18:01 GFR Calculation Not Reportable 11/15/24 18:01 Glucose 236 mg/dL (65-115) H 11/15/24 14:57 Calculated Osmolality 292 mOsm/kg (285-295) 11/15/24 14:57 Calcium 11.4 mg/dL (8.5-10.5) H 11/15/24 14:57 Total Bilirubin 0.3 mg/dL (0.15-1.2) 11/15/24 14:57 AST 18 U/L (0-32) 11/15/24 14:57 ALT 21 U/L (0-33) 11/15/24 14:57 Alkaline Phosphatase 110 U/L (35-105) H 11/15/24 14:57 Total Protein 7.8 g/dL (6.6-8.7) 11/15/24 14:57 Albumin 4.2 g/dL (3.5-5.2) 11/15/24 14:57 Globulin 3.6 g/dL (1.3-4.6) 11/15/24 14:57 No radiology studies performed this visit Discharge Plan Discharge Patient Disposition: Home Clinical Impression: Dehydration Condition: Stable Prescriptions: No Action montelukast [Singulair] 10 mg tablet 10 mg PO DAILY magnesium 250 mg tablet 250 mg PO BID furosemide 40 mg tablet 40 mg PO BID pantoprazole [Protonix] 40 mg tablet,delayed release (DR/EC) 40 mg PO DAILY donepezil 5 mg tablet 5 mg PO DAILY (DME) ASO brace 9 See Rx Instructions .Route .MEDSUPPLY Qty: 1 0RF Rx Instructions: As directed (DME) [facility] See Rx Instructions .Route .MEDSUPPLY Qty: 1 0RF Rx Instructions: As directed prednisone 5 mg tablet 5 mg PO DAILY memantine 5 mg tablet 5 mg PO BID warfarin 1 mg tablet 1 mg PO DIRECTED Protocol: Dose Management Condition: Monday Dose/Route: 4 mg Instruction: 1 x 4 mg tablet Condition: Monday Dose/Route: 5 mg Instruction: 1 x 5 mg tablet Condition: Monday Dose/Route: 5 mg Instruction: 1 x 5 mg tablet Condition: Monday Dose/Route: 5 mg Instruction: 1 x 5 mg tablet Condition: Dose/Route: 5 mg Instruction: 1 x 5 mg tablet Condition: Monday Dose/Route: 4 mg Instruction: 1 x 4 mg tablet Condition: Monday Dose/Route: 4 mg Instruction: 1 x 4 mg tablet Protocol Text: Adjustment Start Date: Monday09/30/24 INR Value: 2.7 INR Date: 09/30/24 Recheck Date: 10/07/24 Rx Instructions: Take 1 tablet by mouth on Monday, , Monday and Monday. warfarin 5 mg tablet See Rx Instructions .ROUTE .COMPLEX Qty: 90 3RF Protocol: Dose Management Condition: Monday Dose/Route: 4 mg Instruction: 1 x 4 mg tablet Condition: Monday Dose/Route: 5 mg Instruction: 1 x 5 mg tablet Condition: Monday Dose/Route: 5 mg Instruction: 1 x 5 mg tablet Condition: Monday Dose/Route: 5 mg Instruction: 1 x 5 mg tablet Condition: Dose/Route: 5 mg Instruction: 1 x 5 mg tablet Condition: Monday Dose/Route: 4 mg Instruction: 1 x 4 mg tablet Condition: Monday Dose/Route: 4 mg Instruction: 1 x 4 mg tablet Protocol Text: Adjustment Start Date: Monday09/30/24 INR Value: 2.7 INR Date: 09/30/24 Recheck Date: 10/07/24 Dose Instruction: TAKE 1 TABLET EVERY DAY DIRECTED Rx Instructions: TAKE 1 TABLET EVERY DAY DIRECTED losartan 25 mg tablet See Rx Instructions .ROUTE .COMPLEX Qty: 90 3RF Dose Instruction: TAKE 1 TABLET BY MOUTH EVERY DAY Rx Instructions: TAKE 1 TABLET BY MOUTH EVERY DAY metolazone 5 mg tablet 5 mg PO DAILY PRN (Reason: Edema) citalopram 20 mg tablet 20 mg PO DAILY loratadine 10 mg tablet 10 mg PO DAILY atorvastatin 40 mg tablet 40 mg PO QPM sotalol [Sotalol AF] 120 mg tablet 120 mg PO QPM warfarin 4 mg tablet See Rx Instructions .ROUTE .COMPLEX Protocol: Dose Management Condition: Monday Dose/Route: 4 mg Instruction: 1 x 4 mg tablet Condition: Monday Dose/Route: 5 mg Instruction: 1 x 5 mg tablet Condition: Monday Dose/Route: 5 mg Instruction: 1 x 5 mg tablet Condition: Monday Dose/Route: 5 mg Instruction: 1 x 5 mg tablet Condition: Dose/Route: 5 mg Instruction: 1 x 5 mg tablet Condition: Monday Dose/Route: 4 mg Instruction: 1 x 4 mg tablet Condition: Monday Dose/Route: 4 mg Instruction: 1 x 4 mg tablet Protocol Text: Adjustment Start Date: Monday09/30/24 INR Value: 2.7 INR Date: 09/30/24 Recheck Date: 10/07/24 Rx Instructions: TAKE 1 TABLET BY MOUTH EVERY DAY EXCEPT MONDAY AND MONDAY, CURRENTLY. warfarin 3 mg tablet See Rx Instructions .ROUTE .COMPLEX Protocol: Dose Management Condition: Monday Dose/Route: 4 mg Instruction: 1 x 4 mg tablet Condition: Monday Dose/Route: 5 mg Instruction: 1 x 5 mg tablet Condition: Monday Dose/Route: 5 mg Instruction: 1 x 5 mg tablet Condition: Monday Dose/Route: 5 mg Instruction: 1 x 5 mg tablet Condition: Dose/Route: 5 mg Instruction: 1 x 5 mg tablet Condition: Monday Dose/Route: 4 mg Instruction: 1 x 4 mg tablet Condition: Monday Dose/Route: 4 mg Instruction: 1 x 4 mg tablet Protocol Text: Adjustment Start Date: Monday09/30/24 INR Value: 2.7 INR Date: 09/30/24 Recheck Date: 10/07/24 Rx Instructions: TAKE 1 TABLET BY MOUTH ON MONDAY AND MONDAY, CURRENTLY. potassium chloride 20 mEq tablet,ER particles/crystals 20 meq PO BID spironolactone 50 mg tablet 50 mg PO DAILY levothyroxine 75 mcg tablet 75 mcg PO QAM metformin 500 mg tablet extended release 24 hr 500 mg PO BID sotalol [Sotalol AF] 160 mg tablet 160 mg PO QAM albuterol sulfate 90 mcg/actuation HFA aerosol inhaler 2 puff INHALATION Q4H PRN (Reason: Shortness Of Breath) mometasone 0.1 % cream 1 applic TOPICAL PRN PRN (Reason: Skin Irritation) Discharge Orders: Discharge ED (Routine); Ordered 11/15/24 Ordered By: Alvin Wise Referrals: Pankaj Dela Cruz MD [Primary Care Provider, [facility]] Patient Instructions: Dehydration (ED) Activity Restrictions/Additional Instructions: Decrease your Lasix to 40 mg/day for the next 3 days and then resume twice daily dosing. Do not take metolazone at this time. Follow-up with your primary care provider early next week for recheck of your BUN and creatinine. 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
== END 2024-11-15 18:50 | disposition home or self-care (01) ==
PROVIDERS: Physician Assistant; Emergency Provider Emergency Medicine; PCP Family Medicine
DX: E86.0 Dehydration (principal); Z79.01 Long term (current) use of anticoagulants; E11.22 Type 2 diabetes mellitus with diabetic chronic kidney disease; I13.0 Hypertensive heart and chronic kidney disease with heart failure and stage 1 through stage 4 chronic kidney disease, or unspecified chronic kidney disease; N18.4 Chronic kidney disease, stage 4 (severe); I50.32 Chronic diastolic (congestive) heart failure
CPT/HCPCS: 36415; 80053; 82565; 84520; 85025; 96360; 96361; 99284; J7030

== ENCOUNTER 2024-12-26 08:14 | Oncology outpatient (recurring) (ONCR) | payer MEDICARE, SELFPAY ==
[2024-12-26] MEDS: iron sucrose 200 MG in sodium chloride 0.9% (100 ml) 100 ML IV (09:01)
[2024-12-26 09:39] VITALS: BP 112/66; PULSE 63; RESP 18; TEMP 35.9
== END 2024-12-26 23:59 | disposition home or self-care (01) ==
PROVIDERS: PCP Family Medicine; Visit Provider Internal Medicine
DX: D50.9 Iron deficiency anemia, unspecified (principal); Z79.899 Other long term (current) drug therapy
CPT/HCPCS: 96365; J1756; J7050

== ENCOUNTER 2025-01-06 08:45 | Oncology outpatient (recurring) (ONCR) | payer MEDICARE, SELFPAY ==
[2024-12-30 09:58] VITALS: BP 105/51; PULSE 53; RESP 16; TEMP 36.4; O2SAT 95
[2024-12-30] MEDS: iron sucrose 200 MG in sodium chloride 0.9% (100 ml) 100 ML IV (10:11)
[2024-12-30 10:50] VITALS: BP 116/56; PULSE 58; RESP 16; TEMP 36.4; O2SAT 95
[2025-01-01] MEDS: iron sucrose 200 MG in sodium chloride 0.9% (100 ml) 100 ML IV (09:50)
[2025-01-01 14:43] VITALS: BP 112/62; PULSE 64; RESP 16; TEMP 36.7; O2SAT 96
[2025-01-03] MEDS: iron sucrose 200 MG in sodium chloride 0.9% (100 ml) 100 ML IV (09:24)
[2025-01-03 10:07] VITALS: BP 120/59; PULSE 56; TEMP 36; O2SAT 91
[2025-01-06] MEDS: iron sucrose 200 MG in sodium chloride 0.9% (100 ml) 100 ML IV (09:24)
== END 2025-01-26 23:59 | disposition home or self-care (01) ==
PROVIDERS: PCP Family Medicine; Visit Provider Internal Medicine Medical Oncology
DX: D50.8 Other iron deficiency anemias (principal); Z79.899 Other long term (current) drug therapy
CPT/HCPCS: 96365; J1756; J7050